=== PATIENT | female | born 1945 | race Caucasian/White ===

== ENCOUNTER 2024-04-15 17:43 | Inpatient (IN) | payer MEDICARE, SELFPAY ==
[2024-04-15] VITALS (7 sets, daily range): BP systolic 121–162; BP diastolic 63–86; PULSE 75–95; TEMP 36.7–36.8; O2SAT 75–100; BMI 29.9; BMI 27.2
--- NOTE | 2024-04-15 17:53 | CT_ITS ---
The [address] [address] Patient Name: KENTON EATON MRN: [id number] date: 1945 Sex: F Assigned Patient Location: ED.MAIN Current Patient Location: ER Accession/Order Number: [id number] Exam Date: 04/15/2024 18:38 Report Date: 04/15/2024 20:39 At the request of: AMBREEN THOMPSON Procedure: CT pelvis wo con EXAM: CT pelvis wo con HISTORY: Fell 2 days ago. COMPARISON: AP pelvis x-ray 10/29/2020 and left femur x-ray 04/15/2024 TECHNIQUE: Contiguous thin section axial scans obtained from mid abdomen just above iliac crest contiguously through the pelvis to the proximal femoral diaphyseal region with coronal and sagittal reformatted images. Reviewed in bone and soft tissue windows. Dose reduction techniques were achieved by using automated exposure control and/or adjustment of mA and/or kV according to patient size and/or use of iterative reconstruction technique. FINDINGS: There is an acute nondisplaced fracture involving the left greater trochanter. No extension along the intertrochanteric ridge or involving the lesser trochanter. This is confined to the posterior midportion of the greater trochanter. There is associated minimal adjacent hematoma around left greater trochanter. No additional acute fractures are identified in the lower lumbar spine or pelvis or femurs elsewhere. Significant osseous demineralization with suspected osteoporosis. 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 There is an old healed right ischial tuberosity fracture as well. No lytic or blastic bone process. There is severe degenerative disc disease at L4-5 with vacuum disc phenomenon and disc osteophyte changes contributing to bilateral moderate to severe neural foraminal narrowing. Severe bilateral L5-S1 facet arthropathy with preserved disc height. The imaged lower abdomen and pelvic structures are without acute abnormality otherwise. Mild stool retention. No acute or concerning bowel pathology. Urinary bladder is unremarkable. No pelvic abnormality. No pelvic mass or fluid collection or ascites. No adenopathy. CT/CT pelvis wo con IMPRESSION: 1. Acute nondisplaced LEFT greater trochanteric fracture with some minimal adjacent hematoma formation around fracture. 2. Osteoporosis suspected with significant demineralized bone. 3. 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 Electronically authenticated by: MOMO MUNOZ Date: 04/15/2024 20:39
--- NOTE | 2024-04-15 17:53 | ECG_ITS ---
The [facility] Test Date: 2024-04-15 Pat Name: KENTON EATON Department: Room: - Gender: Female [employer] Worker: : 1945 Requested By: [id number] Order Number: [id number] Reading MD: TOBIN REED Measurements Intervals [place] Rate: 73 P: 75 CO: 206 QRS: 79 QRSD: 86 T: 61 QT: 378 QTc: 404 Interpretive Statements 1100 Sinus rhythm 9110 normal ECG No previous ECG available for comparison Electronically Signed On 04-17-2024 8:51:41 EST by TOBIN REED
--- NOTE | 2024-04-15 17:53 | XR_ITS ---
[address] [address] Patient Name: KENTON EATON MRN: [id number] date: 1945 Sex: F Assigned Patient Location: ED.MAIN Current Patient Location: ER Accession/Order Number: [id number] Exam Date: 04/15/2024 18:48 Report Date: 04/15/2024 20:32 At the request of: AMBREEN THOMPSON Procedure: XR chest 1V EXAMINATION: XR chest 1V, , 04/15/2024 6:48 PM EST INDICATION: Fall HISTORY: Ordering Provider Reason for Exam: Fall Technologist Note: Additional: COMPARISON: None. TECHNIQUE: Chest x-ray: One view. FINDINGS: No pneumothorax, pleural effusion or focal airspace consolidation. Heart is normal in size. Bony thorax is unremarkable. XR/XR chest 1V IMPRESSION: No acute cardiopulmonary process. Electronically authenticated by: MERCEDES MCCARTHY Date: 04/15/2024 20:32
--- NOTE | 2024-04-15 17:55 | ED.GENADUL1 ---
HPI HPI - General Adult General Chief complaint: Fall Stated complaint: LEG PAIN, FALL Time Seen by Provider: 04/15/24 17:45 Source: patient Mode of arrival: ambulance Limitations: no limitations History of Present Illness HPI narrative: Patient is a 78-year-old female who presents to the ER from home for evaluation of worsening left lower extremity pain after a fall 2 days ago. She states she has a walker at home, she was carrying different items throughout her home when she picked up a water bottle and lost her balance falling on her left side. She complains of pain primarily over the left hip laterally radiating into the left thigh. She does have pain in the left knee and lower leg into the foot as well. She states she was able to ambulate yesterday and was able to transfer some with her walker earlier today but is having a harder time with her mobility. She requests a Avina catheter because she states it is hard for her to get up and walk to the bathroom at home. She is not anticoagulated. She denies head injury, loss of consciousness. She has no pain to the neck or back. Patient was noted to be hypoxic at 75% on room air on arrival to the ER, she refuses to wear home oxygen even though it is prescribed for her because she states it makes her nose dry. She denies feeling short of breath or having chest pain. Related Data Home Medications ?Medication ?Instructions ?Recorded ?Confirmed allopurinol 100 mg tablet mg 04/15/24 atorvastatin 10 mg tablet mg 04/15/24 baclofen 5 mg tablet mg 04/15/24 dapagliflozin propanediol 10 mg mg 04/15/24 tablet (Farxiga) Allergies Allergy/AdvReac Type Severity Reaction Status Date / Time aspirin Allergy Mild Abdominal Verified 04/15/24 17:53 Pain Opioid HPI Opioid Management Most Recent Opioid Data: No Data to Display PFSH PFSH Social History Little interest or pleasure in doing things: not at all Feeling down, depressed, or hopeless: not at all Exam Constitutional Vital Signs, click to edit/add: Last Vital Signs Temp 98.1 F 04/15/24 17:44 Pulse 95 H 04/15/24 17:44 Resp 24 H 04/15/24 17:44 BP 162/86 H 04/15/24 17:44 Pulse Ox 92 L 04/15/24 17:54 O2 Del Method Nasal Cannula 04/15/24 17:54 O2 Flow Rate 4 04/15/24 17:54 Course Vital Signs Vital signs: Vital Signs Temperature 98.1 F 04/15/24 17:44 Pulse Rate 95 H 04/15/24 17:44 Respiratory Rate 24 H 04/15/24 17:44 Blood Pressure 162/86 H 04/15/24 17:44 Pulse Oximetry 75 L 04/15/24 17:44 Oxygen Delivery Method Room Air 04/15/24 17:44 Temperature 98.1 F 04/15/24 17:44 Pulse Rate 95 H 04/15/24 17:44 Respiratory Rate 24 H 04/15/24 17:44 Blood Pressure 162/86 H 04/15/24 17:44 Pulse Oximetry 92 L 04/15/24 17:54 Oxygen Delivery Method Nasal Cannula 04/15/24 17:54 Oxygen Delivery Flow Rate 4 04/15/24 17:54 Medical Decision Making MDM Narrative Medical decision making narrative: Patient medicated with fentanyl, Norflex, Zofran on arrival. She is resting comfortably. She was hypoxic on arrival and placed on oxygen by nasal cannula. Patient has a nasal cannula at home with oxygen that she is supposed to wear but she refuses because it makes her nostrils dry. She only had hypoxia in the ER when she removed herself from oxygen. CT of the pelvis, x-rays of the left femur, left tib-fib and left foot show the patient has an acute nondisplaced left greater trochanter fracture with old healed fractures of the pelvis. She was also found to have a urinary tract infection. Chest x-ray is unremarkable. She was treated with IV Rocephin for the UTI. I discussed the CT and x-ray findings with Dr. Malhotra for orthopedics who related that this should be nonoperative and he will see the patient tomorrow as a consult. Patient and family are in agreement with admission as the patient has difficulty with her mobility. She is stable at time of admission SUPERVISED APC VISIT, PHYSICIAN ATTESTATION: Based on the medical record the care appears appropriate. ? Medical Records Medical records reviewed: Yes I reviewed the patient's medical records Lab Data Lab results reviewed: Yes I reviewed the patient's lab results Labs: Lab Results 04/15/24 04/15/24 Range/Units 18:05 18:10 WBC 9.2 (4.0-11.0) 10^3/uL RBC 4.11 L (4.20-5.40) 10^6/uL Hgb 13.4 (12.0-16.0) g/dL Hct 42.5 (36.0-48.0) % MCV 103.4 H (81.0-99.0) fL MCH 32.6 (26.7-34.0) pg MCHC 31.5 (29.9-35.2) g/dL RDW 14.4 (11.0-15.0) % Plt Count 143 L (150-450) 10^3/uL MPV 10.1 (9.5-13.5) fL Neut % (Auto) 58.4 (43.0-75.0) % Lymph % (Auto) 21.7 (20.5-60.0) % [place] % (Auto) 12.6 H (1.7-12.0) % Eos % (Auto) 4.9 (0.9-7.0) % Baso % (Auto) 1.5 (0.2-2.0) % Neut # (Auto) 5.4 (1.4-6.5) 10^3/uL Lymph # (Auto) 2.0 (1.2-3.8) 10^3/uL [place] # (Auto) 1.2 H (0.3-0.8) 10^3/uL Eos # (Auto) 0.5 (0.0-0.7) 10^3/uL Baso # (Auto) 0.1 (0.0-0.1) 10^3/uL Abs Immat Gran (auto) 0.08 H (0.00-0.03) 10^3/uL Imm/Tot Granulo (auto) 0.9 H (0.0-0.5) % PT 10.8 (9.0-11.6) sec INR 1.02 Sodium 144 (136-145) mmol/L Potassium 4.7 (3.5-5.1) mmol/L Chloride 107 (98-107) mmol/L Carbon Dioxide 34.0 H (21.0-32.0) mmol/L Anion Gap 7.7 BUN 33.0 H (7.0-18.0) mg/dL Creatinine 1.54 H (0.55-1.02) mg/dL Est GFR ( Amer) 40 L (>=60 mL/min/1.73m^2) Est GFR (Non-Af Amer) 33 L (>=60 mL/min/1.73m^2) BUN/Creatinine Ratio 21.4 Glucose 117 H (74-106) mg/dL Lactate 1.2 (0.4-2.0) mmol/L Calcium 8.7 (8.5-10.1) mg/dL Total Bilirubin 0.5 (0.2-1.0) mg/dL AST 19 (15-37) U/L ALT 19 (14-59) U/L Alkaline Phosphatase 95 (46-116) U/L Troponin I High Sens 33.5 (4.0-51.3) pg/mL NT-Pro-B Natriuret Pep 3290.0 H* (<=1800.0) pg/mL Total Protein 7.1 (6.4-8.2) g/dL Albumin 3.0 L (3.4-5.0) g/dL Globulin 4.1 g/dL Albumin/Globulin Ratio 0.7 Urine Color Yellow (YELLOW) Urine Clarity Clear (CLEAR) Urine pH 6.0 (5.0-9.0) Ur Specific [place] 1.020 (1.005-1.025) Urine Protein 100 A (NEG/TRACE) mg/dL Urine Glucose (UA) >=1000 A (NEGATIVE) mg/dL Urine Ketones Trace A (NEGATIVE) mg/dL Urine Occult Blood Trace-i (NEGATIVE) Urine Nitrite Positive A (NEGATIVE) Urine Bilirubin Negative (NEGATIVE) Urine Urobilinogen 0.2 (0.2-1.0) EU/dL Ur Leukocyte Esterase Negative (NEGATIVE) Urine RBC 2-5 A (0-2) #/HPF Urine WBC 10-20 A (NONE SEEN) #/HPF Ur Squamous Epith Cells Rare (NONE/RARE) #/LPF Urine Crystals None seen (None Seen) #/HPF Urine Bacteria Large A (NONE SEEN) #/HPF Urine Casts None seen (NONE SEEN) #/LPF Urine Mucus Trace A (NONE SEEN) Ur Culture Indicated? Yes Imaging Data Chest x-ray: Attestation: I have reviewed the pertinent imaging results. Radiologist's impression: ITS Impressions Chest X-Ray 04/15/24 17:53 IMPRESSION: No acute cardiopulmonary process. Electronically authenticated by: MERCEDES MCCARTHY Date: 04/15/2024 20:[address] 04/15/24 17:53 IMPRESSION: 1. Acute nondisplaced LEFT greater trochanteric fracture with some minimal adjacent hematoma formation around fracture. 2. Osteoporosis suspected with significant demineralized bone. 3. 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 Electronically authenticated by: MOMO MUNOZ Date: 04/15/2024 20:39 Femur X-Ray 04/15/24 18:40 IMPRESSION: 1. Acute nondisplaced left greater trochanteric fracture. 2. Correlating with CT today, sequelae of old left superior and inferior pubic rami fractures and remote right ischial tuberosity fracture. Please see CT for details. Electronically authenticated by: MOMO MUNOZ Date: 04/15/2024 20:41 Foot X-Ray 04/15/24 18:40 IMPRESSION: No acute bone or joint findings. Electronically authenticated by: MOMO MUNOZ Date: 04/15/2024 20:43 Tibia/Fibula X-Ray 04/15/24 18:40 IMPRESSION: No acute fracture of the left tibia and fibula. Soft tissue swelling is seen. Electronically authenticated by: MERCEDES MCCARTHY Date: 04/15/2024 20:36 ECG Data Attestation: I personally reviewed and interpreted this ECG as follows: (Normal sinus rhythm at a rate of [address] elevation or ectopy. EKG reviewed by attending physician) Discharge Plan Discharge Chief Complaint: Fall Clinical Impression: Closed fracture of greater trochanter of left femur, Acute UTI, Hypoxia Patient Disposition: Admitted As Inpatient Time of Disposition Decision: 21:05 Prescriptions / Home Meds: No Action atorvastatin 10 mg tablet allopurinol 100 mg tablet dapagliflozin propanediol [Farxiga] 10 mg tablet baclofen 5 mg tablet Print Language: Urdu Referrals: Physician,Non-Staff, MD [Physician] - 1 week
[2024-04-15 18:20] LABS: Basophils Absolute Auto 0.1 10^3/uL (0.0-0.1); Basophils Percent Auto 1.5 % (0.2-2.0); Eosinophils Absolute Auto 0.5 10^3/uL (0.0-0.7); Eosinophils Percent Auto 4.9 % (0.9-7.0); Hematocrit 42.5 % (36.0-48.0); Hemoglobin 13.4 g/dL (12.0-16.0); Immature Granulocytes Abs Auto 0.08 10^3/uL (0.00-0.03); Immature Granulocytes Pct Auto 0.9 % (0.0-0.5); Lymphocytes Percent Auto 21.7 % (20.5-60.0); Mean Corpuscular HGB Conc 31.5 g/dL (29.9-35.2); Mean Corpuscular Hemoglobin 32.6 pg (26.7-34.0); Mean Corpuscular Volume 103.4 fL (81.0-99.0); Mean Platelet Volume 10.1 fL (9.5-13.5); Monocytes Absolute Auto 1.2 10^3/uL (0.3-0.8); Monocytes Percent Auto 12.6 % (1.7-12.0); Neutrophils Absolute Auto 5.4 10^3/uL (1.4-6.5); Neutrophils Percent Auto 58.4 % (43.0-75.0); Platelet Count 143 10^3/uL (150-450); Red Blood Count 4.11 10^6/uL (4.20-5.40); Red Cell Distribution Width 14.4 % (11.0-15.0); White Blood Count 9.2 10^3/uL (4.0-11.0)
[2024-04-15 18:22] LABS: Bilirubin Urine NEGATIVE (NEGATIVE); Blood Urine TRACE-I (NEGATIVE); Clarity Urine CLEAR (CLEAR); Color Urine YELLOW (YELLOW); Glucose Urine UA >=1000 mg/dL (NEGATIVE); Ketones Urine TRACE mg/dL (NEGATIVE); Leukocyte Esterase Urine NEGATIVE (NEGATIVE); Nitrite Urine POSITIVE (NEGATIVE); Protein Urine 100 mg/dL (NEG/TRACE); Urobilinogen Urine 0.2 EU/dL (0.2-1.0)
[2024-04-15 18:28] LABS: Urine Microscopic Indicated YES
[2024-04-15 18:33] LABS: Bacteria Urine LARGE #/HPF (NONE SEEN); Cast Seen? NONE SEEN #/LPF (NONE SEEN); Crystals Seen? None Seen #/HPF (None Seen); Mucus Urine TRACE (NONE SEEN); Squamous Epithelial Cell Urine RARE #/LPF (NONE/RARE)
[2024-04-15 18:34] LABS: Urine Culture Indicated YES
[2024-04-15 18:38] LABS: INR 1.02; Prothrombin Time 10.8 sec (9.0-11.6)
--- NOTE | 2024-04-15 18:40 | XR_ITS ---
The [address] [address] Patient Name: KENTON EATON MRN: [id number] date: 1945 Sex: F Assigned Patient Location: ER Current Patient Location: ER Accession/Order Number: [id number] Exam Date: 04/15/2024 18:48 Report Date: 04/15/2024 20:36 At the request of: AMBREEN THOMPSON Procedure: XR tibia fibula LT 2V EXAM: XR tibia fibula LT 2V HISTORY: fall COMPARISON: None. TECHNIQUE: AP and lateral views of the left tibia and fibula FINDINGS: No acute fracture of the left tibia and fibula is seen. Soft tissue swelling is seen. XR/XR tibia fibula LT 2V IMPRESSION: No acute fracture of the left tibia and fibula. Soft tissue swelling is seen. Electronically authenticated by: MERCEDES MCCARTHY Date: 04/15/2024 20:36
--- NOTE | 2024-04-15 18:40 | XR_ITS ---
The [address] [address] Patient Name: KENTON EATON MRN: [id number] date: 1945 Sex: F Assigned Patient Location: ER Current Patient Location: Accession/Order Number: [id number] Exam Date: 04/15/2024 18:48 Report Date: 04/15/2024 20:43 At the request of: AMBREEN THOMPSON Procedure: XR foot LT min 3V EXAM: XR foot LT min 3V HISTORY: fall COMPARISON: None. TECHNIQUE: 3 view left foot. FINDINGS: Osseous demineralization. No acute fracture. Chronic hammertoe changes of second through fourth digits. Remaining joint spaces are maintained. No destructive or lytic or blastic bone lesion. Mild soft tissue swelling of forefoot. Plantar calcaneal enthesopathy. No other osseous lesion. Well-preserved joints and ankle and midfoot. No ankle mortise effusion. XR/XR foot LT min 3V IMPRESSION: No acute bone or joint findings. Electronically authenticated by: MOMO MUNOZ Date: 04/15/2024 20:43
--- NOTE | 2024-04-15 18:40 | XR_ITS ---
The [address] [address] Patient Name: KENTON EATON MRN: [id number] date: 1945 Sex: F Assigned Patient Location: ER Current Patient Location: ER Accession/Order Number: [id number] Exam Date: 04/15/2024 18:48 Report Date: 04/15/2024 20:41 At the request of: AMBREEN THOMPSON Procedure: XR femur LT 2V EXAM: XR femur LT 2V HISTORY: Fall COMPARISON: CT pelvis without same date, 04/15/2024 dictated separately. TECHNIQUE: Left femur imaging from hip to knee. Frontal and lateral views. 4 films, 2 frontal and 2 lateral. FINDINGS: There is an acute nondisplaced fracture near base of left greater trochanter. No other acute fractures are seen involving the left femur or at left hip or knee. Correlating with CT pelvis same day, there are old remote fractures involving left superior and inferior pubic rami and right ischial tuberosity. Please see CT report for details. Osseous demineralization. No lytic or blastic lesions. Left hip joint is maintained. There is some mild osteoarthritic changes at left knee. No joint effusion. No significant soft tissue swelling. XR/XR femur LT 2V IMPRESSION: 1. Acute nondisplaced left greater trochanteric fracture. 2. Correlating with CT today, sequelae of old left superior and inferior pubic rami fractures and remote right ischial tuberosity fracture. Please see CT for details. Electronically authenticated by: MOMO MUNOZ Date: 04/15/2024 20:41
[2024-04-15 18:46] LABS: Lactate/Lactic Acid 1.2 mmol/L (0.4-2.0)
[2024-04-15 18:53] LABS: Alanine Aminotransferase 19 U/L (14-59); Albumin Globulin Ratio 0.7; Alkaline Phosphatase 95 U/L (46-116); Anion Gap 7.7; Aspartate Amino Transferase 19 U/L (15-37); BUN Creatinine Ratio 21.4; Bilirubin Total 0.5 mg/dL (0.2-1.0); Calcium 8.7 mg/dL (8.5-10.1); Chloride 107 mmol/L (98-107); Estimated GFR (African America 40 (>=60 mL/min/1.73m^2); Estimated GFR (Non-African Ame 33 (>=60 mL/min/1.73m^2); Globulin 4.1 g/dL; Glucose 117 mg/dL (74-106); Potassium 4.7 mmol/L (3.5-5.1); Sodium 144 mmol/L (136-145); Total Protein 7.1 g/dL (6.4-8.2)
[2024-04-15] MEDS: ORPHENADRINE 60 MG/ 2 ML VIAL IV (19:07)
[2024-04-15] MEDS: FENTANYL CITRATE/PF 100 MCG/2 ML VIAL 50 MCG IV (19:07)
[2024-04-15] MEDS: ONDANSETRON PF 4 MG/2 ML VIAL IV (19:07)
[2024-04-15] MEDS: CEFTRIAXONE 1,000 MG in 0.9 % SODIUM CHLORIDE 50 ML 100 MG IV (19:08)
[2024-04-15 19:11] LABS: Troponin I High Sensitivity 33.5 pg/mL (4.0-51.3)
[2024-04-16] VITALS (13 sets, daily range): BP systolic 113–149; BP diastolic 66–82; PULSE 78–112; TEMP 36.3–36.8; O2SAT 90–97; BMI 27.2
[2024-04-16 06:10] LABS: Basophils Absolute Auto 0.1 10^3/uL (0.0-0.1); Basophils Percent Auto 1.6 % (0.2-2.0); Eosinophils Absolute Auto 0.4 10^3/uL (0.0-0.7); Eosinophils Percent Auto 5.4 % (0.9-7.0); Hematocrit 43.1 % (36.0-48.0); Hemoglobin 13.4 g/dL (12.0-16.0); Immature Granulocytes Abs Auto 0.06 10^3/uL (0.00-0.03); Immature Granulocytes Pct Auto 0.8 % (0.0-0.5); Lymphocytes Absolute Auto 1.7 10^3/uL (1.2-3.8); Lymphocytes Percent Auto 20.8 % (20.5-60.0); Mean Corpuscular HGB Conc 31.1 g/dL (29.9-35.2); Mean Corpuscular Hemoglobin 32.4 pg (26.7-34.0); Mean Corpuscular Volume 104.4 fL (81.0-99.0); Mean Platelet Volume 10.4 fL (9.5-13.5); Monocytes Percent Auto 12.2 % (1.7-12.0); Neutrophils Absolute Auto 4.7 10^3/uL (1.4-6.5); Neutrophils Percent Auto 59.2 % (43.0-75.0); Platelet Count 157 10^3/uL (150-450); Red Blood Count 4.13 10^6/uL (4.20-5.40); Red Cell Distribution Width 14.4 % (11.0-15.0); White Blood Count 7.9 10^3/uL (4.0-11.0)
[2024-04-16 06:26] LABS: Alanine Aminotransferase 15 U/L (14-59); Albumin Globulin Ratio 0.7; Albumin Level 2.8 g/dL (3.4-5.0); Alkaline Phosphatase 93 U/L (46-116); Anion Gap 6.4; Aspartate Amino Transferase 15 U/L (15-37); BUN Creatinine Ratio 19.6; Bilirubin Total 0.4 mg/dL (0.2-1.0); Calcium 8.4 mg/dL (8.5-10.1); Carbon Dioxide 34.4 mmol/L (21.0-32.0); Chloride 107 mmol/L (98-107); Estimated GFR (African America 43 (>=60 mL/min/1.73m^2); Estimated GFR (Non-African Ame 36 (>=60 mL/min/1.73m^2); Globulin 4.2 g/dL; Glucose 90 mg/dL (74-106); Magnesium 2.2 mg/dL (1.8-2.4); Potassium 4.8 mmol/L (3.5-5.1); Sodium 143 mmol/L (136-145)
--- NOTE | 2024-04-16 08:29 | PM.ORCN ---
History of Present Illness HPI Consult date: 04/16/24 Chief complaint: LEG PAIN, FALL, LEFT HIP FRACTURE, UTI Narrative: Caryn is a 78-year-old female that had presented to the emergency department yesterday after a fall 2 days prior to that. Patient states that she was carrying multiple things throughout her house and had bent over to sweet pickle maker another item and fell. She was admitted to the hospital after a CT scan of the pelvis revealed a nondisplaced greater trochanteric fracture of the femur. Orthopedics was consulted for further evaluation and management. Today she is having a lot of left lateral hip pain, worse with movement. She states that it somewhat radiates down her thigh. She denies any other pain at this time. [facility] Family History (Updated 04/15/24 @ 22:49 by Nat Pitts) Other Family history not known due to adoption Family history of cancer Social History (Updated 04/16/24 @ 06:38 by Nat Pitts) Within the past year, how often did you have a drink containing alcohol: never Score interpretation: A score less than 3 is consistent with normal alcohol consumption. Smoking status: Former smoker Non-prescribed substance use: denies use Highest level of school completed/degree received: 10th grade Little interest or pleasure in doing things: not at all Feeling down, depressed, or hopeless: not at all Feel stressed/tense/nervous/anxious/difficulty sleeping: not at all Meds Home Medications and Allergies Home Medications ?Medication ?Instructions ?Recorded ?Confirmed ?Type allopurinol 100 mg tablet mg 04/15/24 History atorvastatin 10 mg tablet mg 04/15/24 History baclofen 5 mg tablet mg 04/15/24 History dapagliflozin propanediol 10 mg mg 04/15/24 History tablet (Farxiga) Allergies Allergy/AdvReac Type Severity Reaction Status Date / Time aspirin Allergy Mild Abdominal Verified 04/15/24 17:53 Pain Exam Narrative Exam Narrative: On exam patient is in no distress, sitting up in the hospital bed, alert and oriented x 3. Hard of hearing. On inspection of the left hip/thigh there are some healing wounds, no ecchymosis, no erythema, no warmth to touch. On inspection of the bilateral lower extremities there is some ecchymosis to the medial aspect of the foot on the right. There is exquisite tenderness to palpation of the left greater trochanter. Limited ROM of the hip/leg secondary to pain. Positive logroll, pain laterally. 2+ DP pulses palpated bilaterally. 5/5 dorsiflexion/plantarflexion bilaterally. Sensation intact with light touch distally. Constitutional Vital Signs, click to edit/add: Last Vital Signs Temp 97.5 F L 04/16/24 03:42 Pulse 78 04/16/24 03:42 Resp 20 04/16/24 03:42 BP 148/78 H 04/16/24 03:42 Pulse Ox 90 L 04/16/24 06:37 O2 Del Method Nasal Cannula 04/16/24 06:37 O2 Flow Rate 6 04/16/24 06:37 Results Labs Labs: Abnormal lab results 04/15/24 04/15/24 04/16/24 Range/Units 18:05 18:10 05:07 RBC 4.11 L 4.13 L (4.20-5.40) 10^6/uL MCV 103.4 H 104.4 H (81.0-99.0) fL Plt Count 143 L (150-450) 10^3/uL [place] % (Auto) 12.6 H 12.2 H (1.7-12.0) % [place] # (Auto) 1.2 H 1.0 H (0.3-0.8) 10^3/uL Abs Immat Gran (auto) 0.08 H 0.06 H (0.00-0.03) 10^3/uL Imm/Tot Granulo (auto) 0.9 H 0.8 H (0.0-0.5) % Carbon Dioxide 34.0 H 34.4 H (21.0-32.0) mmol/L BUN 33.0 H 28.0 H (7.0-18.0) mg/dL Creatinine 1.54 H 1.43 H (0.55-1.02) mg/dL Est GFR ( Amer) 40 L 43 L (>=60 mL/min/1.73m^2) Est GFR (Non-Af Amer) 33 L 36 L (>=60 mL/min/1.73m^2) Glucose 117 H (74-106) mg/dL Calcium 8.4 L (8.5-10.1) mg/dL NT-Pro-B Natriuret Pep 3290.0 H* (<=1800.0) pg/mL Albumin 3.0 L 2.8 L (3.4-5.0) g/dL Urine Protein 100 A (NEG/TRACE) mg/dL Urine Glucose (UA) >=1000 A (NEGATIVE) mg/dL Urine Ketones Trace A (NEGATIVE) mg/dL Urine Nitrite Positive A (NEGATIVE) Urine RBC 2-5 A (0-2) #/HPF Urine WBC 10-20 A (NONE SEEN) #/HPF Urine Bacteria Large A (NONE SEEN) #/HPF Urine Mucus Trace A (NONE SEEN) H & H 04/15/24 04/16/24 Range/Units 18:05 05:07 Hgb 13.4 13.4 (12.0-16.0) g/dL Hct 42.5 43.1 (36.0-48.0) % Coagulation 04/15/24 Range/Units 18:05 INR 1.02 All other labs normal. Assessment and Plan Assessment and Plan (1) Closed fracture of greater trochanter of left femur: Assessment and Plan: CT of the pelvis was reviewed by myself that revealed an acute nondisplaced LEFT greater trochanteric fracture with some minimal adjacent hematoma formation around fracture. -I discussed with patient and her daughter we will treat this fracture nonoperatively. -WBAT, will likely need wheelchair/walker depending on pain -PT evaluation -Pain control per hospitalist -Okay for discharge from orthopedic standpoint once pain is controlled. -Follow-up in 3 [address] Malhotra for new x-ray and reassessment. Plan discussed with my supervising physician, Dr. Malhotra.
[2024-04-16 09:31] LABS: HCO3 ABG 32.5 mmol/L (22.0-26.0); pH ABG 7.364 (7.350-7.450)
[2024-04-16 09:32] LABS: Allen Test POSITIVE (POSITIVE); Base Excess ABG 7.2 mmol/L (-2.0-2.0); Liters per Minute 6; O2 Mode NC; Oxygen Saturation ABG 88.4 %; Puncture Site RR
[2024-04-16 09:34] LABS: ABG PCO2 57.1 mmHg (35.0-45.0)
[2024-04-16 09:35] LABS: PO2 ABG 53.8 mmHg (80.0-100.0)
--- NOTE | 2024-04-16 09:40 | CT_ITS ---
[address] [address] Patient Name: KENTON EATON MRN: [id number] date: 1945 Sex: F Assigned Patient Location: MS Current Patient Location: MS Accession/Order Number: [id number] Exam Date: 04/16/2024 09:55 Report Date: 04/16/2024 10:43 At the request of: SHAIKH JUAN Procedure: CT angio chest EXAMINATION: CT angio chest HISTORY: hypoxia/sob ; recent fall COMPARISON: CT chest 09/08/2020 TECHNIQUE: Multi-planar CT images were created with IV contrast. Axial, Coronal, and Sagittal images. Dose reduction techniques were achieved by using automated exposure control and/or adjustment of mA and/or kV according to patient size and/or use of iterative reconstruction technique. 3-D reconstruction was performed on a separate workstation. FINDINGS: VASCULATURE: No pulmonary embolism or abnormal opacity. LUNGS: Moderate emphysematous changes with apical predominance. Mild scattered patchy opacities probably within the left lateral lung base; atelectasis versus infiltrates. PLEURA: No mass, effusion, or pneumothorax. JUAN PABLO: No mass or adenopathy. MEDIASTINUM: No mass or adenopathy. CARDIAC: No enlargement, pericardial effusion, or pericardial thickening. AORTA: No aneurysm or dissection. CHEST WALL: No mass or axillary adenopathy. BONES: No bone lesion or fracture. LIMITED ABDOMEN: No suspicious findings. Limited images of the upper abdomen. OTHER: Negative. CT/CT angio chest IMPRESSION: 1. No pulmonary embolism. 2. Moderate emphysematous changes. 3. Trace amount of left basilar atelectasis versus infiltrates. Electronically authenticated by: DEL MEJIA Date: 04/16/2024 10:43
--- NOTE | 2024-04-16 10:39 | CM.NOTE ---
Rounds made with Dr. Shepard, pt continues to require oxygen. Dr. Shepard discussed with pt about ABG's and CTA of chest d/t oxygen requirement at this time. Pt denies having home oxygen. Plan of care discussed with pt and daughter. PT will also evaluate pt for discharge planning. No discharge today.
--- NOTE | 2024-04-16 11:33 | CA_ITS ---
Patient Name: KENTON EATON MR#: [id number] : 1945 Exam Date: 04/16/2024 Ordering Doctor: SHAIKH Jacklyn MARTINEZ . ECHOCARDIOGRAM REPORT PROCEDURE: CA ECHO DOPPLER COMPLETE INDICATIONS: sob/HYPOXIA, elevated BNP COMPARISON: None. DESCRIPTION: COMPLETE ECHOCARDIOGRAM Real-time transthoracic echocardiography with 2D, M-mode, spectral and color flow Doppler performed. QUALITY: Technical quality was good. LEFT VENTRICLE: Normal chamber size. Thickened septal wall. LV EF: Normal left ventricular ejection fraction 55%.No regional wall motion abnormalities. DIASTOLIC: Grade I diastolic dysfunction. ATRIAL SEPTUM: Visually appears intact. LEFT ATRIUM: Mild dilatation. RIGHT ATRIUM: Normal chamber size. RIGHT VENTRICLE: Normal chamber size. Normal right ventricular systolic function. TRICUSPID VALVE: Normal mobility and thickness. No stenosis , Trace regurgitation. Doppler studies reveal moderately (45-60) elevated right sided pressures.RVSP 55 mmHg MITRAL VALVE: Normal mobility and thickness. No evidence of mitral valve stenosis. Mild mitral annular calcification. No mitral regurgitation. AORTIC VALVE: was not adequately visualized. No evidence of aortic valve stenosis. No aortic regurgitation. AORTIC ROOT: Normal diameter and appearance. PULMONIC VALVE: Normal thickness and mobility. No stenosis. No regurgitation. PERICARDIUM: No evidence of pericardial effusion. IVC: IVC is normal in size, does not fully collapse. PLEURA: CONCLUSION: Normal left ventricle chamber size. Thickened septal wall. Normal left ventricular ejection fraction 55%.No regional wall motion abnormalities. Grade I diastolic dysfunction. Moderately elevated right sided pressure.RVSP 55 mmHg Mild mitral annular calcification. Trace tricuspid regurgitation Adult Echocardiography Procedure Report Left Ventricle LVEDD (3.7 - 5.6 cm): 3.66 cm LVESD (2.2 - 4.0 cm): 2.69 cm LVIVS thickness (0.6 - 1.2 cm): 1.84 cm LVPW thickness (0.5 - 1.0 cm): 0.77 cm e': 0.08 m/s E - e': 6.95 LVOT Max Gradient: 2.92 mm[Hg] LVOT Area (cm2): 0.85 m/s Peak Velocity (LVOT): 0.85 m/s Mean Velocity (LVOT): 0.62 m/s LVOT Diameter 2.23 cm Left Atrium LA Volume Index (2D A2C): 38.08 ml/m2 Left Atrium Systolic Dimension: 2.90 cm Mitral Valve MV E to A Ratio: 0.69 Mitral Valve A-Wave Peak Velocity: 0.82 m/s Mitral Valve E-Wave Peak Velocity: 0.57 m/s Right Ventricle Aorta AO Root Diam: 3.62 cm Aortic Valve AoV Area (Peak Diogo): 2.82 cm2, 2.82 cm2 AoV Area (VTI): 2.88 cm2, 2.88 cm2 Peak Velocity(Antegrade Flow): 1.18 m/s Peak Gradient(Antegrade Flow): 5.60 mm[Hg] Mean Velocity(Antegrade Flow): 0.80 m/s Mean Gradient(Antegrade Flow): 2.96 mm[Hg] Velocity Time Integral: 21.81 cm Tricuspid Valve Peak Velocity (Regurgitant Flow): 3.42 m/s Pulmonic Valve Mean Gradient: 1.67 mm[Hg] Mean Velocity: 0.61 m/s Peak Velocity: 0.88 m/s, 0.96 m/s Peak Gradient: 3.70 mm[Hg], 3.06 mm[Hg] Right Atrium Right Atrium Systolic Pressure: 53.65 ml, 53.65 ml Dictated by: Gabriel Bowling MD on 04/16/2024 at 17:01 Approved by: Gabriel Bowling MD on 04/16/2024 at 17:12
--- NOTE | 2024-04-16 11:41 | P.HP_ITS ---
HPI H&P: HPI History of Present Illness Chief complaint: LEG PAIN, FALL, LEFT HIP FRACTURE, UTI Narrative: 78 y o female, lives at home with her son, uses a walker to ambulate, fell at home 2 days ago. She did not hit her head or lost consciousness. Patient reports intractable pain, inability to ambulate and was brought over to ED last night by her family despite her protest. Patient was found to have left greater trochanteric fx but also noted to have significant hypoxia with Pulse Ox as low 75% that required O2 supplementation. It was reported by ED that patient has home O2 and she refuses to wear it but this is not true and she has not been prescribed O2 at home. She was also noted to have UTI on UA. but patient herself refused any urinary complaints. She seems to have poor insight and possible cognitive impairment, not formally evaluated for dementia but daughter agreed t hat she likely has early signs of dementia. Patient was on 6 L O2 via NC, but still hypoxic and was placed on high flow O2. Patient has no resp symptoms and surprisingly denies SOB, cough. Patient is complaining of poorly controlled left leg pain and was fearful that she will have to participate in PT. Patient was seen by orthopedic surgery - she is going to be managed non operatively with pain Opioid HPI Opioid Management Most Recent Pain and Opioid Data: Last Pain Scale 3 04/16/24 11:34 04/16/24 Last Pain Intensity 4 04/16/24 11:34 04/16/24 Last Pain Assessment 04/16/24 09:24 Last Pain Assessment 04/16/24 11:46 Last ORT Total Score 0 04/15/24 22:14 04/15/24 Last ORT Risk Category Low Risk 04/15/24 22:14 04/15/24 Review of Systems ROS Status of ROS 10 or more systems reviewed and unremark able except as noted in history and below [facility] Medical History (Updated 04/16/24 @ 11:43 by Shaikh Drea MD) CKD stage 3a, GFR 45-59 ml/min ?N18.31 - Chronic kidney disease, stage 3a (ICD-10) HLD (hyperlipidemia) ?E78.5 - Hyperlipidemia, unspecified (ICD-10) 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 Smoking status: Former smoker Non-prescribed substance use: denies use Highest level of school completed/degree received: 10th grade Little interest or pleasure in doing things: not at all Feeling down, depressed, or hopeless: not at all Feel stressed/tense/nervous/anxious/difficulty sleeping: not at all Meds Home Medications and Allergies Home Medications ?Medication ?Instructions ?Recorded ?Confirmed ?Type allopurinol 100 mg tablet mg 04/15/24 History atorvastatin 10 mg tablet mg 04/15/24 History baclofen 5 mg tablet mg 04/15/24 History dapagliflozin propanediol 10 mg mg 04/15/24 History tablet (Farxiga) Allergies Allergy/AdvReac Type Severity Reaction Status Date / Time aspirin Allergy Mild Abdominal Verified 04/15/24 17:53 Pain Exam Constitutional Vital Signs, click to edit/add: Last Vital Signs Temp 97.5 F L 04/16/24 03:42 Pulse 78 04/16/24 03:42 Resp 20 04/16/24 03:42 BP 148/78 H 04/16/24 03:42 Pulse Ox 90 L 04/16/24 06:37 O2 Del Method Nasal Cannula 04/16/24 11:01 O2 Flow Rate 6 04/16/24 06:37 Documenting provider has reviewed patient's vital signs: yes Common normals: no apparent distress and oriented x3 General appearance: cooperative [facility] Common normals: normocephalic and head/scalp atraumatic Head and scalp: normocephalic and atraumatic Eye Common normals: conjunctivae normal and no scleral icterus Conjunctiva: conjunctiva(e) normal Respiratory Common normals: normal respiratory effort Effort & inspection: able to speak in complete sentences Auscultation: rales bilateral at the base Cardio Common normals: regular rate, S1 normal heart sound and S2 normal heart sound Rate: regular rate Heart sounds: S1 normal and S2 normal GI Common normals: Normal to inspection, nondistended, normoactive bowel sounds present, soft to palpation, non-tender and no hepatosplenomegaly Palpation: soft and no hepatosplenomegaly Extremity Common normals: no clubbing, cyanosis or edema Neuro Common normals: oriented x3, moves all extremities and no focal motor deficits Psych Common normals: mental status grossly normal, denies hallucinations, denies homicidal ideation and denies suicidal ideation Results Labs Labs: Short CBC 04/15/24 04/16/24 Range/Units 18:05 05:07 WBC 9.2 7.9 (4.0-11.0) 10^3/uL Hgb 13.4 13.4 (12.0-16.0) g/dL Hct 42.5 43.1 (36.0-48.0) % Plt Count 143 L 157 (150-450) 10^3/uL BMP 04/15/24 04/16/24 18:05 05:07 Sodium 144 143 Potassium 4.7 4.8 Chloride 107 107 Carbon Dioxide 34.0 H 34.4 H BUN 33.0 H 28.0 H Creatinine 1.54 H 1.43 H Glucose 117 H 90 Calcium 8.7 8.4 L Liver Function 04/15/24 04/16/24 Range/Units 18:05 05:07 Total Bilirubin 0.5 0.4 (0.2-1.0) mg/dL AST 19 15 (15-37) U/L ALT 19 15 (14-59) U/L Alkaline Phosphatase 95 93 (46-116) U/L Albumin 3.0 L 2.8 L (3.4-5.0) g/dL Urine 04/15/24 Range/Units 18:10 Urine Color Yellow (YELLOW) Urine Clarity Clear (CLEAR) Urine pH 6.0 (5.0-9.0) Ur Specific [place] 1.020 (1.005-1.025) Urine Protein 100 A (NEG/TRACE) mg/dL Urine Glucose (UA) >=1000 A (NEGATIVE) mg/dL ABG ABG results: 04/16/24 09:25 ABG pH 7.364 ABG pCO2 57.1 H* ABG pO2 53.8 L* ABG HCO3 32.5 H ABG O2 Saturation 88.4 ABG Base Excess 7.2 H Assessment and Plan Assessment and Plan (1) Acute respiratory failure with hypoxia: Assessment and Plan: No evidence of PE on CTA. No active wheezing or increased work of breathing/resp distress to suggest COPD exacerbation Possibly due to b/l PNA - basilar infiltrates seen. Started on rocephin/azithromyin. Wean off O2 as tolerated. ECHO to assess cardiac structure. Does not appear to be in overt congestive HF. (2) UTI (urinary tract infection): Assessment and Plan: On rocephin. f/u urine cx. Qualifiers: Urinary tract infection type: acute cystitis Hematuria presence: without hematuria Qualified Code(s): N30.00 - Acute cystitis without hematuria (3) Bilateral pneumonia: Assessment and Plan: No cough, SOB but considerable hypoxia noted. Started on rocephin/azithromycin. Duonesb and opep. Monitor, wean off o2 as tolerated. Qualifiers: Pneumonia type: due to unspecified organism Lung location: lower lobe of lung Qualified Code(s): J18.9 - Pneumonia, unspecified organism (4) Closed fracture of greater trochanter of left femur: Assessment and Plan: PT/OT. WBAT. Orthopedic consulted. Conservative/non operative care. Qualifiers: Encounter type: subsequent encounter Fracture alignment: nondisplaced Fracture healing: with routine healing Qualified Code(s): S72.115D - Nond isplaced fracture of greater trochanter of left femur, subsequent encounter for closed fracture with routine healing (5) COPD with emphysema: Assessment and Plan: No active wheezing or bronchospasm. Started on duonebs. Qualifiers: Emphysema type: unspecified Qualified Code(s): J43.9 - Emphysema, unspecified (6) CKD stage 3a, GFR 45-59 ml/min: Assessment and Plan: Cr at baseline. Monitor. (7) HLD (hyperlipidemia): Assessment and Plan: c/w statin Qualifiers: Hyperlipidemia type: unspecified Qualified Code(s): E78.5 - Hyperlipidemia, unspecified Urinary Catheter Management Urinary Catheter Management Urethral: Cath placed during this visit: no
[2024-04-16 11:42] LABS: Glucometer 113 mg/dL (74-106)
--- NOTE | 2024-04-16 11:51 | DIETREC ---
Recommend Ensure 1 container bid po after discharge R/T fracture and abnormal labs
--- NOTE | 2024-04-16 13:10 | SWNOTE1 ---
SW met with pt to discuss dc needs. Pt lives at home with her son and she does use a walker at home. SW and pt spoke about working with therapy and that it is recommended she goes to SNF. Pt then asked when she was having therapy again. SW explained that she will have physical therapy tomorrow, but SW was there to help with plans for when she is stable for discharge from hospital. SW again let her know for her safety it is recommended she go to facility for a short time to get stronger. Pt then said she does not need that and she can go home with her son. SW asked if he was there 02/12. She stated yes. SW asked if he worked and she stated no and that he is a big bhavesh and can help her. SW and pt spoke about Home health versus SNF and that pt would greatly benefit from SNF for a short time. SW provided pt with list from medicare.gov. Pt looked it over and stated she will have her daughter look over it when she returns. SW advised pt that it may be best to have a plan A and B in case she is not able to go home. Plan A being HH and plan B being SNF. Pt is somewhat agreeable to this. SW let her know that SW will come back in 20 minutes to see if family is back from lunch to discuss further. As SW was getting ready to leave pt's daughter, grand-daughter, and son in law came in room. SW explained to them that we were talking about SNF versus Home Health. Pt's family in room expressed that she really needs SNF and told pt that it will be best for her to go to SNF for a short time to get stronger. At that point, pt in agreement to go to rehab. Pt and family looked over list from medicare.gov star ratings. First choice is [place] and second choice is [place]. Pt's daughter did ask SW about completing POA. SW let her know that SW does only do HCPOA, no financial. SW let her know that SW will have to make sure pt is competent to complete one as well. Pt's daughter is going to talk to pt about it and SW may possibly complete one with pt when SW returns.
--- NOTE | 2024-04-16 13:18 | SWNOTE1 ---
It is documented in pt's chart from physician that possible cognitive impairment, not documented Dememtia diagnosis, but early signs of Dementia. SW to assess prior to completing HCPOA.
[2024-04-16] MEDS: 0.9 % SODIUM CHLORIDE 250 ML 10 ML IV (13:33)
[2024-04-16] MEDS: AZITHROMYCIN 500 MG in 0.9 % SODIUM CHLORIDE 250 ML 250 MG IV (13:33)
--- NOTE | 2024-04-16 14:25 | SWNOTE1 ---
SW spoke to Nohelia at [facility] and they are able to accept and the precert has been submitted. SW let pt and pt's family in room know. Correction from earlier documentation; it was pt's son in room not son in law. They also discussed power of deputy prosecuting attorney and pt has completed a power of deputy prosecuting attorney with her other son, Aung. SW advised that pt or family should bring in the POA paperwork to medical records and we can scan it in to our system. They voiced understanding. SW left packet on floor in case of approval and if pt medically stable.
--- NOTE | 2024-04-16 14:58 | SWNOTE1 ---
LUÍS received message from Nohelia at [facility] and pt's insurance has approved her to go and they are able to accommodate the 7 liters. SW to check with doctor. SW spoke with doctor and pt is not stable for discharge. LUÍS let Nohelia know at [facility]. At this time LUÍS will leave packet on floor in case pt is stable over the weekend for discharge to [facility]. Pt precert is good thru Thursday 04/19. If pt is not able to be discharge by Friday then a new precert will need to be submitted. LUÍS completed HENS and took packet to the floor. LUÍS let nurse and family know of updates.
--- NOTE | 2024-04-16 15:13 | SWNOTE1 ---
SW completed HENS online and took packet to the floor.
[2024-04-16 15:49] LABS: Glucometer 108 mg/dL (74-106)
--- NOTE | 2024-04-16 15:54 | SWNOTE1 ---
Pt's son Aung was in room and SW updated him about [facility]. Aung also brought in pt's HCPOA. SW made copy and placed in chart and put copy in packet for [facility].
[2024-04-16] MEDS: IPRATROPIUM/ALBUTEROL SULFATE 3 ML AMPUL.NEB IH (17:28)
[2024-04-16] MEDS: CEFTRIAXONE 1,000 MG in 0.9 % SODIUM CHLORIDE 50 ML 100 MG IV (21:25)
[2024-04-16 21:26] LABS: Glucometer 260 mg/dL (74-106)
[2024-04-17] VITALS (24 sets, daily range): BP systolic 116–121; BP diastolic 69–76; PULSE 78–100; TEMP 36.7–37.1; O2SAT 61–100
[2024-04-17 06:41] LABS: Basophils Absolute Auto 0.1 10^3/uL (0.0-0.1); Basophils Percent Auto 1.2 % (0.2-2.0); Eosinophils Absolute Auto 0.4 10^3/uL (0.0-0.7); Hematocrit 43.2 % (36.0-48.0); Hemoglobin 13.2 g/dL (12.0-16.0); Immature Granulocytes Abs Auto 0.05 10^3/uL (0.00-0.03); Immature Granulocytes Pct Auto 0.6 % (0.0-0.5); Lymphocytes Absolute Auto 1.7 10^3/uL (1.2-3.8); Lymphocytes Percent Auto 21.4 % (20.5-60.0); Mean Corpuscular HGB Conc 30.6 g/dL (29.9-35.2); Mean Corpuscular Volume 104.9 fL (81.0-99.0); Mean Platelet Volume 10.2 fL (9.5-13.5); Monocytes Absolute Auto 1.1 10^3/uL (0.3-0.8); Monocytes Percent Auto 14.1 % (1.7-12.0); Neutrophils Absolute Auto 4.5 10^3/uL (1.4-6.5); Neutrophils Percent Auto 57.7 % (43.0-75.0); Platelet Count 160 10^3/uL (150-450); Red Blood Count 4.12 10^6/uL (4.20-5.40); Red Cell Distribution Width 14.3 % (11.0-15.0); White Blood Count 7.8 10^3/uL (4.0-11.0)
[2024-04-17 06:57] LABS: Alanine Aminotransferase 12 U/L (14-59); Albumin Globulin Ratio 0.6; Albumin Level 2.6 g/dL (3.4-5.0); Alkaline Phosphatase 84 U/L (46-116); Anion Gap 9.2; Aspartate Amino Transferase 15 U/L (15-37); BUN Creatinine Ratio 18.9; Bilirubin Total 0.4 mg/dL (0.2-1.0); Calcium 8.4 mg/dL (8.5-10.1); Carbon Dioxide 34.4 mmol/L (21.0-32.0); Chloride 105 mmol/L (98-107); Estimated GFR (African America 47 (>=60 mL/min/1.73m^2); Estimated GFR (Non-African Ame 39 (>=60 mL/min/1.73m^2); Globulin 4.2 g/dL; Glucose 87 mg/dL (74-106); Potassium 4.6 mmol/L (3.5-5.1); Sodium 144 mmol/L (136-145); Total Protein 6.8 g/dL (6.4-8.2)
[2024-04-17 08:00] LABS: Troponin I High Sensitivity 13.4 pg/mL (4.0-51.3)
[2024-04-17] MEDS: AZITHROMYCIN 500 MG in 0.9 % SODIUM CHLORIDE 250 ML 125 MG IV (09:49)
[2024-04-17] MEDS: ALLOPURINOL 100 MG TABLET PO (09:49)
[2024-04-17] MEDS: CANAGLIFLOZIN 100 MG TABLET 300 MG PO (09:49)
--- NOTE | 2024-04-17 10:32 | P.PN_ITS ---
Progress Note: Subjective Subjective Interval history: States her breathing does feel better, she is still on high flow supplemental oxygen at 7 L this morning. Trying to taper that. Exam Constitutional Vital Signs, click to edit/add: Last Vital Signs Temp 98.0 F 04/17/24 06:07 Pulse 91 H 04/17/24 09:57 Resp 16 04/16/24 19:23 BP 116/71 04/17/24 06:07 Pulse Ox 90 L 04/17/24 10:02 O2 Del Method High Flow Nasal Cannula 04/17/24 10:02 O2 Flow Rate 7 04/17/24 10:02 Documenting provider has reviewed patient's vital signs: yes Common normals: apparent distress (Moderate respiratory distress with conversation) Respiratory Common normals: no retractions and percussion normal; abnormal respiratory effort (Tachypnea), use of accessory muscles and not clear to ascultation bilaterally (Rhonchi) Cardio Common normals: regular rate, regular rhythm and no murmurs GI Common normals: Normal to inspection, nondistended, normoactive bowel sounds present and soft to palpation Extremity Common normals: normal to inspection and full ROM Progress Note: Objective Labs Labs: Short CBC 04/17/24 Range/Units 06:07 WBC 7.8 (4.0-11.0) 10^3/uL Hgb 13.2 (12.0-16.0) g/dL Hct 43.2 (36.0-48.0) % Plt Count 160 (150-450) 10^3/uL BMP 04/17/24 06:07 Sodium 144 Potassium 4.6 Chloride 105 Carbon Dioxide 34.4 H BUN 25.0 H Creatinine 1.32 H Glucose 87 Calcium 8.4 L Liver Function 04/17/24 Range/Units 06:07 Total Bilirubin 0.4 (0.2-1.0) mg/dL AST 15 (15-37) U/L ALT 12 L (14-59) U/L Alkaline Phosphatase 84 (46-116) U/L Albumin 2.6 L (3.4-5.0) g/dL Progress Note: A&P Assessment and Plan (1) Acute respiratory failure with hypoxia: (2) UTI (urinary tract infection): Qualifiers: Hematuria presence: without hematuria Urinary tract infection type: acute cystitis Qualified Code(s): N30.00 - Acute cystitis without hematuria (3) Bilateral pneumonia: Qualifiers: Lung location: lower lobe of lung Pneumonia type: due to unspecified organism Qualified Code(s): J18.9 - Pneumonia, unspecified organism (4) Closed fracture of greater trochanter of left femur: Qualifiers: Encounter type: subsequent encounter Fracture alignment: nondisplaced Fracture healing: with routine healing Qualified Code(s): S72.115D - Nondisplaced fracture of greater trochanter of left femur, subsequent encounter for closed fracture with routine healing (5) COPD with emphysema: Qualifiers: Emphysema type: unspecified Qualified Code(s): J43.9 - Emphysema, unspecified (6) CKD stage 3a, GFR 45-59 ml/min: (7) HLD (hyperlipidemia): Qualifiers: Hyperlipidemia type: unspecified Qualified Code(s): E78.5 - Hyperlipidemia, unspecified Plan Acute respiratory failure with hypoxia 83% on room air: Continue with current treatment, try IPV's, 1 dose of steroids. UTI (urinary tract infection): Continue with antibiotics, check on cultures Bilateral pneumonia: Continue with current antibiotics as outlined above Closed fracture of greater trochanter of left femur: Plan per orthopedics COPD with emphysema: See plan as outlined above Acute kidney injury with CKD stage 3a, GFR 45-59 ml/min: Monitor labs daily Thrombocytopenia-monitor daily-improved HLD (hyperlipidemia): Continue with home medications Admission status: Hip fracture with pneumonia and acute exacerbation of COPD, medically necessary treatment will span 2 midnights. Inpatient status. Urinary Catheter Management Urinary Catheter Management Urethral: Cath placed during this visit: no
[2024-04-17 11:19] LABS: Glucometer 138 mg/dL (74-106)
[2024-04-17 11:24] LABS: Influenza Virus A Antigen Negative; Influenza Virus B Antigen Negative; Internal Control Within Normal Limits; SARS-CoV-2 Ag NEGATIVE (NEGATIVE)
--- NOTE | 2024-04-17 11:39 | PT.DAILY ---
Physical Therapy Daily Note PT Daily Note/Assess Start: 04/16/24 11:34 Freq: Status: Active Protocol: Document 04/17/24 11:27 [id number] (Rec: 04/17/24 11:38 [id number]) Physical Therapy Daily Note/Assessment Time In/Time Out Time In 09:54 Time Out 10:14 Pain In Pain Level 0 Pain Out Pain Level 0 Subjective Subjective Patient states she really would like to stay in bed. With encouragement patient is willing to participate with PT. Bed alarm disengaged. Therapeutic Exercise Time Therapeutic Exercise 5 Minutes (minutes) Therapeutic Exercise 0 Units Therapeutic Exercise Treatment Therapeutic Exercise Seated LE ther ex to increase functional strength for Treatment return to PLOF. 10 reps each of LIANNA toe/heel raises, LAQ's and hip ABD with lite resistance. Unable to tolerate resisted hip ADD due to increased pain to R medial knee with pressure. Therapeutic Activity Time Therapeutic Activity 15 Minutes (minutes) Therapeutic Activity 1 Units Therapeutic Activity Treatment Bed Mobility Ability Minimum Assist Chair Transfer Minimum Assist Ability Therapeutic Activity Bed mobility: supine to R side lying to sitting with Comments MIN A +1 and VCs to use UE for A. Requires MIN A to scoot to EOB. Performed ther ex as above. Good sitting balance with LIANNA UE support. Gait belt donned, STS to 2WW is MIN A +1. VC's for 1 UE placement on bed to push up and other on 2WW. Patient initially with posterior lean when coming into standing, patient aware of posture and able to self correct without VC's. Patient ambulated ~15 feet with 2WW and CGA to chair at bedside. VC's for hand placement while performing stand to sit, requires MIN A to control descent to chair. Total Physical Therapy Time Total Therapy 20 Minutes Total Physical 1 Therapy Units Summary Daily Note Summary Patient requires VC's for performing functional mobility and safety. Patient required decreased assist with ambulation this date. Patient would benefit from SNF placement to address functional mobility deficits allowing return to PLOF.
[2024-04-17] MEDS: DEXAMETHASONE SOD PHOS 10 MG/ML VIAL IV (12:22)
[2024-04-17 16:03] LABS: Glucometer 112 mg/dL (74-106)
[2024-04-17] MEDS: CEFTRIAXONE 1,000 MG in 0.9 % SODIUM CHLORIDE 50 ML 100 MG IV (19:45)
[2024-04-17 21:07] LABS: Glucometer 128 mg/dL (74-106)
[2024-04-17] MEDS: ATORVASTATIN CALCIUM 10 MG TABLET PO (21:07)
[2024-04-17] MEDS: ENOXAPARIN SODIUM 40 MG/0.4 ML SYRINGE SUBQ (21:07)
[2024-04-18] VITALS (19 sets, daily range): BP systolic 118–126; BP diastolic 61–72; PULSE 79–100; TEMP 36.3–36.7; O2SAT 87–94
--- NOTE | 2024-04-18 06:00 | XR_ITS ---
The [address] [address] Patient Name: KENTON EATON MRN: [id number] date: 1945 Sex: F Assigned Patient Location: [place] Current Patient Location: [place] Accession/Order Number: [id number] Exam Date: 04/18/2024 06:45 Report Date: 04/18/2024 06:59 At the request of: JONAH MCCAIN Procedure: XR chest 1V EXAMINATION: XR chest 1V HISTORY: follow up pneumonia COMPARISON: XR chest 04/15/2024 FINDINGS: LUNGS: Underexpanded lungs with mild opacities/stranding within lateral left lung base. VASCULATURE: No increased pulmonary vasculature. PLEURA: No pneumothorax, effusion, or pleural thickening. CARDIAC: No cardiomegaly or cardiac silhouette abnormality. MEDIASTINUM: No visible mass or adenopathy. BONES: No fracture or visible bone lesion. OTHER: Negative. XR/XR chest 1V IMPRESSION: 1. Low lung volume examination with trace amount of lingular infiltrates versus atelectasis; new since prior study. Electronically authenticated by: DEL MEJIA Date: 04/18/2024 06:59
[2024-04-18 06:50] LABS: Basophils Percent Auto 0.3 % (0.2-2.0); Hematocrit 41.5 % (36.0-48.0); Hemoglobin 12.8 g/dL (12.0-16.0); Immature Granulocytes Abs Auto 0.08 10^3/uL (0.00-0.03); Immature Granulocytes Pct Auto 0.9 % (0.0-0.5); Lymphocytes Absolute Auto 1.1 10^3/uL (1.2-3.8); Lymphocytes Percent Auto 12.5 % (20.5-60.0); Mean Corpuscular HGB Conc 30.8 g/dL (29.9-35.2); Mean Corpuscular Hemoglobin 32.2 pg (26.7-34.0); Mean Corpuscular Volume 104.5 fL (81.0-99.0); Mean Platelet Volume 9.7 fL (9.5-13.5); Monocytes Absolute Auto 0.7 10^3/uL (0.3-0.8); Neutrophils Absolute Auto 6.8 10^3/uL (1.4-6.5); Neutrophils Percent Auto 78.3 % (43.0-75.0); Platelet Count 173 10^3/uL (150-450); Red Blood Count 3.97 10^6/uL (4.20-5.40); White Blood Count 8.7 10^3/uL (4.0-11.0)
[2024-04-18 07:04] LABS: Alanine Aminotransferase 11 U/L (14-59); Albumin Globulin Ratio 0.6; Albumin Level 2.5 g/dL (3.4-5.0); Alkaline Phosphatase 79 U/L (46-116); Anion Gap 9.2; Aspartate Amino Transferase 12 U/L (15-37); BUN Creatinine Ratio 23.8; Bilirubin Total 0.3 mg/dL (0.2-1.0); Calcium 8.6 mg/dL (8.5-10.1); Carbon Dioxide 33.9 mmol/L (21.0-32.0); Chloride 106 mmol/L (98-107); Estimated GFR (African America 48 (>=60 mL/min/1.73m^2); Estimated GFR (Non-African Ame 40 (>=60 mL/min/1.73m^2); Globulin 4.1 g/dL; Glucose 94 mg/dL (74-106); Potassium 5.1 mmol/L (3.5-5.1); Sodium 144 mmol/L (136-145); Total Protein 6.6 g/dL (6.4-8.2)
[2024-04-18] MEDS: AZITHROMYCIN 500 MG in 0.9 % SODIUM CHLORIDE 250 ML 125 MG IV (09:20)
[2024-04-18] MEDS: ALLOPURINOL 100 MG TABLET PO (09:20)
[2024-04-18] MEDS: CANAGLIFLOZIN 100 MG TABLET 300 MG PO (09:20)
--- NOTE | 2024-04-18 09:32 | P.PN_ITS ---
Progress Note: Subjective Subjective Interval history: Patient still with some confusion in terms of her overall condition, denies shortness of breath but is definitely hypoxic between 4 to 5 L requiring for supplemental oxygen. Chest x-ray reviewed Exam Constitutional Vital Signs, click to edit/add: Last Vital Signs Temp 97.3 F L 04/18/24 00:29 Pulse 87 04/18/24 07:53 Resp 18 04/18/24 00:29 BP 118/72 04/18/24 00:29 Pulse Ox 87 L 04/18/24 06:00 O2 Del Method Nasal Cannula 04/18/24 06:00 O2 Flow Rate 4 04/18/24 06:00 Documenting provider has reviewed patient's vital signs: yes Common normals: apparent distress (Moderate respiratory distress with conversation) Respiratory Common normals: no retractions and percussion normal; abnormal respiratory effort (Tachypnea), use of accessory muscles and not clear to ascultation bilaterally (Rhonchi) Auscultation: rhonchi and egophony left lower Cardio Common normals: regular rate, regular rhythm and no murmurs GI Common normals: Normal to inspection, nondistended, normoactive bowel sounds present and soft to palpation Extremity Common normals: normal to inspection and full ROM Progress Note: Objective Labs Labs: Short CBC 04/18/24 Range/Units 06:26 WBC 8.7 (4.0-11.0) 10^3/uL Hgb 12.8 (12.0-16.0) g/dL Hct 41.5 (36.0-48.0) % Plt Count 173 (150-450) 10^3/uL BMP 04/18/24 06:26 Sodium 144 Potassium 5.1 Chloride 106 Carbon Dioxide 33.9 H BUN 31.0 H Creatinine 1.30 H Glucose 94 Calcium 8.6 Liver Function 04/18/24 Range/Units 06:26 Total Bilirubin 0.3 (0.2-1.0) mg/dL AST 12 L (15-37) U/L ALT 11 L (14-59) U/L Alkaline Phosphatase 79 (46-116) U/L Albumin 2.5 L (3.4-5.0) g/dL Progress Note: A&P Assessment and Plan (1) Acute respiratory failure with hypoxia: (2) UTI (urinary tract infection): Qualifiers: Hematuria presence: without hematuria Urinary tract infection type: acute cystitis Qualified Code(s): N30.00 - Acute cystitis without hematuria (3) Bilateral pneumonia: Qualifiers: Lung location: lower lobe of lung Pneumonia type: due to unspecified organism Qualified Code(s): J18.9 - Pneumonia, unspecified organism (4) Closed fracture of greater trochanter of left femur: Qualifiers: Encounter type: subsequent encounter Fracture alignment: nondisplaced Fracture healing: with routine healing Qualified Code(s): S72.115D - Nondisplaced fracture of greater trochanter of left femur, subsequent encounter for closed fracture with routine healing (5) COPD with emphysema: Qualifiers: Emphysema type: unspecified Qualified Code(s): J43.9 - Emphysema, unspecified (6) CKD stage 3a, GFR 45-59 ml/min: (7) HLD (hyperlipidemia): Qualifiers: Hyperlipidemia type: unspecified Qualified Code(s): E78.5 - Hyperlipidemia, unspecified Plan Acute respiratory failure with hypoxia 83% on room air: Continue with current treatment, try IPV's, 1 dose of steroids. UTI (urinary tract infection): Continue with antibiotics, check on cultures Bilateral pneumonia: Consider CTA tomorrow if not improving. Was down to 4 L but now is requiring 5, encourage patient to use her aerosols which she was refusing up until late yesterday Closed fracture of greater trochanter of left femur: Plan per orthopedics COPD with emphysema: See plan as outlined above Acute kidney injury with CKD stage 3a, GFR 45-59 ml/min: Monitor labs daily Thrombocytopenia-monitor daily-improved HLD (hyperlipidemia): Continue with home medications Admission status: Hip fracture with pneumonia and acute exacerbation of COPD, medically necessary treatment will span 2 midnights. Inpatient status. Urinary Catheter Management Urinary Catheter Management Urethral: Cath placed during this visit: no
[2024-04-18] MEDS: IPRATROPIUM/ALBUTEROL SULFATE 3 ML AMPUL.NEB IH ×3 (10:14→22:49)
[2024-04-18] MEDS: METHYLPREDNISOLONE SOD SUCC PF 125 MG/2 ML VIAL 60 MG IVP ×3 (10:21→21:36)
[2024-04-18 11:29] LABS: Glucometer 113 mg/dL (74-106)
[2024-04-18 15:53] LABS: Glucometer 218 mg/dL (74-106)
[2024-04-18 20:24] LABS: Glucometer 215 mg/dL (74-106)
[2024-04-18] MEDS: CEFTRIAXONE 1,000 MG in 0.9 % SODIUM CHLORIDE 50 ML 100 MG IV (20:43)
[2024-04-18] MEDS: ATORVASTATIN CALCIUM 10 MG TABLET PO (21:36)
[2024-04-18] MEDS: ENOXAPARIN SODIUM 40 MG/0.4 ML SYRINGE SUBQ (21:36)
[2024-04-19] VITALS (8 sets, daily range): BP systolic 120; BP diastolic 63; PULSE 90–107; TEMP 36.6; O2SAT 92
[2024-04-19] MEDS: METHYLPREDNISOLONE SOD SUCC PF 125 MG/2 ML VIAL 60 MG IVP ×2 (04:18→09:24)
[2024-04-19 06:29] LABS: Hematocrit 42.4 % (36.0-48.0); Mean Corpuscular HGB Conc 30.7 g/dL (29.9-35.2); Mean Corpuscular Hemoglobin 32.2 pg (26.7-34.0); Mean Platelet Volume 10.3 fL (9.5-13.5); Platelet Count 201 10^3/uL (150-450); Red Blood Count 4.04 10^6/uL (4.20-5.40); Red Cell Distribution Width 14.1 % (11.0-15.0); White Blood Count 12.1 10^3/uL (4.0-11.0)
[2024-04-19 06:42] LABS: Alanine Aminotransferase 14 U/L (14-59); Albumin Globulin Ratio 0.6; Albumin Level 2.7 g/dL (3.4-5.0); Alkaline Phosphatase 85 U/L (46-116); Anion Gap 9.2; Aspartate Amino Transferase 16 U/L (15-37); BUN Creatinine Ratio 22.6; Bilirubin Total 0.2 mg/dL (0.2-1.0); Calcium 8.8 mg/dL (8.5-10.1); Carbon Dioxide 32.8 mmol/L (21.0-32.0); Chloride 106 mmol/L (98-107); Estimated GFR (African America 47 (>=60 mL/min/1.73m^2); Estimated GFR (Non-African Ame 39 (>=60 mL/min/1.73m^2); Globulin 4.3 g/dL; Glucose 142 mg/dL (74-106); Sodium 143 mmol/L (136-145)
[2024-04-19 06:59] LABS: Band Neutrophils Absolute 0.5 10^3/uL (0.0-0.3); Hypochromasia 1+; Lymphocytes Absolute Manual 0.24 10^3/uL (1.20-3.80); Monocytes Absolute Manual 0.24 10^3/uL (0.30-0.80); Segmented Neut Absolute Manual 11.13 10^3/uL (1.4-6.5)
--- NOTE | 2024-04-19 07:02 | P.PN_ITS ---
Progress Note: Subjective Subjective Interval history: Patient still with some confusion in terms of her overall condition, denies shortness of breath but is definitely hypoxic between 4 to 5 L requiring for supplemental oxygen. Chest x-ray reviewed Exam Constitutional Vital Signs, click to edit/add: Last Vital Signs Temp 97.9 F 04/19/24 03:59 Pulse 98 H 04/19/24 06:00 Resp 18 04/19/24 03:59 BP 120/63 04/19/24 03:59 Pulse Ox 92 L 04/19/24 03:59 O2 Del Method Nasal Cannula 04/19/24 03:59 O2 Flow Rate 4 04/19/24 03:59 Progress Note: Objective Labs Labs: Short CBC 04/19/24 Range/Units 05:45 WBC 12.1 H (4.0-11.0) 10^3/uL Hgb 13.0 (12.0-16.0) g/dL Hct 42.4 (36.0-48.0) % Plt Count 201 (150-450) 10^3/uL BMP 04/18/24 04/19/24 06:26 05:45 Sodium 144 143 Potassium 5.1 5.0 Chloride 106 106 Carbon Dioxide 33.9 H 32.8 H BUN 31.0 H 30.0 H Creatinine 1.30 H 1.33 H Glucose 94 142 H Calcium 8.6 8.8 Liver Function 04/18/24 04/19/24 Range/Units 06:26 05:45 Total Bilirubin 0.3 0.2 (0.2-1.0) mg/dL AST 12 L 16 (15-37) U/L ALT 11 L 14 (14-59) U/L Alkaline Phosphatase 79 85 (46-116) U/L Albumin 2.5 L 2.7 L (3.4-5.0) g/dL Progress Note: A&P Assessment and Plan (1) Acute respiratory failure with hypoxia: (2) UTI (urinary tract infection): Qualifiers: Urinary tract infection type: acute cystitis Hematuria presence: without hematuria Qualified Code(s): N30.00 - Acute cystitis without hematuria (3) Bilateral pneumonia: Qualifiers: Pneumonia type: due to unspecified organism Lung location: lower lobe of lung Qualified Code(s): J18.9 - Pneumonia, unspecified organism (4) Closed fracture of greater trochanter of left femur: Qualifiers: Encounter type: subsequent encounter Fracture alignment: nondisplaced Fracture healing: with routine healing Qualified Code(s): S72.115D - Nondisplaced fracture of greater trochanter of left femur, subsequent encounter for closed fracture with routine healing (5) COPD with emphysema: Qualifiers: Emphysema type: unspecified Qualified Code(s): J43.9 - Emphysema, unspecified (6) CKD stage 3a, GFR 45-59 ml/min: (7) HLD (hyperlipidemia): Qualifiers: Hyperlipidemia type: unspecified Qualified Code(s): E78.5 - H yperlipidemia, unspecified Plan Acute respiratory failure with hypoxia 83% on room air: Continue with current treatment, try IPV's, 1 dose of steroids. UTI (urinary tract infection): Continue with antibiotics, check on cultures Bilateral pneumonia: Consider CTA tomorrow if not improving. Was down to 4 L but now is requiring 5, encourage patient to use her aerosols which she was refusing up until late yesterday Closed fracture of greater trochanter of left femur: Plan per orthopedics COPD with emphysema: See plan as outlined above Acute kidney injury with CKD stage 3a, GFR 45-59 ml/min: Monitor labs daily Thrombocytopenia-monitor daily-improved HLD (hyperlipidemia): Continue with home medications Admission status: Hip fracture with pneumonia and acute exacerbation of COPD, medically necessary treatment will span 2 midnights. Inpatient status. Urinary Catheter Management Urinary Catheter Management Urethral: Cath placed during this visit: no
--- NOTE | 2024-04-19 08:26 | CM.NOTE ---
Rounds made with Dr. Bull, pt will discharge today to [facility] for skilled therapy.
--- NOTE | 2024-04-19 08:46 | P.DS_ITS ---
DS: Providers Provider Date of admission: 04/15/24 21:56 Primary care physician: MANOLO DAILY Consults: 04/16/24 06:44 Occupational Therapy Eval and Treat Routine Reason for consultation: WEAKNESS Physical Therapy Eval and Treat Routine Reason for consultation: WEAKNESS 04/16/24 06:46 Consult to Orthopedics Routine Consulting Provider: Xiang Malhotra Reason for consultation: hip fracture 04/16/24 11:34 Occupational Therapy Eval and Treat Routine Reason for consultation: Weakness DS: Diagnosis Discharge Diagnosis (1) Acute respiratory failure with hypoxia: (2) UTI (urinary tract infection): Qualifiers: Urinary tract infection type: acute cystitis Hematuria presence: without hematuria Qualified Code(s): N30.00 - Acute cystitis without hematuria (3) Bilateral pneumonia: Qualifiers: Pneumonia type: due to unspecified organism Lung location: lower lobe of lung Qualified Code(s): J18.9 - Pneumonia, unspecified organism (4) Closed fracture of greater trochanter of left femur: Qualifiers: Encounter type: subsequent encounter Fracture alignment: nondisplaced Fracture healing: with routine healing Qualified Code(s): S72.115D - Nondisplaced fracture of greater trochanter of left femur, subsequent encounter for closed fracture with routine healing (5) COPD with emphysema: Qualifiers: Emphysema type: unspecified Qualified Code(s): J43.9 - Emphysema, unspecified (6) CKD stage 3a, GFR 45-59 ml/min: (7) HLD (hyperlipidemia): Qualifiers: Hyperlipidemia type: unspecified Qualified Code(s): E78.5 - Hyperlipidemia, unspecified Plan Acute respiratory failure with hypoxia 83% on room air: Continue with current treatment, try IPV's, 1 dose of steroids. UTI (urinary tract infection): Continue with antibiotics, check on cultures Bilateral pneumonia: Improving at the time of discharge Closed fracture of greater trochanter of left femur: Plan per orthopedics COPD with emphysema: See plan as outlined above Acute kidney injury with CKD stage 3a, GFR 45-59 ml/min: Monitor labs daily Thrombocytopenia-monitor daily-improved HLD (hyperlipidemia): Continue with home medications Admission status: Hip fracture with pneumonia and acute exacerbation of COPD, medically necessary treatment will span 2 midnights. Inpatient status. DS: Summary Hospital Course Hospital Course: Patient mated with fracture found to also develop pneumonia with O2 sat in 83%, she did require high flow supplemental oxygen of 7 to 8 L. She tolerated that well, placed on IV antibiotics and aerosol treatments. Steroids were added yesterday, she did have improvement with that. She is down to 4 L supplemental oxygen currently from a hip fracture standpoint she is progressing nicely. She does have elevated white blood cell count with left shift consistent with a bacterial process today. But overall medically stable's will transfer patient to rehabilitation. Continue with antibiotics at rehab. Medications see list. Follow-up PCP after discharge from rehab Status at Discharge Overall status at discharge: patient is not back to baseline Time Spent with Patient Time attestation: Total time spent providing and/or coordinating discharge services: Time spent: greater than 30 minutes Exam Constitutional Vital Signs, click to edit/add: Last Vital Signs Temp 97.9 F 04/19/24 03:59 Pulse 90 04/19/24 08:00 Resp 18 04/19/24 03:59 BP 120/63 04/19/24 03:59 Pulse Ox 92 L 04/19/24 03:59 O2 Del Method Nasal Cannula 04/19/24 03:59 O2 Flow Rate 4 04/19/24 03:59 Documenting provider has reviewed patient's vital signs: yes Common normals: no apparent distress Chest Common normals: inspection of chest normal and palpation of chest normal Respiratory Common normals: normal respiratory effort, no retractions and no use of accessory muscles; not clear to ascultation bilaterally Auscultation: rhonchi Cardio Common normals: regular rate DS: Data Data Completed and Pending Labs on day of discharge: Labs from last 24 hours 04/19/24 04/18/24 04/18/24 05:45 20:22 15:51 WBC 12.1 H RBC 4.04 L Hgb 13.0 Hct 42.4 MCV 105.0 H MCH 32.2 MCHC 30.7 RDW 14.1 Plt Count 201 MPV 10.3 Seg Neuts % (Manual) 92.0 H Band Neutrophils % 4.0 Lymphocytes % (Manual) 2.0 L Monocytes % (Manual) 2.0 Eosinophils % (Manual) 0.0 L Basophils % (Manual) 0.0 L Neutrophils # (Manual) 11.13 H Band Neutrophils # 0.5 H Lymphocytes # (Manual) 0.24 L Monocytes # (Manual) 0.24 L Eosinophils # (Manual) 0.00 Basophils # (Manual) 0.00 Hypochromasia 1+ Sodium 143 Potassium 5.0 Chloride 106 Carbon Dioxide 32.8 H Anion Gap 9.2 BUN 30.0 H Creatinine 1.33 H Est GFR ( Amer) 47 L Est GFR (Non-Af Amer) 39 L BUN/Creatinine Ratio 22.6 Glucose 142 H Calcium 8.8 Total Bilirubin 0.2 AST 16 ALT 14 Alkaline Phosphatase 85 Total Protein 7.0 Albumin 2.7 L Globulin 4.3 Albumin/Globulin Ratio 0.6 POC Glucose 215 H 218 H 04/18/24 11:28 WBC RBC Hgb Hct MCV MCH MCHC RDW Plt Count MPV Seg Neuts % (Manual) Band Neutrophils % Lymphocytes % (Manual) Monocytes % (Manual) Eosinophils % (Manual) Basophils % (Manual) Neutrophils # (Manual) Band Neutrophils # Lymphocytes # (Manual) Monocytes # (Manual) Eosinophils # (Manual) Basophils # (Manual) Hypochromasia Sodium Potassium Chloride Carbon Dioxide Anion Gap BUN Creatinine Est GFR ( Amer) Est GFR (Non-Af Amer) BUN/Creatinine Ratio Glucose Calcium Total Bilirubin AST ALT Alkaline Phosphatase Total Protein Albumin Globulin Albumin/Globulin Ratio POC Glucose 113 H Preliminary micro results at discharge 04/15/24 18:10 Urine Culture - Preliminary Urine [place] Gram negative hayley Discharge Plan Discharge Disposition: Xfer [facility] Discharge Medications: New ipratropium-albuterol 0.5 mg-3 mg(2.5 mg base)/3 mL Solution For Nebulization 3 ml inhalation Q6H Qty: 180 11RF oxycodone-acetaminophen 5-325 mg Tablet 1 tab PO Q6H PRN (Reason: pain) Qty: 120 0RF cefdinir 300 mg capsule 600 mg PO DAILY Qty: 20 0RF prednisone 10 mg tablet 40 mg PO DAILY Qty: 32 0RF Rx Instructions: 4/day for 3 days, 3/day for 3 days, 2/day for 3 days, 1/day for 3 days, 1/2 /day for 4 days Continued atorvastatin 10 mg tablet 10 mg PO .QHS allopurinol 100 mg tablet 100 mg PO .QD dapagliflozin propanediol [Farxiga] 10 mg tablet 10 mg PO .QD baclofen 5 mg tablet 5 mg PO TID PRN (Reason: pain) Print Language: [place] Islander Classification Control Clerk/Reset Merchandiser Instructions: Discharge to [facility]. Forms: Portal Instructions
[2024-04-19] MEDS: ALLOPURINOL 100 MG TABLET PO (09:22)
[2024-04-19] MEDS: AZITHROMYCIN 500 MG in 0.9 % SODIUM CHLORIDE 250 ML 125 MG IV (09:22)
[2024-04-19] MEDS: 0.9 % SODIUM CHLORIDE 250 ML 10 ML IV (09:22)
[2024-04-19] MEDS: CANAGLIFLOZIN 100 MG TABLET 300 MG PO (09:22)
--- NOTE | 2024-04-19 09:25 | SWNOTE1 ---
Pt is stable for discharge to [facility] today.
--- NOTE | 2024-04-19 09:59 | CM.NOTE ---
2nd Notice of Important Message From Medicare discussed with pt, pt denies any questions or concerns.
--- NOTE | 2024-04-19 10:42 | SWNOTE1 ---
Pt is ready for dc today. LUÍS called and set up trips for 12-12:30. LUÍS sent over physician notes from the weekend, PT from Friday, dc summary, dc med rec, vitals from today, and labs from today to [place]. LUÍS already completed HENS. [facility] and [facility]'s son Aung of time. Pt is going skilled to [facility].
[2024-04-19] MEDS: IPRATROPIUM/ALBUTEROL SULFATE 3 ML AMPUL.NEB IH (11:03)
--- NOTE | 2024-04-19 12:09 | PC.NURSE ---
Signal Operator Linguist attempted to call report to [facility] numerous times. No answer each time. Patient just left with TRIPS. Son was here, he is aware. Patient also called her step daughter and let her know.
== END 2024-04-19 12:09 | DRG 535 ==
LOC: ER 21:13 → MS 22:01
PROVIDERS: Internal Medicine; Physician Assistant; Registered Nurse; Admitting Provider Family Medicine; Emergency Provider Emergency Medicine; PCP Family Medicine; Visit Provider Family Medicine
DX: S72.115A Nondisplaced fracture of greater trochanter of left femur, initial encounter for closed fracture (principal); J18.9 Pneumonia, unspecified organism; J96.01 Acute respiratory failure with hypoxia; N30.00 Acute cystitis without hematuria; J44.1 Chronic obstructive pulmonary disease with (acute) exacerbation; B96.20 Unspecified Escherichia coli [E. coli] as the cause of diseases classified elsewhere; D69.6 Thrombocytopenia, unspecified; J43.9 Emphysema, unspecified; N18.31 Chronic kidney disease, stage 3a; E78.5 Hyperlipidemia, unspecified; W18.39XA Other fall on same level, initial encounter; Z88.6 Allergy status to analgesic agent; Z79.899 Other long term (current) drug therapy
CPT/HCPCS: 36415; 36600; 51702; 71045; 71275; 72192; 73552; 73590; 73630; 80053; 81001; 82805; 82948; 83605; 83735; 83880; 84484; 85007; 85025; 85027; 85610; 87086; 87150; 87186; 87804; 87811; 93005; 93306; 94640; 94667; 94668; 94761; 96365; 96375; 97161; 97165; 97530; 99285; J0456; J0696; J1100; J1650; J2360; J2405; J2919; J3010; Q9967

== ENCOUNTER 2025-01-25 13:50 | Inpatient (IN) | payer MEDICARE, SELFPAY ==
[2025-01-25] VITALS (27 sets, daily range): BP systolic 135–158; BP diastolic 60–75; PULSE 74–206; RESP 16; TEMP 36.5–37.1; O2SAT 58–97; BMI 27.6; BMI 31.3
--- OUTSIDE RECORDS SUMMARY | 2025-01-25 14:11 | XMS_ITS | Encounter Summary ---
Author Organization [facility] Address [facility] [id number] [address] [place] [address] Care Team Providers Care Trashman Name Role Phone Varun Veliz DO Primary Care Provider [phone]- [phone] Reason for Visit * Reason Comments Med Refill Encounter Details Date Type Department Care Team (Late st Contact Info) Description 11/07/2022 Refill [facility] [address] [place] [address] Varun Veliz DO [address], [facility] [place] [address] Essential hypertension Social History Tobacco Use Types Packs/Day Years Used Date Smoking Tobacco: Former Cigarettes 1 30 Smokeless Tobacco: Never Alcohol Use Standard Drinks/Week Comments Not Currently 0 (1 standard drink = 0.6 oz pur e alcohol) Social Connection and Isolat ion Panel [NHANES] Answer Date Recorded In a typical week, how many times do you talk on the phone with family, friends, or neighbors? More than three times a week 08/15/2022 How often do you get togethe r with friends or relatives? Never 08/15/2022 How often do you attend chur ch or tenriism services? Never 08/15/2022 Do you belong to any clubs o r organizations such as congregational groups, unions, fraternal or athletic groups, or school groups? No 08/15/2022 How often do you attend meet ings of the clubs or organizations you belong to? Never 08/15/2022 Are you , , di vorced, , never , or living with a partner? 08/15/2022 AUDIT-C Answer Date Recorded Q1: How often do you have a drink containing alcohol? Never 08/15/2022 Q2: How many drinks containi ng alcohol do you have on a typical day when you are drinking? Patient does not drink Q3: How often do you have si x or more drinks on one occasion? Never 08/15/2022 Overall Financial Resource Strain (CARDIA) Answe r Date Recorded How hard is it for you to pa y for the very basics like food, housing, medical care, and heating? Not hard at all 08/15/2022 PHQ-2 Answer Date Recorded Total Score 0 08/23/2022 [facility] - Occupational Stress Questionnaire Answer Date Recorded Do you feel stress - tense, restless, nervous, or anxious, or unable to sleep at night because your mind is troubled all the time - these days? Not at all 08/15/2022 Exercise Vital Sign Answer Date Recorde d On average, how many days pe r week do you engage in moderate to strenuous exercise (like a brisk walk)? 0 days 08/15/2022 On average, how many minutes do you engage in exercise at this level? 0 min 08/15/2022 PRAPARE - Transportation Answer Date Re corded In the past 12 months, has l ack of transportation kept you from medical appointments or from getting medications? No 10/2022 In the past 12 months, has l ack of transportation kept you from meetings, work, or from getting things needed for daily living? No 08/15/2022 Housing Instability Answer Date Recorde d Are you worried or concerned that in the next two months you may not have stable housing that you own, rent or stay in as a part of a household? No 08/15/2022 Childcare Answer Date Recorded Do problems getting child ca re make it difficult for you to work or study? No 08/15/2022 Employment Answer Date Recorded Do you need help finding a the [facility] career center and/or a training program? No 08/15/2022 Hunger Screening Answer Date Recorded Within the past 12 months we worried whether our food would run out before we got money to buy more. Never True 08/15/2022 Within the past 12 months th e food we bought just didn't last and we didn't have money to get more. Never True 08/15/2022 Purpose - Life Answer Date Recorded I have a purpose and direction in my life. Stron gly Agree 08/15/2022 Comments Unknown Sex and Gender Information Value Date Recorded Sex Assigned at Not on file Legal Sex Female 9:44 AM EDT Gender Identity Not on file Sexual Orientation Not on file documented as of this encounter Miscellaneous Notes * Telephone Encounter - Varun Veliz DO - 11/07/2022 12:59 PM EDT She was due for a blood pressure recheck but she canceled. Please reschedule * Telephone Encounter - Madison Escobedo - 11/07/2022 12:59 PM EDT Called to talk to patient to schedule appt she said not right now and hung up documented in this encounter Plan of Treatment Upcoming Encounters Date Type Department Care Team (Late st Contact Info) Description 04/13/2025 10:30 AM EST Office Visit [facility] [address] [place] [address] Varun Veliz DO [address] [facility] [place] [address] 12/13/2025 11:00 AM EDT Office Visit [facility] [address] [place] [address] documented as of this encounter Visit Diagnoses Diagnosis Essential hypertension Unspecified essential hypertension documented in this encounter Additional Health Concerns Assessment Noted Time PHQ-9 Depression Total Score: 0 08/24/19 23 10:05 AM EDT documented as of this encounter Care Teams Trashman Relationship Specialty Start Date End Date Varun Veliz DO [address], [facility] [address] PCP - General Family Medicine 01/25/22 documented as of this encounter
--- OUTSIDE RECORDS SUMMARY | 2025-01-25 14:11 | XMS_ITS | Clinical Summary ---
Author Organization [facility] Address [address] [facility] [place] [address] Care Team Providers Care Supervisor Show Operations Name Role Phone Unallocated, Noms Provider Primary Care Provi loretta Social History Tobacco Use Types Packs/Day Years Used Date Smoking Tobacco: Never Assessed Comments Unknown Sex and Gender Information Value Date Recorded Sex Assigned at Not on file Legal Sex Female 8:00 PM EDT Gender Identity Not on file Sexual Orientation Not on file Last Filed Vital Signs Vital Sign Reading Time Taken Comments Blood Pressure 130/84 07/24/2020 12:00 PM EDT Pulse - - Temperature - - Respiratory Rate - - Oxygen Saturation - - Inhaled Oxygen Concentration - - Weight 81.3 kg (179 lb 3.2 oz) 07/24/2020 12:00 PM EDT Height 167.6 cm (5' 6 ) 07/24/2020 12:00 PM EDT Body Mass Index 28.92 07/24/2020 12:00 PM EDT Plan of Treatment Health Maintenance Due Date Last Done Comments Pneumococcal Vaccine: 65+ Ye ars (1 of 2 - PCV) 1964 Medicare Annual Wellness (AWV) 09/17/2024 0 09/18/2023, 08/15/2022, 08/15/2022 Influenza Vaccine (#1) 2025 Insurance [employer] MED[employer]ARE ADVANTAGE Care Teams Supervisor Show Operations Relationship Specialty Start Date End Date Unallocated, Noms Provider, [address] [place] [address] PCP - General 02/05/23
--- OUTSIDE RECORDS SUMMARY | 2025-01-25 14:11 | XMS_ITS | Encounter Summary ---
Author Organization [facility] Address [facility] [id number] [address] [place] [address] Care Team Providers Care Precipitation Equipment Tender Name Role Phone Varun Veliz DO Primary Care Provider [phone]- [phone] Reason for Visit * Reason Comments Med Refill Encounter Details Date Type Department Care Team (Late st Contact Info) Description 09/06/2022 Refill [facility] - [facility] [address] [place] [address] Varun Veliz DO [address], [facility] [address] Other specified disorders of bone, other site Social History Tobacco Use Types Packs/Day Years [...] often do you attend chur ch or jewish services? Never 08/15/2022 Do you belong to any clubs o r organizations such as confucianist groups, unions, fraternal or athletic groups, or [...] Answer Date Recorded Total Score 0 08/23/2022 [facility] - Occupational [...] Recorded Do you need help finding a [facility] career center and/or a training program? No [...] on file Sexual Orientation Not on file COVID-19 Exposure Response Date Recorded In the last month, have you been in contact with someone who was confirmed or suspected to have Coronavirus / COVID-19? No / Unsure 08/15/2022 3:47 PM EDT documented as of this encounter Plan of Treatment Upcoming Encounters Date Type Department Care Team (Late st Contact Info) Description 04/13/2025 10:30 AM EST Office Visit [facility] [address] [place] [address] Varun Veliz DO [address] [place] [address] 12/13/2025 11:00 AM EDT Office Visit [facility] [address] [place] [address] documented as of this encounter Visit Diagnoses Diagnosis Other specified disorders of bone, other site documented in this encounter Additional Health Concerns Assessment Noted Time PHQ-9 Depression Total Score: 0 08/24/19 23 10:05 AM EDT documented as of this encounter Care Teams Precipitation Equipment Tender Relationship Specialty Start Date End Date Varun Veliz DO [address] [facility] [address] PCP - General Family Medicine 01/25/22 documented as of this encounter
--- OUTSIDE RECORDS SUMMARY | 2025-01-25 14:11 | XMS_ITS | Encounter Summary ---
Author Organization [facility] tem Address [id number] [address] [place] [address] Care Team Providers Care Sales And Service Associate Name Role Phone Varun Veliz DO Primary Care Provider Reason for Visit * Reason Comments Med Refill Encounter Details Date Type Department Care Team (Late Contact Info) Description 03/04/2022 Refill [facility] - Family Medicine [address] [place] [address] Varun Veliz DO [address] [place] [address] Other specified disorders of bone, other site Social History Tobacco Use Types Packs/Day Years Used Date Smoking Tobacco: Former Cigarettes 1 30 Smokeless Tobacco: Never Alcohol Use Standard Drinks/Week Comments Not Currently 0 (1 standard drink = 0.6 oz pur e alcohol) Comments Unknown Sex and Gender Information Value Date Recorded Sex Assigned at Not on file Legal Sex Female 9:44 AM EDT Gender Identity Not on file Sexual Orientation Not on file documented as of this encounter Plan of Treatment Upcoming Encounters Date Type Department Care Team (Late Contact Info) Description 04/13/2025 10:30 AM EST Office Visit [facility] - Family Medicine [address] [place] [phone] Varun Veliz DO [address] [facility] [place] [address] 12/13/2025 11:00 AM EDT Office Visit [facility] - Family Medicine [address] [place] [address] documented as of this encounter Visit Diagnoses Diagnosis Other specified disorders of bone, other site documented in this encounter Care Teams Sales And Service Associate Relationship Specialty Start Date End Date Varun Veliz DO [address] [facility] [place] [address] PCP - General Family Medicine 01/25/22 documented as of this encounter
--- OUTSIDE RECORDS SUMMARY | 2025-01-25 14:11 | XMS_ITS | Encounter Summary ---
Author Organization [facility] tem Address [id number] [address] [place] [address] Care Team Providers Care Mine Superintendent Name Role Phone Varun Veliz DO Primary Care Provider [phone] Encounter Details Date Type Department Care Team (Late st Contact Info) Description 08/27/2022 Orders Only [facility] - Family Medicine [address] [place] [address] Varun Veliz DO [address], [place] [address] Social History Tobacco Use Types Packs/Day Years [...] often do you attend chur ch or muslim services? Never 08/15/2022 Do you belong to any clubs o r organizations such as mosque groups, unions, fraternal or athletic groups, or [...] Answer Date Recorded Total Score 0 08/23/2022 [facility] of Occupat ional Health - Occupational [...] Recorded Do you need help finding a [facility] career center and/or a training [...] - Family Medicine [address] [place] [address] Varun Veliz DO [address] [place] [address] 12/13/2025 11:00 AM EDT Office Visit [facility] - Family Medicine [address] [place] [address] documented as of this encounter Visit Diagnoses Not on filedocumented in this encounter Additional Health Concerns Assessment Noted Time PHQ-9 Depression Total Score: 0 08/24/19 23 10:05 AM EDT documented as of this encounter Care Teams Mine Superintendent Relationship Specialty Start Date End Date Varun Veliz DO [address] [place] [address] PCP - General Family Medicine 01/25/22 documented as of this encounter
--- OUTSIDE RECORDS SUMMARY | 2025-01-25 14:12 | XMS_ITS | Encounter Summary ---
Author Organization [facility] tem Address [id number] [address] [place] [address] Care Team Providers Care Photoengraving Finisher Name Role Phone Varun Veliz DO Primary Care Provider [phone] Encounter Details Date Type Department Care Team (Late st Contact Info) Description 04/16/2024 Orders Only [facility] - Family Medicine [address] [place] [address] Varun Veliz DO [address], [facility] [place] [address] Social History Tobacco Use Types Packs/Day Years Used Date Smoking Tobacco: Former Cigarettes 1 30 Smokeless Tobacco: Never Alcohol Use Standard Drinks/Week Comments Not Currently 0 (1 standard drink = 0.6 oz pur e alcohol) [facility] Utilities Answer Date Recorded In the past 12 months has [employer], gas, oil, or water [employer] threatened to shut off services in your home? No 09/18/2023 Social Connection and Isolat ion Panel [NHANES] Answer Date Recorded In a typical week, how many times do you talk on the phone with family, friends, or neighbors? More than three times a week 09/18/2023 How often do you get togethe r with friends or relatives? Never 09/18/2023 How often do you attend [facility] or evangelical services? Never 09/18/2023 Do you belong to any clubs o r organizations such as mormonism groups, unions, fraternal or athletic groups, or school groups? No 09/18/2023 How often do you attend meet ings of the clubs or organizations you belong to? Never 09/18/2023 Are you , , di vorced, , never , or living with a partner? 09/18/2023 AUDIT-C Answer Date Recorded Q1: How often [...] PHQ-2 Answer Date Recorded Total Score 0 12/15/2023 [facility] of Occupat ional Health - Occupational [...] exercise (like a brisk walk)? 0 days 09/18/2023 On average, how many minutes do you engage in exercise at this level? 0 min 09/18/2023 PRAPARE - Transportation Answer Date Re corded [...] Recorded Do you need help finding a l ocal career center and/or a training program? No 08/15/2022 Hunger Screening Answer Date Recorded Within the past 12 months we worried whether our food would run out before we got money to buy more. Never True 12/15/2023 Within the past 12 months th e food we bought just didn't last and we didn't have money to get more. Never True 12/15/2023 Purpose - Life Answer Date Recorded I [...] Internal Medicine - Family Medicine [address] [place] [address] Varun Veliz DO [address] [place] [address] 12/13/2025 11:00 AM EDT Office Visit [facility] - Family Medicine [address] [place] [address] documented as of this encounter Visit Diagnoses Not on filedocumented in this encounter Additional Health Concerns Assessment Noted Time PHQ-9 Depression Total Score: 0 12/15/19 24 2:03 PM EDT documented as of this encounter Care Teams Photoengraving Finisher Relationship Specialty Start Date End Date Varun Veliz DO [address] [place] [address] PCP - General Family Medicine 01/25/22 documented as of this encounter
--- OUTSIDE RECORDS SUMMARY | 2025-01-25 14:12 | XMS_ITS | Encounter Summary ---
Author Organization [facility] Address [id number] [address] [place] [address] Care Team Providers Care Flowers Salesperson Name Role Phone Varun Veliz Primary Care Provider Encounter Details Date Type Department Care Team (Late st Contact Info) Description 06/03/2024 Telephone [facility] - Family Medicine [address] [place] [address] Harsha, Yesi, CAREER CONSULTANT Social History Tobacco Use Types Packs/Day Years Used Date Smoking Tobacco: Former Cigarettes 1 30 Smokeless Tobacco: Never Alcohol Use Standard Drinks/Week Comments Not Currently 0 (1 standard drink = 0.6 oz pur e alcohol) [facility] Utilities Answer Date Recorded In the past 12 months has [employer], gas, oil, or water [employer] threatened to shut off services in your home? No 09/18/2023 Social Connection and Isolat ion Panel [NHANES] Answer Date Recorded In a typical week, how many times do you talk on the phone with family, friends, or neighbors? More than three times a week 09/18/2023 How often do you get togethe r with friends or relatives? Never 09/18/2023 How often do you attend chur ch or moravian services? Never 09/18/2023 Do you belong to any clubs o r organizations such as rastafarian groups, unions, fraternal or athletic groups, or [...] Answer Date Recorded Total Score 0 12/15/2023 [facility] of Occupat ional Health - Occupational Stress [...] Do you need help finding a [facility] career center and/or a training program? [...] encounter Miscellaneous Notes * Telephone Encounter - Yesi Mcleod CMA - 06/03/2024 12:41 PM EST Geeta from [facility] called to let you know pt has 3 more weeks approved of pt . Also that when she's up and about her o2 drops down to the 70's recovers in a few seconds to the 90's . Pt refuses to wear her o2 during the day and at night . Pt told geeta that she hasn't worn her 02 is a week ,when sitting she's fine but refuses to wear it when she needs it the most. Son encourages her to wear it also and still refuses documented in this encounter Plan of Treatment Upcoming Encounters Date Type Department Care Team (Late st Contact Info) Description 04/13/2025 10:30 AM EST Office Visit [facility] - Family Medicine [address] [place] [address] Varun Veliz, DO [address], [facility] [place] [address] 12/13/2025 11:00 AM EDT Office Visit [facility] - Family Medicine [address] [place] [address] documented as of this encounter Visit Diagnoses Not on filedocumented in this encounter Additional Health Concerns Assessment Noted Time PHQ-9 Depression Total Score: 0 12/15/19 24 2:03 PM EDT documented as of this encounter Care Teams Flowers Salesperson Relationship Specialty Start Date End Date Varun Veliz DO [address], [facility] [place] [address] PCP - General Family Medicine 01/25/22 documented as of this encounter
--- OUTSIDE RECORDS SUMMARY | 2025-01-25 14:12 | XMS_ITS | Encounter Summary ---
Author Organization [facility] tem Address [id number] [address] [place] [address] Care Team Providers Care Meat Hostess Name Role Phone Varun Veliz DO Primary Care Provider Reason for Visit * Reason Comments Med Refill Encounter Details Date Type Department Care Team (Late Contact Info) Description 05/29/2022 Refill [facility] - Family Medicine [address] [place] [address] Varun Veliz DO [address] [place] [address] Hyperlipidemia, unspecified Social History Tobacco Use Types Packs/Day Years [...] Medicine - Family Medicine [address] [place] [address] Varun Veliz DO [address] [place] [address] 12/13/2025 11:00 AM EDT Office Visit [facility] - Family Medicine [address] [place] [address] documented as of this encounter Visit Diagnoses Diagnosis Hyperlipidemia, unspecified documented in this encounter Care Teams Meat Hostess Relationship Specialty Start Date End Date Varun Veliz DO [address] [place] [address] PCP - General Family Medicine 01/25/22 documented as of this encounter
--- OUTSIDE RECORDS SUMMARY | 2025-01-25 14:12 | XMS_ITS | Encounter Summary ---
Author Organization [facility] Address [id number] [address] [place] [address] Care Team Providers Care Field Crop Ii Farmworker Name Role Phone Varun Veliz Primary Care Provider Encounter Details Date Type Department Care Team (Late st Contact Info) Description 10/18/2024 Telephone [facility] Medicine - Family Medicine [address] [place] [address] Ivanna Squires CMA Social History Tobacco Use Types Packs/Day Years Used Date Smoking Tobacco: Former Cigarettes 1 30 Smokeless Tobacco: Never Alcohol Use Standard Drinks/Week Comments Not Currently 0 (1 standard drink = 0.6 oz pur e alcohol) [facility] Utilities Answer Date Recorded In the past 12 months has [employer], gas, oil, or water [employer] threatened to shut off services in your [...] often do you attend chur ch or protestant services? Never 09/18/2023 Do you belong to any clubs o r organizations such as roman catholic groups, unions, fraternal or athletic groups, or [...] PHQ-2 Answer Date Recorded Total Score 0 10/11/2024 [facility] of Occupat ional Health - Occupational Stress [...] Recorded Do you need help finding a [facility] career center and/or a training program? No 08/15/2022 Hunger Screening Answer Date Recorded Within the past 12 months we worried whether our food would run out before we got money to buy more. Never True 10/11/2024 Within the past 12 months th e food we bought just didn't last and we didn't have money to get more. Never True 10/11/2024 Purpose - Life Answer Date Recorded I have a purpose and direction in my life. Gabbien gly Agree 08/15/2022 Comments Unknown Sex and Gender Information Value Date Recorded Sex Assigned at Not on file Legal Sex Female 9:44 AM EDT Gender Identity Not on file Sexual Orientation Not on file documented as of this encounter Miscellaneous Notes * Telephone Encounter - Ivanna Squires CMA - 10/18/2024 10:04 AM EDT Pt's daughter called in stating the steroids given to pt was really helpful, and was wondering if another round of steroids could be called in. Thank you. * Telephone Encounter - Varun Veliz DO - 10/18/2024 10:04 AM EDT That is not typically done because of the risks of using steroids. We usually followed up with a nonsteroidal anti-inflammatory such as Motrin or aleve. If she is feeling better then I would use 1 ofthose over the counter as needed * Telephone Encounter - Ivanna Squires CMA - 10/18/2024 10:04 AM EDT I spoke with Pt's daughter, and she stated pt can't take motrin, but this has been a long time since pt stated she cannot take. I recommended pt to try the Aleve then. Can she rotate with Tylenol as needed as well? Is it ok to take the motrin if Aleve does not work? * Telephone Encounter - Varun Veliz DO - 10/18/2024 10:04 AM EDT Her kidney tests improved significantly so she could take [id number] Motrin but I would not take it for very long. She can rotate it with Tylenol. It was more for an acute pain for the back of her hand. If it lasts more than a couple weeks she needs to have it x-rayed and be seen again * Telephone Encounter - Ivanna Squires CMA - 10/18/2024 10:04 AM EDT Left message on daughters vm documented in this encounter Plan of Treatment Upcoming Encounters Date Type Department Care Team (Late st Contact Info) Description 04/13/2025 10:30 AM EST Office Visit [facility] - Family Medicine [address] [place] [address] Varun Veliz DO [address] [place] [address] 12/13/2025 11:00 AM EDT Office Visit [facility] - Family Medicine [address] [place] [address] documented as of this encounter Visit Diagnoses Not on filedocumented in this encounter Additional Health Concerns Assessment Noted Time PHQ-9 Depression Total Score: 0 10/12/19 25 12:56 PM EDT documented as of this encounter Care Teams Field Crop Ii Farmworker Relationship Specialty Start Date End Date Varun Veliz DO [address] [place] [address] PCP - General Family Medicine 01/25/22 documented as of this encounter
--- OUTSIDE RECORDS SUMMARY | 2025-01-25 14:12 | XMS_ITS | Encounter Summary ---
Author Organization [facility] Address [id number] [address] [place] [address] Care Team Providers Care Technical Solutions Director Name Role Phone Varun Veliz Primary Care Provider Encounter Details Date Type Department Care Team (Late st Contact Info) Description 05/04/2024 Telephone [facility] [address] [place] [address] Harsha, Yesi, DATA SYSTEMS MANAGER Social History Tobacco Use Types Packs/Day Years Used Date Smoking Tobacco: Former Cigarettes 1 30 Smokeless Tobacco: Never Alcohol Use Standard Drinks/Week Comments Not Currently 0 (1 standard drink = 0.6 oz pur e alcohol) [facility] Utilities Answer Date Recorded In the past 12 months has [employer], gas, oil, or water company threatened to shut off services in your [...] often do you attend chur ch or baptism services? Never 09/18/2023 Do you belong to any clubs o r organizations such as judaism groups, unions, fraternal or athletic groups, or [...] Answer Date Recorded Total Score 0 12/15/2023 [facility] of Occupat ional Health - Occupational Stress [...] Recorded Do you need help finding a [facility] career center and/or a training program? [...] Telephone Encounter - Yesi Mcleod CMA - 05/04/2024 10:58 AM EST Pts son called they have the medicine but they dont have the machine for the solution .. Did you send over an order for the machine to [facility] ? * Telephone Encounter - Varun Veliz DO - 05/04/2024 10:58 AM EST That would've come from the snf and in their packet. I printed out order and can be faxed to [place] documented in this encounter Plan of Treatment Upcoming Encounters Date Type Department Care Team (Late st Contact Info) Description 04/13/2025 10:30 AM EST Office Visit [facility] - Family Medicine [address] [place] [address] Varun Veliz DO [address] [facility] [place] [address] 12/13/2025 11:00 AM EDT Office Visit [facility] - Family Medicine [address] [place] [address] documented as of this encounter Visit Diagnoses Not on filedocumented in this encounter Additional Health Concerns Assessment Noted Time PHQ-9 Depression Total Score: 0 08/05/20 24 2:03 PM EDT documented as of this encounter Care Teams Technical Solutions Director Relationship Specialty Start Date End Date Varun Veliz DO [address], [facility] [place] [address] PCP - General Family Medicine 01/25/22 documented as of this encounter
--- OUTSIDE RECORDS SUMMARY | 2025-01-25 14:12 | XMS_ITS | Encounter Summary ---
Author Organization [facility] Address [id number] [address] [place] [address] Care Team Providers Care Garland Machine Operator Name Role Phone Varun Veliz DO Primary Care Provider Reason for Visit * Reason Comments Med Refill Encounter Details Date Type Department Care Team (Late st Contact Info) Description 10/15/2024 Refill [facility] - Family Medicine [address] [place] [address] Varun Veliz DO [address], [facility] [place] [address] Social History Tobacco Use Types Packs/Day Years Used Date Smoking Tobacco: Former Cigarettes 1 30 Smokeless Tobacco: Never Alcohol Use Standard Drinks/Week Comments Not Currently 0 (1 standard drink = 0.6 oz pur e alcohol) [facility] Utilities Answer Date Recorded In the past 12 months has [employer], gas, oil, or water [employer] threatened to shut off services in your home? No 09/18/2023 Social Connection and Isolat ion Panel [NHANES] Answer Date Recorded In a typical week, how many times do you talk on the phone with family, friends, or neighbors? More than three times a week 09/18/2023 How often do you get togethe r with friends or relatives? Never 09/18/2023 How often do you attend [facility] or yarsani services? Never 09/18/2023 Do you belong to any clubs o r organizations such as jainism groups, unions, fraternal or athletic groups, or [...] Answer Date Recorded Total Score 0 10/11/2024 [facility] of Occupat ional Health - Occupational [...] Recorded Do you need help finding a [facility] career center and/or a training program? [...] - Family Medicine [address] [place] [address] Varun Veliz DO [address] [place] [address] 12/13/2025 11:00 AM EDT Office Visit [facility] - Family Medicine [address] [place] [address] documented as of this encounter Visit Diagnoses Not on filedocumented in this encounter Additional Health Concerns Assessment Noted Time PHQ-9 Depression Total Score: 0 10/12/19 25 12:56 PM EDT documented as of this encounter Care Teams Garland Machine Operator Relationship Specialty Start Date End Date Varun Veliz DO [address] [place] [address] PCP - General Family Medicine 01/25/22 documented as of this encounter
--- OUTSIDE RECORDS SUMMARY | 2025-01-25 14:12 | XMS_ITS | Clinical Summary ---
Author Organization [employer] [facility] Address [facility] [id number] [address] [place] [address] Care Team Providers Care Sewing Room Supervisor Name Role Phone Varun Veliz DO Primary Care Provider Allergies Active Allergy Reactions Criticality Noted Date Comments Aspirin Medications milizguv-uht-DZ- lycopen-lutein (COMPLETE MV ADULT 50 PLUS) 0.4 mg-300 mcg- 250 mcg tablet Take 1 tablet by mouth in the evening. Active loratadine (CLARITIN) 10 mg tabletIndication s:Allergic rhinitis, unspecified seasonality, unspecified trigger Take 1 tablet (10 mg total) by mouth in the morning. 30 tablet 3 Active triamcinolone (KENALOG) 0.1 % cream APPLY 1 application TO THE AFFECTED AREA(S) TWICE DAILY (IN THE MORNING & AT BEDTIME) topically 30 g 4 Active hydroCHLOROthiaz jessica (MICROZIDE) 12.5 mg capsule Take 1 capsule (12.5 mg total) by mouth. 4 Active allopurinoL (ZYLOPRIM) 100 mg tabletIndication s:Chronic gout without tophus, unspecified cause, unspecified site TAKE 1 TABLET BY MOUTH IN THE MORNING 30 tablet 5 5 Active famotidine (PEPCID AC) 10 mg tablet Take 1 tablet (10 mg total) by mouth in the morning and 1 tablet (10 mg total) before bedtime. 5 Active cholecalciferol (VITAMIN D3) 50,000 units capsule Take 1 capsule (50,000 Units total) by mouth once a week. 4 capsule 11 5 Active FARXIGA 10 mg tablet TAKE 1 TABLET BY MOUTH ONCE DAILY IN THE MORNING 30 tablet 5 5 Active atorvastatin (LIPITOR) 10 mg tabletIndication s:Hyperlipidemia , unspecified TAKE 1 TABLET BY MOUTH DAILY 90 tablet 3 5 Active acetaminophen (TYLENOL EXTRA STRENGTH) 500 mg tablet Take 1 tablet (500 mg total) by mouth every 6 (six) hours as needed for pain. Active Active Problems Problem Noted Date Diagnosed Date Closed nondisplaced fracture of greater trochanter of left femur with routine healing 04/27/2024 Pneumonia due to infectious organism 04/27/2024 Acute cystitis without hematuria 04/27/2024 Chronic obstructive pulmonary disease 04/27/2024 Hyperkalemia 12/15/2023 Chronic bilateral low back pain without sciatica 12/15/2023 Hypertensive kidney disease with stage 3b chronic kidney disease 08/01/2022 Hyperlipidemia 08/01/2022 Obesity 10/02/2020 Essential hypertension 06/29/2019 Resolved Problems Problem Noted Date Diagnosed Date Resolved Date Acute respiratory failure with hypoxia 04/27/2024 10/11/2024 Encounters Date Type Department Care Team Description 12/09/2024 10:40 AM EDT Office Visit [facility] [address] [place] [address] Varun Veliz DO Medicare annual wellness visit, subsequent (Primary Dx); Screening for depression 12/09/2024 Orders Only [facility] [address] [place] [address] Varun Veliz DO 12/09/2024 Travel 11/30/2024 Refill [facility] [address] [place] [address] Varun Veliz DO Hyperlipidemia, unspecified 11/15/2024 Refill [facility] [address] [place] [address] Varun Veliz, from Last 3 Months Family History Medical History Relation Name Comments No Known Problems Father Skin cancer Mother Skin cancer Sister Relation Name Status Comments Brother Alive Daughter Alive Father Mother Sister Alive Son Alive Social History Tobacco Use Types Packs/Day Years Used Date Smoking Tobacco: Former Cigarettes 1 30 Smokeless Tobacco: Never Tobacco Cessation:Counseling Given: Not Answered Alcohol Use Standard Drinks/Week Comments Not Currently 0 (1 standard drink = 0.6 oz pur e alcohol) [facility] Utilities Answer Date Recorded In the past 12 months has e [employer], gas, oil, or water [employer] threatened to shut off services in your [...] often do you attend chur ch or mandaen services? Never 09/18/2023 Do you belong to any clubs o r organizations such as yazidism groups, unions, fraternal or athletic groups, or [...] PHQ-2 Answer Date Recorded Total Score 0 12/09/2024 [facility] [place] of Occupat ional Health - Occupational Stress [...] Recorded Do you need help finding a [employer] career center and/or a training program? No 08/15/2022 Hunger Screening Answer Date Recorded Within the past 12 months we worried whether our food would run out before we got money to buy more. Never True 12/09/2024 Within the past 12 months th e food we bought just didn't last and we didn't have money to get more. Never True 12/09/2024 Purpose - Life Answer Date Recorded I have a purpose and direction in my life. Stron gly Agree 08/15/2022 Comments Unknown Sex and Gender Information Value Date Recorded Sex Assigned at Not on file Legal Sex Female 9:44 AM EDT Gender Identity Not on file Sexual Orientation Not on file Last Filed Vital Signs Vital Sign Reading Time Taken Comments Blood Pressure 148/78 12/09/2024 10:33 AM EDT Pulse 86 10/11/2024 12:57 PM EDT Temperature 36.7 C (98.1 F) 10/11/2024 12:57 PM EDT Respiratory Rate 20 10/11/2024 12:57 PM EDT Oxygen Saturation 93% 10/11/2024 12:57 PM EDT Inhaled Oxygen Concentration - - Weight 80.7 kg (178 lb) 12/09/2024 10:33 AM EDT Height 157.5 cm (5' 2 ) 12/09/2024 10:33 AM EDT Body Mass Index 32.56 12/09/2024 10:33 AM EDT Plan of Treatment Upcoming Encounters Date Type Department Care Team (Late st Contact Info) Description 04/13/2025 10:30 AM EST Office Visit [facility] [address] [place] [phone] Varun Veliz, DO [address], [place] [address] 12/13/2025 11:00 AM EDT Office Visit [facility] [address] [place] [id number] Health Maintenance Due Date Last Done Comments DTaP,Tdap and Td Vaccines (1 - Tdap) 1965 Zoster (Shingles) Vaccine (1 of 2) 1996 Influenza Vaccine 01/10/2025 Tobacco Screening 10/11/2025 10/11/2024 Depression Screening 12/09/2025 12/09/2024 Fall Risk Screening 12/09/2025 12/09/2024 Medicare Annual Wellness Visit 12/09/2025 0 12/09/2024, 09/18/2023, 08/15/2022 Medical Devices Not on file Insurance [facility] MEDICARE Care Teams Sewing Room Supervisor Relationship Specialty Start Date End Date Varun Veliz DO [address], [place] [address] PCP - General Family Medicine 01/25/22
--- OUTSIDE RECORDS SUMMARY | 2025-01-25 14:12 | XMS_ITS | Encounter Summary ---
Author Organization [facility] Address [facility] [id number] [address] [place] [address] Care Team Providers Care Powerhouse Tender Name Role Phone Varun Veliz DO Primary Care Provider Reason for Visit * Reason Comments Med Refill Encounter Details Date Type Department Care Team (Late st Contact Info) Description 12/11/2023 Refill [facility] [address] [place] [address] Varun Veliz DO [address], [facility] [place] [address] Essential hypertension; Pedal edema Social History Tobacco Use Types Packs/Day Years Used Date Smoking Tobacco: Former Cigarettes 1 30 Smokeless Tobacco: Never Alcohol Use Standard Drinks/Week Comments Not Currently 0 (1 standard drink = 0.6 oz pur e alcohol) [facility] Utilities Answer Date Recorded In the past 12 months has [employer], gas, oil, or water [employer] threatened to shut off services in your home? No 09/18/2023 Social Connection and Isolat ion Panel [NHANES] Answer Date Recorded In a typical week, how many times do you talk on the phone with family, friends, or neighbors? More than three times a week 09/18/2023 How often do you get togethe r with friends or relatives? Never 09/18/2023 How often do you attend [facility] or zoroastrian services? Never 09/18/2023 Do you belong to any clubs o r organizations such as protestant groups, unions, fraternal or athletic groups, or [...] Answer Date Recorded Total Score 0 12/15/2023 [facility] of Occupat ional Health - Occupational Stress [...] Recorded Do you need help finding a [facility] career center and/or a training [...] Telephone Encounter - Varun Veliz DO - 12/11/2023 2:03 PM EDT Med was D/C'ed documented in this encounter Plan of Treatment Upcoming Encounters Date Type Department Care Team (Late st Contact Info) Description 04/13/2025 10:30 AM EST Office Visit [facility] [address] [place] [address] Varun Veliz DO [address], [facility] [place] [address] 12/13/2025 11:00 AM EDT Office Visit [facility] [address] [place] [address] documented as of this encounter Visit Diagnoses Diagnosis Essential hypertension Unspecified essential hypertension Pedal edema Edema documented in this encounter Additional Health Concerns Assessment Noted Time PHQ-9 Depression Total Score: 0 11/05/19 24 8:31 AM EDT documented as of this encounter Care Teams Powerhouse Tender Relationship Specialty Start Date End Date Varun Veliz DO [address] [place] [address] PCP - General Family Medicine 01/25/22 documented as of this encounter
--- OUTSIDE RECORDS SUMMARY | 2025-01-25 14:12 | XMS_ITS | Encounter Summary ---
Author Organization [facility] Address [facility] [id number] [address] [place] [address] Care Team Providers Care Accounts Administrator Name Role Phone Varun Veliz DO Primary Care Provider Reason for Visit * Reason Comments Med Refill Encounter Details Date Type Department Care Team (Late st Contact Info) Description 12/02/2023 Refill [facility] [address] [place] [address] Varun Veliz DO [address], [facility] [place] [address] Essential hypertension; Pedal edema Social History Tobacco Use Types Packs/Day Years Used Date Smoking Tobacco: Former Cigarettes 1 30 Smokeless Tobacco: Never Alcohol Use Standard Drinks/Week Comments Not Currently 0 (1 standard drink = 0.6 oz pur e alcohol) [facility] Utilities Answer Date Recorded In the past 12 months has [employer], gas, oil, or water [employer] threatened to shut off services in your home? No 09/18/2023 Social Connection and Isolat ion Panel [NHANES] Answer Date Recorded In a typical week, how many times do you talk on the phone with family, friends, or neighbors? More than three times a week 09/18/2023 How often do you get togethe r with friends or relatives? Never 09/18/2023 How often do you attend [facility] or congregational services? Never 09/18/2023 Do you belong to any clubs o r organizations such as mormon groups, unions, fraternal or athletic groups, or [...] PHQ-2 Answer Date Recorded Total Score 0 11/05/2023 [facility] of Occupat ional Health - Occupational Stress [...] Recorded Do you need help finding a [facility] career center and/or a training program? No 08/15/2022 Hunger Screening Answer Date Recorded Within the past 12 months we worried whether our food would run out before we got money to buy more. Never True 11/05/2023 Within the past 12 months th e food we bought just didn't last and we didn't have money to get more. Never True 11/05/2023 Purpose - Life Answer Date Recorded I [...] - Family Medicine [address] [place] [address] Varun Veliz DO [address] [facility] [place] [address] 12/13/2025 11:00 AM EDT Office Visit [facility] [address] [place] [address] documented as of this encounter Visit Diagnoses Diagnosis Essential hypertension Unspecified essential hypertension Pedal edema Edema documented in this encounter Additional Health Concerns Assessment Noted Time PHQ-9 Depression Total Score: 0 11/05/19 24 8:31 AM EDT documented as of this encounter Care Teams Accounts Administrator Relationship Specialty Start Date End Date Varun Veliz DO [address] [facility] [place] [address] PCP - General Family Medicine 01/25/22 documented as of this encounter
--- OUTSIDE RECORDS SUMMARY | 2025-01-25 14:12 | XMS_ITS | Encounter Summary ---
Author Organization [facility] Address [facility] [id number] [address] [place] [address] Care Team Providers Care Hoist Operator Name Role Phone Varun Veliz DO Primary Care Provider [phone] Encounter Details Date Type Department Care Team (Late st Contact Info) Description 04/21/2024 Orders Only [facility] [address] [place] [address] Varun Veliz DO [address], [facility] [place] [address] Social History Tobacco Use Types Packs/Day Years Used Date Smoking Tobacco: Former Cigarettes 1 30 Smokeless Tobacco: Never Alcohol Use Standard Drinks/Week Comments Not Currently 0 (1 standard drink = 0.6 oz pur e alcohol) [facility] Utilities Answer Date Recorded In the past 12 months has [employer], gas, oil, or water [employer] threatened to shut off services in your home? No 09/18/2023 Social Connection and Isolat ion Panel [NHANES] Answer Date Recorded In a typical week, how many times do you talk on the phone with family, friends, or neighbors? More than three times a week 09/18/2023 How often do you get togethe r with friends or relatives? Never 09/18/2023 How often do you attend [facility] or orthodox services? Never 09/18/2023 Do you belong to any clubs o r organizations such as bahai groups, unions, fraternal or athletic groups, or [...] Answer Date Recorded Total Score 0 12/15/2023 [facility] of Occupat ional Health - Occupational Stress [...] - Family Medicine [address] [place] [address] Varun Veliz DO [address] [facility] [place] [address] 12/13/2025 11:00 AM EDT Office Visit [facility] [address] [place] [address] documented as of this encounter Visit Diagnoses Not on filedocumented in this encounter Additional Health Concerns Assessment Noted Time PHQ-9 Depression Total Score: 0 12/15/19 24 2:03 PM EDT documented as of this encounter Care Teams Hoist Operator Relationship Specialty Start Date End Date Varun Veliz DO [address] [place] [address] PCP - General Family Medicine 01/25/22 documented as of this encounter
--- OUTSIDE RECORDS SUMMARY | 2025-01-25 14:12 | XMS_ITS | Encounter Summary ---
Author Organization [facility] Address [id number] [address] [place] [address] Care Team Providers Care Pattern Cutter Name Role Phone Varun Veliz Primary Care Provider [phone] Encounter Details Date Type Department Care Team (Late st Contact Info) Description 10/12/2024 Telephone [facility] [address] [place] [address] Karina Fang CMA Social History Tobacco Use Types Packs/Day Years Used Date Smoking Tobacco: Former Cigarettes 1 30 Smokeless Tobacco: Never Alcohol Use Standard Drinks/Week Comments Not Currently 0 (1 standard drink = 0.6 oz pur e alcohol) [facility] Utilities Answer Date Recorded In the past 12 months has [employer], gas, oil, or water company threatened [...] often do you attend chur ch or sabianist services? Never 09/18/2023 Do you belong to any clubs o r organizations such as pentecostal groups, unions, fraternal or athletic groups, or [...] Answer Date Recorded Total Score 0 10/11/2024 [facility] of Occupat ional Health - [...] Recorded Do you need help finding a [facility] career center and/or a training [...] a purpose and direction in my life. Nereida gly Agree 08/15/2022 Comments Unknown Sex and Gender Information Value Date Recorded Sex Assigned at Not on file Legal Sex Female 9:44 AM EDT Gender Identity Not on file Sexual Orientation Not on file documented as of this encounter Miscellaneous Notes * Telephone Encounter - Karina Fang CMA - 10/12/2024 1:54 PM EDT ----- Message from Varun Veliz DO sent at 10/12/2024 1:24 PM EDT ----- Her vitamin-D level was low at 24.7. She was supposed to be taking vitamin-D 54270 International Unit weekly. Not sure if she was doing that. I will send that in if she has not been taking it. Her PTH is elevated likely due to her chronic kidney disease but her calcium is normal. I would just watch it for now. Her chronic kidney disease is stable at stage IIIA. Her GFR was 57. Did improved from last time. Her uric acid level was normal. The rest of her chronic kidney disease labs were okay. Please call the stepdaughter to so she knows what is going on since she helps her with the medication ----- Message ----- From: Lab, Background User Sent: 10/11/2024 8:16 PM EDT To: Varun Veliz DO * Telephone Encounter - Karina Fang CMA - 10/12/2024 1:54 PM EDT I called Shaunna Rubin step daughter and Caryn read result note to both. They verbally state theyunderstand. Caryn just started on her own Vit D- 2000 units that she had at home. Shaunna states ifyou could please send in a prescription for the 98390 units. Also she was wondering if she should be on a water pill? Because she gets swelling on and off. Or does the Farxiga take care of this? Pharmacy is listed and correct. * Telephone Encounter - Varun Veliz DO - 10/12/2024 1:54 PM EDT I sent in the 34760 unit dose weekly to [facility]. She does not need a water pill. The Farxiga should take care of it * Telephone Encounter - Karina Fang CMA - 10/12/2024 1:54 PM EDT I called and let them know. documented in this encounter Plan of Treatment Upcoming Encounters Date Type Department Care Team (Late st Contact Info) Description 04/13/2025 10:30 AM EST Office Visit [facility] [address] [place] [address] Varun Veliz DO [address] [place] [address] 12/13/2025 11:00 AM EDT Office Visit [facility] [address] [place] [address] documented as of this encounter Visit Diagnoses Not on filedocumented in this encounter Additional Health Concerns Assessment Noted Time PHQ-9 Depression Total Score: 0 10/12/19 25 12:56 PM EDT documented as of this encounter Care Teams Pattern Cutter Relationship Specialty Start Date End Date Varun Veliz DO [address] [place] [address] PCP - General Family Medicine 01/25/22 documented as of this encounter
--- NOTE | 2025-01-25 14:27 | XR_ITS ---
The [address] [address] Patient Name: KENTON EATON MRN: [id number] date: 1945 Sex: F Assigned Patient Location: ER Current Patient Location: ER Accession/Order Number: [id number] Exam Date: 01/25/2025 14:40 Report Date: 01/25/2025 15:07 At the request of: JAMAR COURTNEY Procedure: XR chest 1V XR chest 1V 01/25/2025 2:46 PM SIGNS AND SYMPTOMS: ^SOB PROTOCOL: Frontal radiograph of the chest COMPARISON: 04/18/2024 FINDINGS: The trachea is midline. Atherosclerotic changes are present in the thoracic aorta. The heart and mediastinal structures are within normal limits. Hazy airspace opacities are present in the basal to apical gradient with perihilar vascular prominence suspicious for congestive heart failure and pulmonary edema. The bony thorax is intact. XR/XR chest 1V IMPRESSION: Hazy airspace opacities are present in the basal to apical gradient with perihilar vascular prominence suspicious for congestive heart failure and pulmonary edema. Impression dictated by: Boni Silva M.D. 01/25/2025 3:07 PM Dictation Location: [place] [address] Electronically authenticated by: [id number] Y Date: 01/25/2025 15:07
[2025-01-25] MEDS: METHYLPREDNISOLONE SOD SUCC PF 125 MG/2 ML VIAL IVP (14:44)
--- NOTE | 2025-01-25 14:45 | ED.GENADUL1 ---
HPI HPI - General Adult General Chief complaint: Extremity Problem, Nontraumatic Stated complaint: LOWER EXTREMITY PAIN Time Seen by Provider: 01/25/25 13:55 Source: patient Mode of arrival: Wheelchair Limitations: no limitations History of Present Illness HPI narrative: Patient is a 79-year-old female with past medical history of diabetes type 2, CKD type III, and HLD that presents to the emergency department with her stepdaughter with complaints of not feeling well , shortness of breath, and increased leg swelling and pain. Patient lives with her son but her stepdaughter checks on her daily. She decided to bring her to the hospital today as she has not been getting around well secondary to her legs. She denies any cough, congestion, fever, trauma, blood thinner use, chest pain, or abdominal pain. Patient stepdaughter does provide some of the history as patient is hard of hearing and also has had question of early onset dementia noted in her last admission in April 2024. Related Data Home Medications ?Medication ?Instructions ?Recorded ?Confirmed allopurinol 100 mg tablet 100 mg PO .QD 04/15/24 01/25/25 atorvastatin 10 mg tablet 10 mg PO .QHS 04/15/24 01/25/25 dapagliflozin propanediol 10 mg 10 mg PO .QD 04/15/24 01/25/25 tablet (Farxiga) cholecalciferol (vitamin D3) 1,250 1,250 mcg PO QWEEK 01/25/25 01/25/25 mcg (50,000 unit) capsule Allergies Allergy/AdvReac Type Severity Reaction Status Date / Time aspirin Allergy Mild Abdominal Verified 01/25/25 14:03 Pain Opioid HPI Opioid Management Most Recent Opioid Data: Last Pain Scale 0 04/17/24, 11:27 Last Pain Intensity 0 04/17/24, 11:27 Last Pain Assessment 01/25/25, 21:00 Last ORT Total Score 0 01/25/25, 20:27 Last ORT Risk Category Low Risk 01/25/25, 20:27 Review of Systems ROS Status of ROS 10 or more systems reviewed and unremarkable except as noted in history and below [facility] Medical History (Updated 01/25/25 @ 18:08 by Belkys Sahu MD) Bilateral pneumonia ?J18.9 - Pneumonia, unspecified organism (ICD-10) UTI (urinary tract infection) ?N39.0 - Urinary tract infection, site not specified (ICD-10) Hypoxia ?R09.02 - Hypoxemia (ICD-10) Acute UTI ?N39.0 - Urinary tract infection, site not specified (ICD-10) Closed fracture of greater trochanter of left femur ?S72.112A - Displaced fracture of greater trochanter of left femur, initial encounter for closed fracture (ICD-10) HLD (hyperlipidemia) ?E78.5 - Hyperlipidemia, unspecified (ICD-10) COPD with emphysema ?J43.9 - Emphysema, unspecified (ICD-10) Family History (Updated 04/15/24 @ 22:49 by Nat Pitts) Other Family history not known due to adoption Family history of cancer Social History (Updated 01/25/25 @ 21:18 by Ly Duckworth) Within the past year, how often did you have a drink containing alcohol: never Score interpretation: A score less than 3 is consistent with normal alcohol consumption. Smoking status: Former smoker Non-prescribed substance use: denies use Highest level of school completed/degree received: 8th grade Are you now , , , , never or living with a partner: don't know Little interest or pleasure in doing things: not at all Feeling down, depressed, or hopeless: not at all Feel stressed/tense/nervous/anxious/difficulty sleeping: not at all Do you think of yourself as: decline to answer Exam Narrative Exam Narrative: General: No distress, age-appropriate Skin: Warm, dry, no pallor. No rash. Head: Normocephalic, atraumatic. Neck: Supple, non-tender. Eye: Pupils are equal, round and EOMI. No scleral icterus. Ears, Nose, Mouth, and Throat: No nasal mucosal hypertrophy. Oral mucosa is moist, no posterior oropharynx erythema, uvula is mid-line Cardiovascular: Regular Rate and Rhythm without murmur, gallop or rub. Bilateral 3+ pitting edema lower extremities. Respiratory: No accessory muscle use, moderate respiratory distress Lungs with decreased breath sounds bilaterally, crackles at the posterior bases bilaterally. Chest Wall: no tenderness Back: No midline thoracic or lumbar vertebral tenderness. Musculoskeletal: Full ROM of all extremities, no calf or popliteal tenderness GI: Abdomen is soft, non-distended, non tender to palpation. No masses appreciated. No rebound, guarding, or rigidity noted. Neurological: A&O x 3, self, place, president, not correct month. No cranial nerve dysfunction observed except hard of hearing. No truncal ataxia. Moves all extremities. Sensation intact. Psychiatric: Cooperative and interactive. Normal mood and affect. Constitutional Vital Signs, click to edit/add: Last Vital Signs Temp 97.8 F 01/26/25 08:00 Pulse 80 01/26/25 09:59 Resp 16 01/26/25 09:44 BP 123/70 01/26/25 04:00 Pulse Ox 96 01/26/25 09:59 O2 Del Method Nasal Cannula 01/26/25 09:45 O2 Flow Rate 6 01/26/25 09:45 FiO2 60 01/26/25 05:05 Course Vital Signs Vital signs: Vital Signs Temperature 98.8 F 01/25/25 13:53 Pulse Rate 85 01/25/25 13:53 Respiratory Rate 16 01/25/25 13:53 Blood Pressure 158/75 H 01/25/25 13:53 Pulse Oximetry 75 L 01/25/25 13:53 Oxygen Delivery Method Room Air 01/25/25 13:53 Temperature 97.8 F 01/26/25 08:00 Pulse Rate 80 01/26/25 09:59 Respiratory Rate 16 01/26/25 09:44 Blood Pressure 123/70 01/26/25 04:00 Pulse Oximetry 96 01/26/25 09:59 Oxygen Delivery Method Nasal Cannula 01/26/25 09:45 Oxygen Delivery Flow Rate 6 01/26/25 09:45 Fraction of Inspired Oxygen 60 01/26/25 05:05 Medical Decision Making [facility] Narrative Medical decision making narrative: This 79 yr old female presented to the emergency department with her stepdaughter, who provides most of the history secondary to hearing loss and cognitive impairments, with complaints of bilteral leg swelling, SOB, and not feeling well' for about 4 days. Patient has a PMH of DM, CKD Type III, and HLD. She was very hypoxic on during her admission last April requiring up to 6L O2. [facility] on oxygen but the stepdaughter states that the equipment was returned and she hadn't had an issue with her oxygenation until now. On arrival patient's O2 SAT on RA is in the mid 70's. Initial pulse ox monitor did not work on fingers, intermittently would get a good waveform with the pulse ox on her ear. Nasal cannula applied 5-6L in high 80s/low 90's. Patient reports SOB but does not appear to be in respiratory distress, no tripoding, no accessory muscle use, no work of breathing. There is 3+ pitting edema to bilateral lower extremities.EKG, Chest Xray and labs ordered, CBC, CMP, Trop, BNP. CXR with hazy airspace opacities are present in the basal to apical gradient with perihilar vascular prominence suspicious for congestive heart failure and pulmonary edema. COVID-19 negative. Initial 2 EKG with artifact, third EKG with NSR, no ST elevation, Trop neg. Pulse ox continued to drop on 6L into the 70's, patient frequently re-examined and still clinically in no respiratory distress. ABG ordered and pH 7.3, CO2 65, PO2 52 BNP 11,043, Cr 1.47, baseline appears to be 1.3 CPAP was ordered but we then decided on BiPap. Patient also given 40mg Lasix IV. Avina placed for accurate I/Os. O2 SAT in low 90's on Bipap with good wave form. BP remained stable after Lasix given. I frequently re-evaluated patient and updated patient and her stepdaughter about labs and test findings. I discussed admission with them and they agree with plan. Discussed case with Dr Sahu for admission, ABG drawn after he accepted. He was present in the department when results came in and I updated him in person and that we were starting BiPap. Patient's O2 SAT in low 90's on BiPAP. Patient's BP stable during ED course but hypertensive. Patient was admitted to step down bed for Acute Decompensated Heart failure with acute hypercapnic and hypoxemic respiratory failure secondary to pulmonary edema that will require further diuresis, respiratory support, and monitoring of fluid status, renal function, and electrolytes. Differential Diagnosis Differential Diagnosis: CHF, COVID-19, PNA, Lab Data Lab results reviewed: Yes I reviewed the patient's lab results Labs: Lab Results 01/25/25 01/25/25 01/25/25 Range/Units 14:35 14:50 16:28 WBC 5.9 (4.0-11.0) 10^3/uL RBC 4.90 (4.20-5.40) 10^6/uL Hgb 15.1 (12.0-16.0) g/dL Hct 51.2 H (36.0-48.0) % MCV 104.5 H (81.0-99.0) fL MCH 30.8 (26.7-34.0) pg MCHC 29.5 L (29.9-35.2) g/dL RDW 16.2 H (11.0-15.0) % Plt Count 152 (150-450) 10^3/uL MPV 10.3 (9.5-13.5) fL Neut % (Auto) 57.4 (43.0-75.0) % Lymph % (Auto) 24.3 (20.5-60.0) % Randolph % (Auto) 12.1 H (1.7-12.0) % Eos % (Auto) 3.4 (0.9-7.0) % Baso % (Auto) 1.9 (0.2-2.0) % Neut # (Auto) 3.4 (1.4-6.5) 10^3/uL Lymph # (Auto) 1.4 (1.2-3.8) 10^3/uL Randolph # (Auto) 0.7 (0.3-0.8) 10^3/uL Eos # (Auto) 0.2 (0.0-0.7) 10^3/uL Baso # (Auto) 0.1 (0.0-0.1) 10^3/uL Abs Immat Gran (auto) 0.05 H (0.00-0.03) 10^3/uL Imm/Tot Granulo (auto) 0.9 H (0.0-0.5) % Puncture Site ABG pH (7.350-7.450) ABG pCO2 (35.0-45.0) mmHg ABG pO2 (80.0-100.0) mmHg ABG HCO3 (22.0-26.0) mmol/L ABG O2 Saturation % ABG Base Excess (-2.0-2.0) mmol/L Julio Test (POSITIVE) O2 Liters/Min FiO2 % Sodium 144 (136-145) mmol/L Potassium 5.0 (3.5-5.1) mmol/L Chloride 106 (98-107) mmol/L Carbon Dioxide 34.7 H (21.0-32.0) mmol/L Anion Gap 8.3 BUN 28.0 H (7.0-18.0) mg/dL Creatinine 1.60 H (0.55-1.02) mg/dL Est GFR ( Amer) 38 L (>=60 mL/min/1.73m^2) Est GFR (Non-Af Amer) 31 L (>=60 mL/min/1.73m^2) BUN/Creatinine Ratio 17.5 Glucose 112 H (74-106) mg/dL Calcium 8.6 (8.5-10.1) mg/dL Total Bilirubin 0.4 (0.2-1.0) mg/dL AST 23 (15-37) U/L ALT 19 (14-59) U/L Alkaline Phosphatase 86 (46-116) U/L Troponin I High Sens 26.4 (4.0-51.3) pg/mL NT-Pro-B Natriuret Pep 12239.0 H* (<=1800.0) pg/mL Total Protein 7.3 (6.4-8.2) g/dL Albumin 3.2 L (3.4-5.0) g/dL Globulin 4.1 g/dL Albumin/Globulin Ratio 0.8 Urine Color Yellow (YELLOW) Urine Clarity Clear (CLEAR) Urine pH 6.0 (5.0-9.0) Ur Specific [place]hall 1.025 (1.005-1.025) Urine Protein 100 A (NEG/TRACE) mg/dL Urine Glucose (UA) >=1000 A (NEGATIVE) mg/dL Urine Ketones Negative (NEGATIVE) mg/dL Urine Occult Blood Negative (NEGATIVE) Urine Nitrite Negative (NEGATIVE) Urine Bilirubin Negative (NEGATIVE) Urine Urobilinogen 0.2 (0.2-1.0) EU/dL Ur Leukocyte Esterase Negative (NEGATIVE) Urine RBC None seen (0-2) #/HPF Urine WBC 0-2 A (NONE SEEN) #/HPF Ur Squamous Epith Cells Rare (NONE/RARE) #/LPF Ur Transition Epith Cell Few A (NONE SEEN) #/LPF Urine Crystals None seen (None Seen) #/HPF Urine Bacteria Trace A (NONE SEEN) #/HPF Urine Casts Seen A (NONE SEEN) #/LPF Hyaline Casts Rare Urine Mucus Small A (NONE SEEN) Ur Culture Indicated? No SARS-CoV-2 Ag (CV2AG) Negative (NEGATIVE) 01/25/25 Range/Units 17:00 WBC (4.0-11.0) 10^3/uL RBC (4.20-5.40) 10^6/uL Hgb (12.0-16.0) g/dL Hct (36.0-48.0) % MCV (81.0-99.0) fL MCH (26.7-34.0) pg MCHC (29.9-35.2) g/dL RDW (11.0-15.0) % Plt Count (150-450) 10^3/uL MPV (9.5-13.5) fL Neut % (Auto) (43.0-75.0) % Lymph % (Auto) (20.5-60.0) % Randolph % (Auto) (1.7-12.0) % Eos % (Auto) (0.9-7.0) % Baso % (Auto) (0.2-2.0) % Neut # (Auto) (1.4-6.5) 10^3/uL Lymph # (Auto) (1.2-3.8) 10^3/uL Randolph # (Auto) (0.3-0.8) 10^3/uL Eos # (Auto) (0.0-0.7) 10^3/uL Baso # (Auto) (0.0-0.1) 10^3/uL Abs Immat Gran (auto) (0.00-0.03) 10^3/uL Imm/Tot Granulo (auto) (0.0-0.5) % Puncture Site Lr ABG pH 7.300 L (7.350-7.450) ABG pCO2 65.2 H* (35.0-45.0) mmHg ABG pO2 52.1 L* (80.0-100.0) mmHg ABG HCO3 32.0 H (22.0-26.0) mmol/L ABG O2 Saturation 84.9 % ABG Base Excess 5.6 H (-2.0-2.0) mmol/L Julio Test Positive (POSITIVE) O2 Liters/Min 5 FiO2 78 % Sodium (136-145) mmol/L Potassium (3.5-5.1) mmol/L Chloride (98-107) mmol/L Carbon Dioxide (21.0-32.0) mmol/L Anion Gap BUN (7.0-18.0) mg/dL Creatinine (0.55-1.02) mg/dL Est GFR ( Amer) (>=60 mL/min/1.73m^2) Est GFR (Non-Af Amer) (>=60 mL/min/1.73m^2) BUN/Creatinine Ratio Glucose (74-106) mg/dL Calcium (8.5-10.1) mg/dL Total Bilirubin (0.2-1.0) mg/dL AST (15-37) U/L ALT (14-59) U/L Alkaline Phosphatase (46-116) U/L Troponin I High Sens (4.0-51.3) pg/mL NT-Pro-B Natriuret Pep (<=1800.0) pg/mL Total Protein (6.4-8.2) g/dL Albumin (3.4-5.0) g/dL Globulin g/dL Albumin/Globulin Ratio Urine Color (YELLOW) Urine Clarity (CLEAR) Urine pH (5.0-9.0) Ur Specific [place]hall (1.005-1.025) Urine Protein (NEG/TRACE) mg/dL Urine Glucose (UA) (NEGATIVE) mg/dL Urine Ketones (NEGATIVE) mg/dL Urine Occult Blood (NEGATIVE) Urine Nitrite (NEGATIVE) Urine Bilirubin (NEGATIVE) Urine Urobilinogen (0.2-1.0) EU/dL Ur Leukocyte Esterase (NEGATIVE) Urine RBC (0-2) #/HPF Urine WBC (NONE SEEN) #/HPF Ur Squamous Epith Cells (NONE/RARE) #/LPF Ur Transition Epith Cell (NONE SEEN) #/LPF Urine Crystals (None Seen) #/HPF Urine Bacteria (NONE SEEN) #/HPF Urine Casts (NONE SEEN) #/LPF Hyaline Casts Urine Mucus (NONE SEEN) Ur Culture Indicated? SARS-CoV-2 Ag (CV2AG) (NEGATIVE) Imaging Data Chest x-ray: Attestation: I have reviewed the pertinent imaging results. Radiologist's impression: ITS Impressions Chest X-Ray 01/25/25 14:27 IMPRESSION: Hazy airspace opacities are present in the basal to apical gradient with perihilar vascular prominence suspicious for congestive heart failure and pulmonary edema. Impression dictated by: Boni Silva M.D. 01/25/2025 3:07 PM Dictation Location: [place] [id number] Electronically authenticated by: [id number] Y Date: 01/25/2025 15:07 ECG Data Attestation: ?I have reviewed the pertinent ECG results. Critical Care Time Critical Care Time Critical Care Time: Yes Total Critical Care Time: 30 Attestation: I personally provided critical care services for this 79 yr old female with acute decompensated heart failure complicated by hypercapnic and hypoxemic respiratory failure, for a total time of 30 minutes. This time was devoted to the direct care of the patient who required initiation of BiPAP and IV diuresis with continuous bedside evaluation and respiratory monitoring, interpretation of labs and tests, disposition decision-making and coordination with admitting hospitalist team. Discharge Plan Discharge Chief Complaint: Extremity Problem, Nontraumatic Clinical Impression: Pulmonary edema with congestive heart failure Patient Disposition: Admitted As Inpatient Time of Disposition Decision: 16:38 Condition: Fair Discharge Date/Time: 01/25/25 20:00
[2025-01-25 14:46] LABS: Hematocrit 51.2 % (36.0-48.0); Hemoglobin 15.1 g/dL (12.0-16.0); Immature Granulocytes Abs Auto 0.05 10^3/uL (0.00-0.03); Immature Granulocytes Pct Auto 0.9 % (0.0-0.5); Lymphocytes Absolute Auto 1.4 10^3/uL (1.2-3.8); Mean Corpuscular HGB Conc 29.5 g/dL (29.9-35.2); Mean Corpuscular Hemoglobin 30.8 pg (26.7-34.0); Mean Corpuscular Volume 104.5 fL (81.0-99.0); Platelet Count 152 10^3/uL (150-450); Red Blood Count 4.90 10^6/uL (4.20-5.40); White Blood Count 5.9 10^3/uL (4.0-11.0)
--- OUTSIDE RECORDS SUMMARY | 2025-01-25 14:47 | XMS_ITS | CCD ---
Author Organization [facility] Inform ion Partnership [facility] Care Team Providers Care 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 Name Role Phone JOSE ALFREDO, DR VARUN Comer Attending Unavailable FURLONG, DR VARUN Comer Admitting Unavailable STEPHANIE, RUGEN Primary Care Unavailable FURLONG, VARUN Comer Referring Unavailable FURLONG, VARUN Comer Primary Care Unavailable FURLONG, VARUN Comer Referring Unavailable FURLONG, VARUN Comer Primary Care Unavailable Furlong DOVarun Primary Care Provider Furlong Varun SOTELO Primary Care Provider MARIA LUZNG, VARUN Comer Attending Unavailable FURLONG, VARUN Comer Referring Unavailable FURLONG, VARUN Comer Primary Care Unavailable FURLONG, VARUN Comer Attending Unavailable FURLONG, VARUN Comer Referring Unavailable FURLONG, VARUN Comer Primary Care Unavailable FURLONG, VARUN Comer Referring Unavailable FURLONG, VARUN Comer Primary Care Unavailable Allergies Allergy Classification Reported Allergen(s) Allergy Type Date of Onset Reaction(s) Facility (1 source) Aspirin Drug Allergy [facility] (12 sources) Aspirin; Translations: [ASPIRIN] Drug Allergy [facility] Medications Current Medications Medication Drug Class(es) Dates Sig (Normalized) Sig (Original) acetaminophen 500 mg oral tablet (2 sources) take 1 tablet by mouth every six hours as needed for pain acetaminophen (TYLENOL EXTRA STRENGTH) 500 mg tablet Take 1 tablet (500 mg total) by mouth every 6 (six) hours as needed for pain. Active allopurinol 100 mg oral tablet (11 sources) Xanthine Oxidase Inhibitor Start: 03-23-20 24 End: 10-08-19 25 take 1 tablet by mouth in the morning allopurinoL (ZYLOPRIM) 100 mg tablet Indications: Chronic gout without tophus, unspecified cause, unspecified site TAKE 1 TABLET BY MOUTH IN THE MORNING 30 tablet 5 10/07/2024 Active atorvastatin 10 mg oral tablet (11 sources) HMG-CoA Reductase Inhibitor Start: 11-19-19 24 End: 12-01-19 25 take 1 tablet by mouth once daily atorvastatin (LIPITOR) 10 mg tablet Indications: Hyperlipidemia, unspecified TAKE 1 TABLET BY MOUTH DAILY 90 tablet 3 11/30/2024 Active cholecalciferol 1.25 mg oral capsule (11 sources) Vitamin D Start: 11-07-19 24 End: 10-14-19 25 take 1 capsule by mouth every week cholecalciferol (VITAMIN D3) 50,000 units capsule Take 1 capsule (50,000 Units total) by mouth once a week. 4 capsule 11 10/13/2024 Active dapagliflozin 10 mg oral tablet (11 sources) Sodium-Glucose Cotransporter 2 Inhibitor Start: 04-22-20 24 End: 11-16-19 25 take 1 tablet by mouth once daily in the morning FARXIGA 10 mg tablet TAKE 1 TABLET BY MOUTH ONCE DAILY IN THE MORNING 30 tablet 5 11/15/2024 Active famotidine 10 mg oral tablet (6 sources) Histamine-2 Receptor Antagonist Start: 10-12-19 25 take 1 tablet by mouth in the morning, then take 1 tablet by mouth at bedtime famotidine (PEPCID AC) 10 mg tablet Take 1 tablet (10 mg total) by mouth in the morning and 1 tablet (10 mg total) before bedtime. 10/11/2024 Active hydroCHLOROthiazide 12.5 mg oral capsule (10 sources) Thiazide Diuretic Start: 11-12-19 24 hydroCHLOROthiazide (MICROZIDE) 12.5 mg capsule Take 1 capsule (12.5 mg total) by mouth. 11/12/2023 Active loratadine 10 mg oral tablet (10 sources) Start: 08-24-19 23 take 1 tablet by mouth in the morning loratadine (CLARITIN) 10 mg tablet Indications: Allergic rhinitis, unspecified seasonality, unspecified trigger Take 1 tablet (10 mg total) by mouth in the morning. 30 tablet 08/23/2022 Active zogehlpv-lks-YN-lycopen -lutein (COMPLETE MV ADULT 50 PLUS) 0.4 mg-300 mcg- 250 mcg tablet (10 sources) take 1 tablet by mouth once in the evening wgkinjeo-aoj-JD-lycope n-lutein (COMPLETE MV ADULT 50 PLUS) 0.4 mg-300 mcg- 250 mcg tablet Take 1 tablet by mouth in the evening. Active predniSONE 20 mg oral tablet (2 sources) Start: 10-12-19 End: 10-17-19 take 1 tablet by mouth in the morning, then take 1 tablet by mouth at bedtime predniSONE (DELTASONE) 20 mg tablet Take 1 tablet (20 mg total) by mouth in the morning and 1 tablet (20 mg total) before bedtime. Do all this for 5 days. 10 tablet 10/11/2024 10/16/2024 Active triamcinolone acetonide 1 mg/ml topical cream (10 sources) Corticosteroid Start: 05-22-19 triamcinolone (KENALOG) 0.1 % cream APPLY 1 application TO THE AFFECTED AREA(S) TWICE DAILY (IN THE MORNING & AT BEDTIME) topically 30 g 05/22/2023 Active Completed/Discontinued Medications Medication Drug Class(es) Dates Sig (Normalized) Sig (Original) albuterol 0.833 mg/ml / ipratropium bromide 0.167 mg/ml inhalation solution (4 sources) Anticholinergic, beta2-Adrenergic Agonist Start: 04-30-2024 End: 10-11-2024 take 3 mL by inhalation three times daily ipratropium-albuter oL (DUONEB) 0.5 mg-3 mg(2.5 mg base)/3 mL nebulizer Indications: Chronic obstructive pulmonary disease, unspecified COPD type ([facility]) Inhale 3 mL by nebulization 3 (three) times a day. 270 mL 2 04/30/2024 10/11/2024 Discontinued (Therapy completed) baclofen 5 mg oral tablet (5 sources) gamma-Aminobutyr ic Acid-ergic Agonist Start: 11-06-2023 End: 10-11-2024 take 1 tablet by mouth three times daily as needed for pain baclofen 5 mg tablet Indications: Other specified disorders of bone, other site Take 1 tablet by mouth 3 (three) times a day as needed (pain). 180 tablet 10 11/06/2023 10/11/2024 Discontinued (Therapy completed) Problems Active Problems Problem Classification Problem Date Documented Da te Episodic/Chronic Chronic kidney disease (2 sources) Chronic kidney disease; Translations: [Chronic kidney disease, stage 3a] Onset: 08-01-2022 Chronic obstructive pulmonary disease and bronchiectasis (16 sources) Chronic obstructive lung disease; Translations: [Chronic obstructive pulmonary disease, unspecified] Onset: 04-27-2024 04-30-2024 Chronic Disorders of lipid metabolism (15 sources) Hyperlipidemia, unspecified; Translations: [Hyperlipidemia] Onset: 08-01-2022 08-23-2022 Chronic Essential hypertension (15 sources) Essential (primary) hypertension; Translations: [Essential hypertension] Onset: 06-29-2019 04-30-2024 Chronic Gout and other crystal arthropathies (1 source) Chronic gout without tophus; Translations: [Chronic gout, unspecified, without tophus (tophi)] 10-07-2024 Chronic Hypertension with complications and secondary hypertension (14 sources) Hypertensive chronic kidney disease with stage 1 through stage 4 chronic kidney disease, or unspecified chronic kidney disease; Translations: [Hypertensive renal disease] Onset: 08-01-2022 12-15-2023 Chronic Other connective tissue disease (1 source) Pain in right hand; Translations: [Pain in right hand] 10-11-2024 Episodic Other connective tissue disease (1 source) Pain in right hand; Translations: [Pain in right hand] Onset: 10-11-2024 Episodic Other ear and sense organ disorders (1 source) Bilateral hearing loss; Translations: [Unspecified hearing loss, bilateral] 10-11-2024 Chronic Other ear and sense organ disorders (1 source) Unspecified hearing loss, bilateral; Translations: [Unspecified hearing loss, bilateral] Onset: 10-11-2024 Chronic Other nervous system disorders (1 source) Other chronic pain; Translations: [Other chronic pain] Onset: 12-15-2023 Chronic Other nutritional; endocrine; and metabolic disorders (10 sources) Obesity; Translations: [Obesity, unspecified] Onset: 10-02-2020 08-23-2022 Chronic Other nutritional; endocrine; and metabolic disorders (1 source) Obesity caused by energy imbalance; Translations: [Class 1 obesity due to excess calories with serious comorbidity and body mass index (BMI) of 30.0 to 30.9 in adult] 05-06-2024 Chronic Other nutritional; endocrine; and metabolic disorders (1 source) Other obesity due to excess calories; Translations: [Other obesity due to excess calories] Onset: 08-23-2022 Chronic Other nutritional; endocrine; and metabolic disorders (1 source) Body mass index (BMI) 30.0-30.9, adult; Translations: [Body mass index (BMI) 30.0-30.9, adult] Onset: 08-23-2022 Chronic Screening and history of mental health and substance abuse codes (1 source) Patient encounter status; Translations: [Encounter for screening for depression] 12-09-2024 Episodic Unclassified (1 source) maw Onset: 12-09-2024 Unclassified (1 source) Low back pain, unspecified; Translations: [Low back pain, unspecified] Onset: 12-15-2023 Past or Other Problems Problem Classification Problem Date Documented Da te Episodic/Chronic Fluid and electrolyte disorders (12 sources) Hyperkalemia; Translations: [Hyperkalemia] Onset: 12-15-2023 12-15-2023 Episodic Fracture of neck of femur (hip) (11 sources) Closed fracture of femur, greater trochanter; Translations: [Nondisplaced fracture of greater trochanter of left femur, subsequent encounter for closed fracture with routine healing] Onset: 04-27-2024 04-30-2024 Episodic Mood disorders (10 sources) Mood disorders Onset: 12-15-2023 Resolved: 12-09-2024 12-15-2023 Pneumonia (except that caused by tuberculosis or sexually transmitted disease) (11 sources) Pneumonia; Translations: [Pneumonia, unspecified organism] Onset: 04-27-2024 04-27-2024 Episodic Respiratory failure; insufficiency; arrest (adult) (12 sources) Acute respiratory failure; Translations: [Acute respiratory failure with hypoxia] Onset: 04-27-2024 Resolved: 10-11-2024 04-30-2024 Episodic Spondylosis; intervertebral disc disorders; other back problems (11 sources) Chronic low back pain; Translations: [Chronic bilateral low back pain without sciatica] Onset: 12-15-2023 12-15-2023 Episodic Urinary tract infections (10 sources) Acute cystitis; Translations: [Acute cystitis without hematuria] Onset: 04-27-2024 04-27-2024 Episodic Results Test Name Value Interpretation Reference Range Facil ity CBC (NO DIFF)on 10-11-2024 Erythrocyte distribution width (RBC) [Ratio] 14.9 % Normal 11.5-15 [facility] Comment on above: Performed By: #### C BC #### [facility] ([facility]) [address] [place] [address] VIR Hematocrit (Bld) [Volume fraction] 42.0 % Normal 35-47 [facility] Comment on above: Performed By: #### C BC #### [facility] ([facility]) [address] [place] [address] VIR Hemoglobin (Bld) [Mass/Vol] 13.5 g/dL Normal 11.7-15.5 [facility] Comment on above: Performed By: #### C BC #### [facility] ([facility]) [address] [place] [address] VIR MCH (RBC) [Entitic mass] 32.1 pg Normal 27-34 [facility] Comment on above: Performed By: #### C BC #### [facility] ([facility]) [address] [place] [address] VIR MCHC (RBC) [Mass/Vol] 32.2 g/dL Normal 32-36 [facility] Comment on above: Performed By: #### C BC #### [facility] ([facility]) [address] [place] [address] VIR MCV (RBC) [Entitic vol] 100 fL Normal 80-100 [facility] Comment on above: Performed By: #### C BC #### [facility] ([facility]) [address] [place] [address] VIR Platelet mean volume (Bld) [Entitic vol] 7.8 fL Normal 7-12 [facility] Comment on above: Performed By: #### C BC #### [facility] ([facility]) [address] [place] [address] VIR Platelets (Bld) [#/Vol] 201 10*3/uL Normal 150-450 [facility] Comment on above: Performed By: #### C BC #### [facility] ([facility]) [address] [place] [address] VIR RBC COUNT 4.22 X10E12/L Normal 3.8-5.2 [facility] Comment on above: Performed By: #### C BC #### [facility] ([facility]) [address] [place] [address] VIR WBC (Bld) [#/Vol] 6.5 10*3/uL Normal 4-11 [facility] Comment on above: Performed By: #### C BC #### [facility] ([facility]) [address] [place] [address] VIR CBC without diffon Erythrocyte distribution width (RBC) [Ratio] 14.9 % 11.5 - 15 % [facility] Hematocrit (Bld) [Volume fraction] 42 % 35 - 47 % [facility] Hemoglobin (Bld) [Mass/Vol] 13.5 g/dL 11.7 - 15.5 g/dL [facility] Interpretation and review of laboratory results Normal [facility] MCH (RBC) [Entitic mass] 32.1 pg 27 - 34 pg [facility] MCHC (RBC) [Mass/Vol] 32.2 g/dL 32 - 36 g/dL [facility] MCV (RBC) [Entitic vol] 100 fL 80 - 100 fL [facility] Platelet mean volume (Bld) [Entitic vol] 7.8 fL 7 - 12 fL [facility] Platelets (Bld) [#/Vol] 201 10*3/uL [facility] RBC (Bld) [#/Vol] 4.22 10*6/uL [facility] WBC LM Ql (Sput) 6.5 [facility] COMPREHENSIVE METABOLIC PANE Refugio 10-11-2024 Albumin [Mass/Vol] 3.8 g/dL Normal 3.2-5.3 [facility] Comment on above: Performed By: #### C MP #### [facility] ([facility]) [address] [place] [address] VIR ALP [Catalytic activity/Vol] 85 U/L Normal 39-130 [facility] Comment on above: Performed By: #### C MP #### [facility] ([facility]) [address] [place] [address] VIR ALT [Catalytic activity/Vol] 12 U/L Normal <=31 [facility] Comment on above: Performed By: #### C MP #### [facility] ([facility]) [address] [place] [address] VIR Anion gap [Moles/Vol] 6 mmol/L Normal 5-15 [facility] Comment on above: Performed By: #### C MP #### [facility] ([facility]) [address] [place] [address] VIR AST [Catalytic activity/Vol] 16 U/L Normal <=41 [facility] Comment on above: Performed By: #### C MP #### [facility] ([facility]) [address] [place] [address] VIR Bilirubin [Mass/Vol] 0.3 mg/dL Normal 0.3-1.2 [facility] Comment on above: Performed By: #### C MP #### [facility] ([facility]) [address] [place] [address] VIR Calcium [Mass/Vol] 8.8 mg/dL Normal 8.5-10.5 [facility] Comment on above: Performed By: #### C MP #### [facility] ([facility]) [address] [place] [address] VIR Chloride [Moles/Vol] 101 mmol/L Normal 98-109 [facility] Comment on above: Performed By: #### C MP #### [facility] ([facility]) [address] [place] [address] VIR CO2 [Moles/Vol] 34 mmol/L High 22-32 [facility] Comment on above: Performed By: #### C MP #### [facility] ([facility]) [address] [place] [address] VIR Creatinine [Mass/Vol] 1.01 mg/dL High 0.40-1.00 [facility] Comment on above: Result Comment: METH OD TRACEABLE TO IDMS STANDARD Performed By: #### C MP #### [facility] ([facility]) [address] [place] [address] VIR GFR/1.73 sq M.predicted among non-blacks MDRD (S/P/Bld) [Vol rate/Area] 57 mL/min/{1.73_m2} Low >=60 [facility] Comment on above: Result Comment: Repo rted eGFR is based on the CKD-EPI 2020 equation that does not use a race coefficient. Performed By: #### C MP #### [facility] ([facility]) [address] [place] [address] VIR Glucose [Mass/Vol] 119 mg/dL High 65-99 [facility] Comment on above: Performed By: #### C MP #### [facility] ([facility]) [address] [place] [address] VIR Potassium [Moles/Vol] 4.4 mmol/L Normal 3.5-5.0 [facility] Comment on above: Performed By: #### C MP #### [facility] ([facility]) [address] [place] [address] VIR Protein [Mass/Vol] 7.2 g/dL Normal 6.0-8.0 [facility] Comment on above: Performed By: #### C MP #### [facility] ([facility]) [address] [place] [address] VIR Sodium [Moles/Vol] 141 mmol/L Normal 134-146 [facility] Comment on above: Performed By: #### C MP #### [facility] ([facility]) [address] [place] [address] VIR Urea nitrogen [Mass/Vol] 18 mg/dL Normal 5-27 [facility] Comment on above: Performed By: #### C MP #### [facility] ([facility]) [address] [place] [address] VIR Comprehensive metabolic pane refugio 10-11-2024 Albumin [Mass/Vol] 3.8 g/dL 3.2 - 5.3 g/dL Pr [facility] ALP [Catalytic activity/Vol] 85 U/L 39 - 130 U/L [facility] ALT No additional P-5'-P [Catalytic activity/Vol] 12 U/L NINF - 31 U/L [facility] Anion gap [Moles/Vol] 6 mmol/L 5 - 15 mmol/L [facility] AST [Catalytic activity/Vol] 16 U/L NINF - 41 U/L [facility] Bilirubin [Mass/Vol] 0.3 mg/dL 0.3 - 1.2 mg/dL [facility] Calcium [Mass/Vol] 8.8 mg/dL 8.5 - 10. 5 mg/dL [facility] Chloride [Moles/Vol] 101 mmol/L 98 - 109 mmol/L [facility] CO2 [Moles/Vol] 34 mmol/L High 22 - 32 mmol/L [facility] Creatinine [Mass/Vol] 1.01 mg/dL High 0.40 - 1.00 mg/dL [facility] Comment on above: METHOD TRACEABLE TO IDMS STANDARD EGFR Non-Race Dependent 57 Low - PINF [facility] Comment on above: Reported eGFR is bas ed on the CKD-EPI 2020 equation that does not use a race coefficient. Glucose [Mass/Vol] 119 mg/dL High 65 - 99 mg/dL [facility] Potassium [Moles/Vol] 4.4 mmol/L 3.5 - 5.0 mmol/L [facility] Protein [Mass/Vol] 7.2 g/dL 6.0 - 8.0 g/dL [facility] Sodium [Moles/Vol] 141 mmol/L 134 - 146 mmol/L [facility] Urea nitrogen [Mass/Vol] 18 mg/dL 5 - 27 mg/dL [facility] LIPID PROFILEon 10-11-2024 Cholesterol [Mass/Vol] 105 mg/dL Low 150-200 [facility] Comment on above: Performed By: #### L IPR #### [facility] ([facility]) [address] [place] [address] VIR Cholesterol in HDL [Mass/Vol] 49 mg/dL Normal >39 [facility] Comment on above: Result Comment: HDL <40 mg/dL - High Risk HDL > or = 40mg/dL- Desirable HDL >60 mg/dL - Negative Risk Performed By: #### L IPR #### [facility] ([facility]) [address] [place] [address] VIR Cholesterol in LDL [Mass/Vol] 41 mg/dL Normal <130 [facility] Comment on above: Result Comment: LDL <100 mg/dL - Desirable LDL >160 mg/dL - High Risk Performed By: #### L IPR #### [facility] ([facility]) [address] [place] [address] VIR CHOLESTEROL:HDL 2.1 Normal 1.0-5.0 [facility] Comment on above: Performed By: #### L IPR #### [facility] ([facility]) [address] [place] [address] VIR Triglyceride [Mass/Vol] 73 mg/dL Normal 27-150 [facility] Comment on above: Performed By: #### L IPR #### [facility] ([facility]) [address] [place] [address] VIR VERY LOW LIPOPROTEIN 15 mg/dL Normal 0-30 [facility] Comment on above: Performed By: #### L IPR #### [facility] ([facility]) [address] [place] [address] VIR Lipid profileon 10-11-2024 Cholesterol [Mass/Vol] 105 mg/dL Low 150 - 200 mg/dL [facility] Cholesterol in HDL [Mass/Vol] 49 mg/dL 39 - PINF mg/dL [facility] Comment on above: HDL <40 mg/dL - High Risk HDL > or = 40mg/dL- Desirable HDL >60 mg/dL - Negative Risk Cholesterol in HDL [Mass/Vol] 2.1 mg/dL 1.0 - 5.0 [facility] Cholesterol in LDL [Mass/Vol] 41 mg/dL NINF - 130 mg/dL [facility] Comment on above: LDL <100 mg/dL - Edgard irable LDL >160 mg/dL - High Risk Cholesterol in VLDL [Mass/Vol] 15 mg/dL 0 - 30 mg/dL [facility] Triglyceride [Mass/Vol] 73 mg/dL 27 - 150 mg/dL [facility] MAGNESIUMon 10-11-2024 Magnesium [Mass/Vol] 2.1 mg/dL Normal 1.8-2.6 [facility] Comment on above: Performed By: #### M G #### [facility] ([facility]) [address] [place] [address] VIR Magnesiumon 10-11-2024 Magnesium [Mass/Vol] 2.1 mg/dL 1.8 - 2.6 mg/dL [facility] No Panel Informationon 10-11 Interpretation and review of laboratory results Abnormal [facility] Interpretation and review of laboratory results Normal [facility] PARATHYROID HORMOME, INTACTo n 10-11-2024 PTH INTACT 169 pg/mL High 12-88 [facility] Comment on above: Performed By: #### P TH #### [facility] ([facility]) [address] [place] [address] VIR PHOSPHORUSon 10-11-2024 Phosphate [Mass/Vol] 4.0 mg/dL Normal 2.4-4.9 [facility] Comment on above: Performed By: #### P HOS #### [facility] ([facility]) [address] [place] [address] VIR Parathyroid Hormone, intacto n 10-11-2024 Interpretation and review of laboratory results Abnormal [facility] Parathyrin.intact [Mass/Vol] 169 pg/mL High 12 - 88 pg/mL [facility] Phosphoruson 10-11-2024 Phosphate [Mass/Vol] 4 mg/dL 2.4 - 4.9 mg/dL [facility] URIC ACIDon 10-11-2024 Urate [Mass/Vol] 4.3 mg/dL Normal 2.6-7.2 [facility] Comment on above: Performed By: #### U SHAKIR #### [facility] ([facility]) [address] [place] [address] VIR Uric acidon 10-11-2024 Urate [Mass/Vol] 4.3 mg/dL 2.6 - 7.2 mg/dL [facility] VITAMIN D 25 HYDROXYon 10-11 VITAMIN D 25 HYD TOT 24.7 ng/mL Low 30.0-100.0 [facility] Comment on above: Order Comment: Vitam in D status 25 [place] Vitamin D Deficiency <20 ng/mL Insufficiency 20-29 ng/mL Sufficiency 30-100 ng/mL Toxicity >100 ng/mL NOTE: A pediatric reference range has not been established by the equipment monitor phototypesetting of this kit. The [place] [employer] recommends a Vitamin D level of = or >20ng/mL in infants and children. Performed By: #### V ITD #### [facility] ([facility]) [address] [place] [address] VIR Vitamin D 25 hydroxyon 10-11 25-hydroxyvitamin D3 [Mass/Vol] 24.7 ng/mL Low 30.0 - 100.0 ng/mL [facility] Interpretation and review of laboratory results Abnormal [facility] Vitamin D status 25 [place] Vitamin D Deficiency <20 ng/mL Insufficiency 20-29 ng/mL Sufficiency 30-100 ng/mL Toxicity >100 ng/mL NOTE: A pediatric reference range has not been established by the equipment monitor phototypesetting of this kit. The [place] [employer] recommends a Vitamin D level of = or >20ng/mL in infants and children. [facility] BASIC METABOLIC PANLon 12-14 Anion gap [Moles/Vol] 6 mmol/L Normal 5-15 [facility] Comment on above: Performed By: #### B MP #### [facility] ([id number]) [address], [address] [place] [address] Calcium [Mass/Vol] 8.9 mg/dL Normal 8.5-10.5 [facility] Comment on above: Performed By: #### B MP #### [facility] ([id number]) [address], [address] [place] [address] Chloride [Moles/Vol] 101 mmol/L Normal 98-109 [facility] Comment on above: Performed By: #### B MP #### [facility] ([id number]) [address], [address] [place] [address] CO2 [Moles/Vol] 33 mmol/L High 22-32 [facility] Comment on above: Performed By: #### B MP #### [facility] ([id number]) [address], [address] [place] [address] Creatinine [Mass/Vol] 1.40 mg/dL High 0.40-1.00 [facility] Comment on above: Result Comment: METH OD TRACEABLE TO IDMS STANDARD Performed By: #### B MP #### [facility] ([id number]) [address], [address] [place] [address] GFR/1.73 sq M.predicted among non-blacks MDRD (S/P/Bld) [Vol rate/Area] 39 mL/min/{1.73_m2} Low >59 [facility] Comment on above: Result Comment: Reported eGFR is based on the CKD-EPI 2020 equation that does not use a race coefficient. Performed By: #### B MP #### [facility] ([id number]) [address], [address] [place] [address] Glucose [Mass/Vol] 94 mg/dL Normal 65-99 [facility] Comment on above: Performed By: #### B MP #### [facility] ([id number]) [address], [address] [place] [address] Potassium [Moles/Vol] 5.3 mmol/L High 3.5-5.0 [facility] Comment on above: Performed By: #### B MP #### [facility] ([id number]) [address], [address] [place] [address] Sodium [Moles/Vol] 140 mmol/L Normal 134-146 [facility] Comment on above: Performed By: #### B MP #### [facility] ([id number]) [address] [place] [address] Urea nitrogen [Mass/Vol] 20 mg/dL Normal 5-27 [facility] Comment on above: Performed By: #### B MP #### [facility] ([id number]) [address], [address] [place] [address] COMPLETE BLOOD COUNTon 11-04 Erythrocyte distribution width (RBC) [Ratio] 14.3 % Normal 11.5-15.0 [facility] Comment on above: Performed By: #### C BC, 3084-1, 55824-3, 70768-8, 2777-1, 71484-5, CMP, 2731-8 #### [facility] ([id number]) [address], [address] [place] [address] Hematocrit (Bld) [Volume fraction] 41.9 % Normal 35-47 [facility] Comment on above: Performed By: #### C BC, 3084-1, 39786-2, 90907-4, 2777-1, 43838-4, CMP, 2731-8 #### [facility] ([id number]) [address], [address] [place] [address] Hemoglobin (Bld) [Mass/Vol] 13.4 g/dL Normal 11.7-15.5 [facility] Comment on above: Performed By: #### Carter BC, 3084-1, 34696-8, 05961-9, 2777-1, 35568-3, CMP, 2730-8 #### [facility] ([id number]) [address], [address] [place] [address] MCH (RBC) [Entitic mass] 33.0 pg Normal 27-34 [facility] Comment on above: Performed By: #### Carter BC, 3084-1, 38228-6, 69010-9, 7-1, 26099-2, CMP, 2730-8 #### [facility] ([id number]) [address], [address] [place] [address] MCHC (RBC) [Mass/Vol] 32.1 g/dL Normal 32-36 [facility] Comment on above: Performed By: #### C BC, 3084-1, 70155-9, 05939-7, 2777-1, 87802-5, CMP, 273-8 #### [facility] ([id number]) [address], [address] [place] [address] MCV (RBC) [Entitic vol] 103 fL High 80-100 [facility] Comment on above: Performed By: #### C BC, 3084-1, 68428-0, 87246-7, 2777-1, 89572-4, CMP, 273-8 #### [facility] ([id number]) [address], [address] [place] [address] Platelet mean volume (Bld) [Entitic vol] 8.5 fL Normal 7-12 [facility] Comment on above: Performed By: #### C BC, 3084-1, 77443-0, 62821-2, 2777-1, 99932-4, CMP, 2731-8 #### [facility] ([id number]) [address], [address] [place] [address] Platelets (Bld) [#/Vol] 184 10*3/uL Normal 150-450 [facility] Comment on above: Performed By: #### C BC, 3084-1, 00269-3, 63477-9, 2777-1, 22465-1, CMP, 2731-8 #### [facility] ([id number]) [address], [address] [place] [address] RBC COUNT 4.08 X10E12/L Normal 3.80-5.20 [facility] Comment on above: Performed By: #### C BC, 3084-1, 75081-9, 12635-4, 2777-1, 42978-2, CMP, 2731-8 #### [facility] ([id number]) [address], [address] [place] [address] WBC (Bld) [#/Vol] 5.9 10*3/uL Normal 4.0-11.0 [facility] Comment on above: Performed By: #### C BC, 3084-1, 47266-8, 18618-5, 2777-1, 19090-2, CMP, 2731-8 #### [facility] ([id number]) [address], [address] [place] [address] COMPREHENSIVE METABOLIC PANE Refugio 11-05-2023 Albumin [Mass/Vol] 3.9 g/dL Normal 3.2-5.3 [facility] Comment on above: Performed By: #### C BC, 3084-1, 14986-2, 64118-8, 2777-1, 05415-3, CMP, 2731-8 #### [facility] ([id number]) [address], [address] [place] [address] ALP [Catalytic activity/Vol] 84 U/L Normal 39-130 [facility] Comment on above: Performed By: #### C , 3084-1, 42800-9, 50861-4, 2777-1, 69368-2, CMP, 2731-8 #### [facility] ([id number]) [address], [address] [place] [address] ALT [Catalytic activity/Vol] 17 U/L Normal 0-31 [facility] Comment on above: Performed By: #### C , 3084-1, 34453-1, 80498-9, 2777-1, 88539-1, CMP, 2731-8 #### [facility] ([id number]) [address], [address] [place] [address] Anion gap [Moles/Vol] 7 mmol/L Normal 5-15 [facility] Comment on above: Performed By: #### Carter , 3084-1, 59110-6, 73247-4, 2777-1, 98676-2, CMP, 2731-8 #### [facility] ([id number]) [address], [address] [place] [address] AST [Catalytic activity/Vol] 22 U/L Normal 0-41 [facility] Comment on above: Performed By: #### Carter , 3084-1, 12184-5, 04660-0, 2777-1, 31576-4, CMP, 2731-8 #### [facility] ([id number]) [address], [address] [place] [address] Bilirubin [Mass/Vol] 0.6 mg/dL Normal 0.3-1.2 [facility] Comment on above: Performed By: #### Carter BC, 3084-1, 13808-8, 71839-5, 2777-1, 80452-4, CMP, 2731-8 #### [facility] ([id number]) [address], [address] [place] [address] Calcium [Mass/Vol] 9.1 mg/dL Normal 8.5-10.5 [facility] Comment on above: Performed By: #### Carter BC, 3084-1, 45813-9, 65236-9, 2777-1, 09062-9, CMP, 2731-8 #### [facility] ([id number]) [address], [address] [place] [address] Chloride [Moles/Vol] 99 mmol/L Normal 98-109 [facility] Comment on above: Performed By: #### Carter BC, 3084-1, 92792-7, 39755-9, 2777-1, 39215-3, CMP, 2731-8 #### [facility] ([id number]) [address], [address] [place] [address] CO2 [Moles/Vol] 30 mmol/L Normal 22-32 [facility] Comment on above: Performed By: #### Carter BC, 3084-1, 13985-7, 60816-2, 2777-1, 82910-2, CMP, 2731-8 #### [facility] ([id number]) [address], [address] [place] [address] Creatinine [Mass/Vol] 1.23 mg/dL High 0.40-1.00 [facility] Comment on above: Result Comment: METH OD TRACEABLE TO IDMS STANDARD Performed By: #### Carter BC, 3084-1, 44203-6, 19815-1, 2777-1, 16399-1, CMP, 2731-8 #### [facility] ([id number]) [address], [address] [place] [address] GFR/1.73 sq M.predicted among non-blacks MDRD (S/P/Bld) [Vol rate/Area] 45 mL/min/{1.73_m2} Low >59 [facility] Comment on above: Result Comment: Reported eGFR is based on the CKD-EPI 2020 equation that does not use a race coefficient. Performed By: #### C BC, 3084-1, 23237-9, 07511-2, 2777-1, 03954-1, CMP, 2731-8 #### [facility] ([id number]) [address], [address] [place] [address] Glucose [Mass/Vol] 85 mg/dL Normal 65-99 [facility] Comment on above: Performed By: #### C , 3084-1, 63335-6, 39830-2, 2777-1, 01239-9, CMP, 2731-8 #### [facility] ([id number]) [address], [address] [place] [address] Potassium [Moles/Vol] 6.0 mmol/L High 3.5-5.0 [facility] Comment on above: Performed By: #### Carter , 3084-1, 26499-4, 03137-2, 2777-1, 38261-2, CMP, 2731-8 #### [facility] ([id number]) [address], [address] [place] [address] Protein [Mass/Vol] 6.9 g/dL Normal 6.0-8.0 [facility] Comment on above: Performed By: #### C , 3084-1, 07530-9, 50982-0, 2777-1, 78319-1, CMP, 2731-8 #### [facility] ([id number]) [address], [address] [place] [address] Sodium [Moles/Vol] 136 mmol/L Normal 134-146 [facility] Comment on above: Performed By: #### C BC, 3084-1, 14182-5, 34848-6, 2777-1, 58109-8, CMP, 2731-8 #### [facility] ([id number]) [address], [address] [place] [address] Urea nitrogen [Mass/Vol] 22 mg/dL Normal 5-27 [facility] Comment on above: Performed By: #### Carter PAZ, 3084-1, 14028-3, 91209-7, 7-1, 48919-6, CMP, 2731-8 #### [facility] ([id number]) [address], [address] [place] [address] Lipid 1996 panelon 4 Cholesterol [Mass/Vol] 118 mg/dL Low 150-200 [facility] Comment on above: Performed By: #### Carter PAZ, 3084-1, 09863-2, 28061-8, 2777-1, 85423-6, CMP, 2731-8 #### [facility] ([id number]) [address], [address] [place] [address] Cholesterol in HDL [Mass/Vol] 47 mg/dL Normal >39 [facility] Comment on above: Result Comment: HDL <40 mg/dL - High Risk HDL > or = 40mg/dL- Desirable HDL >60 mg/dL - Negative Risk Performed By: ###Lesa Machado BC, 3084-1, 13945-3, 83888-2, 7-1, 39949-4, CMP, 2731-8 #### [facility] ([id number]) [address], [address] [place] [address] Cholesterol in LDL [Mass/Vol] 59 mg/dL Normal <130 [facility] Comment on above: Result Comment: LDL <100 mg/dL - Desirable LDL >160 mg/dL - High Risk Performed By: #### Carter BC, 3084-1, 82915-2, 11394-9, 2777-1, 45586-2, CMP, 2731-8 #### [facility] ([id number]) [address], [address] [place] [address] Cholesterol in VLDL [Mass/Vol] 12 mg/dL Normal 0-30 [facility] Comment on above: Performed By: #### C BC, 3084-1, 92596-7, 75712-5, 2777-1, 30659-9, CMP, 2731-8 #### [facility] ([id number]) [address], [address] [place] [address] CHOLESTEROL:HDL 2.5 Normal 1.0-5.0 [facility] Comment on above: Performed By: #### C BC, 3084-1, 10176-7, 48080-2, 2777-1, 47659-5, CMP, 2731-8 #### [facility] ([id number]) [address], [address] [place] [address] Triglyceride [Mass/Vol] 62 mg/dL Normal 27-150 [facility] Comment on above: Performed By: #### C BC, 3084-1, 40241-5, 40196-0, 2777-1, 04403-2, CMP, 2731-8 #### [facility] ([id number]) [address], [address] [place] [address] MAGNESIUMon 11-05-2023 Magnesium [Mass/Vol] 1.9 mg/dL Normal 1.8-2.6 [facility] Comment on above: Performed By: #### C BC, 3084-1, 52552-4, 39440-9, 2777-1, 29507-1, CMP, 2731-8 #### [facility] ([id number]) [address], [address] [place] [address] PHOSPHORUSon 11-05-2023 Phosphate [Mass/Vol] 4.5 mg/dL Normal 2.4-4.9 [facility] Comment on above: Performed By: #### C , 3084-1, 05383-6, 40187-3, 2777-1, 51893-8, [facility], 2731-8 #### [facility] ([id number]) [address] [place] [address] Parathyrin.intact [Mass/Vol] on 11-05-2023 PTH INTACT 145 pg/mL High 12-88 [facility] Comment on above: Performed By: #### C , 3084-1, 48922-2, 04000-9, 2777-1, 14846-5, [facility], 2731-8 #### [facility] ([id number]) [address] [place] [address] URIC ACIDon 11-05-2023 Urate [Mass/Vol] 5.9 mg/dL Normal 2.6-7.2 [facility] Comment on above: Performed By: #### C , 3084-1, 27476-3, 91550-5, 2777-1, 57372-8, [facility], 2731-8 #### [facility] ([id number]) [address] [place] [address] Vitamin D+Metabolites [Mass/ Vol]on 11-05-2023 VITAMIN D 25 HYD TOT 27.9 ng/mL Low 30-100 [facility] Comment on above: Result Comment: Vitamin D status 25 [place] Vitamin D Deficiency <20 ng/mL Insufficiency 20-29 ng/mL Sufficiency 30-100 ng/mL Toxicity >100 ng/mL NOTE: A pediatric reference range has not been established by the equipment monitor phototypesetting of this kit. The [place] [employer] recommends a Vitamin D level of = or >20ng/mL in infants and children. Performed By: #### C BC, 3084-1, 65897-9, 31822-2, 2777-1, 43839-6, CMP, 2731-8 #### [facility] ([id number]) [address], [address] [place] [address] COMPREHENSIVE METABOLIC PANE [facility] 09-06-2021 Albumin [Mass/Vol] 4.2 g/dL Normal 3.6-5.1 [facility] Comment on above: Performed By: #### 1 0231, 7600 #### [facility] of [address], [address] [place] [address] [employer] Specialist: Fabien Forrest MD Albumin/Globulin [Mass ratio] 1.4 {ratio} Normal 1.0-2.5 [facility] Comment on above: Performed By: #### 1 0231, 7600 #### [facility] [address], [address] [place] [address] [employer] Specialist: Fabien Forrest MD ALP [Catalytic activity/Vol] 74 U/L Normal 37-153 [facility] Comment on above: Performed By: #### 1 023, 7600 #### [facility] [address], [address] [place] [address] [employer] Specialist: Fabien Forrest MD ALT [Catalytic activity/Vol] 11 U/L Normal 6-29 [facility] Comment on above: Result Comment: NO C OLLECTION DATE RECEIVED. WE HAVE USED THE DATE THE SPECIMEN WAS RECEIVED BY THIS LABORATORY THE COLLECTION DATE. IF THIS IS INCORRECT, PLEASE CONTACT CLIENT SERVICES. PHONE NUMBER: [phone] Performed By: #### 1 0231, 7600 #### [facility] [address], [address] [place] [address] [employer] Specialist: Fabien Forrest MD AST [Catalytic activity/Vol] 16 U/L Normal 10-35 [facility] Comment on above: Performed By: #### 1 0231, 7600 #### [facility] [address], [address] [place] [address] [employer] Specialist: Fabien Forrest MD Bilirubin [Mass/Vol] 0.5 mg/dL Normal 0.2-1.2 [facility] Comment on above: Performed By: #### 1 230, 7600 #### [facility] [address], [address] [place] [address] [employer] Specialist: Fabien Forrest MD Calcium [Mass/Vol] 8.9 mg/dL Normal 8.6-10.4 [facility] Comment on above: Performed By: #### 1 230, 7600 #### [facility] [place] [address] [employer] Specialist: Fabien Forrest MD Chloride [Moles/Vol] 100 mmol/L Normal 98-110 [facility] Comment on above: Performed By: #### 1 230, 7600 #### [facility] [place] [address] [employer] Specialist: Fabien Forrest MD CO2 [Moles/Vol] 34 mmol/L High 20-32 [facility] Comment on above: Performed By: #### 1 230, 0 #### [facility] [place] [address] [employer] Specialist: Fabien Forrest MD Creatinine [Mass/Vol] 0.99 mg/dL High 0.60-0.93 [facility] Comment on above: Result Comment: For patients >49 years of age, the reference limit for Creatinine is approximately 13% higher for people identified as -[place]. Performed By: #### 1 230, 0 #### [facility] [place] [address] [employer] Specialist: Fabien Forrest MD eGFR NON-AFR. AZERBAIJANI 56 mL/min/1.73m2 Low > OR = 60 [facility] Comment on above: Performed By: #### 1 230, 7600 #### [facility] [place] [address] [employer] Specialist: Fabien Forrest MD GFR/1.73 sq M.predicted among blacks MDRD (S/P/Bld) [Vol rate/Area] 65 mL/min/{1.73_m2} Normal > OR = 60 [facility] Comment on above: Performed By: #### 1 0231, 7600 #### [facility] of [place] [address] [employer] Specialist: Fabien Forrest MD Globulin (S) [Mass/Vol] 2.9 g/dL Normal 1.9-3.7 [facility] Comment on above: Performed By: #### 1 023, 7600 #### [facility] of [address], [address] [place] [address] [employer] Plan Specialist: Fabien Forrest MD Glucose [Mass/Vol] 82 mg/dL Normal 65-99 [facility] Comment on above: Result Comment: Fasting reference interval Performed By: #### 1 023, 7600 #### [facility] [place] [address] [employer] Specialist: Fabien Forrest MD Potassium [Moles/Vol] 5.0 mmol/L Normal 3.5-5.3 [facility] Comment on above: Performed By: #### 1 023, 0 #### [facility] [place] [address] [employer] Specialist: Fabien Forrest MD Protein [Mass/Vol] 7.1 g/dL Normal 6.1-8.1 [facility] Comment on above: Performed By: #### 1 023, 7600 #### [facility] [place] [address] [employer] Specialist: Fabien Forrest MD Sodium [Moles/Vol] 138 mmol/L Normal 135-146 [facility] Comment on above: Performed By: #### 1 0231, 7600 #### [facility] [place] [address] [employer] Specialist: Fabien Forrest MD Urea nitrogen [Mass/Vol] 18 mg/dL Normal 7-25 [facility] Comment on above: Performed By: #### 1 0231, 7600 #### [facility] of [address], [address] [place] [address] Financial Ret[employer] Plan Specialist: Fabien Forrest MD Urea nitrogen/Creatinine [Mass ratio] 18 mg/mg Normal 6-22 [facility] Comment on above: Performed By: #### 1 0231, 7600 #### [facility] [address], [address] [place] [address] [employer] Plan Specialist: Fabien Forrest MD LIPID PANEL, [facility] 08-11 Cholesterol [Mass/Vol] 162 mg/dL Normal <200 [facility] Comment on above: Performed By: #### 1 0231, 7600 #### [facility] [address], [address] [place] [address] Financial [employer] Plan Specialist: Fabien Forrest MD Cholesterol in HDL [Mass/Vol] 42 mg/dL Low > OR = 50 [facility] Comment on above: Performed By: #### 1 023, 7600 #### [facility] [address], [address] [place] [address] [employer] Plan Specialist: Fabien Forrest MD Cholesterol in LDL [Mass/Vol] 101 mg/dL High [facility] Comment on above: Result Comment: Refe rence range: <100 Desirable range <100 mg/dL for primary prevention; <70 mg/dL for patients with CHD or diabetic patients with > or = 2 CHD risk factors. LDL-C is now calculated using the Gama calculation, which is a validated novel method providing better accuracy than the Friedewald equation in the estimation of LDL-C. Angel VEGA et al. DELVIS. 2013;310(19): 1625-8761 (http://education.[employer].Health eVillages/faq/SVJ514) Performed By: #### 1 0231, 7600 #### [facility] [place] [address] [employer] Specialist: Fabien Forrest MD Cholesterol.total/Ch olesterol in HDL [Mass ratio] 3.9 {ratio} Normal <5.0 [facility] Comment on above: Performed By: #### 1 0231, 7600 #### [facility] [address], [address] [place] [address] [employer] Specialist: Fabien Forrest MD NON HDL CHOLESTEROL 120 mg/dL (calc) Normal <130 [facility] Comment on above: Result Comment: For patients with diabetes plus 1 major ASCVD risk factor, treating to a non-HDL-C goal of <100 mg/dL (LDL-C of <70 mg/dL) is considered a therapeutic option. Performed By: #### 1 0231, 7600 #### [facility] [address], [address] [place], [place] [id number] [employer] Specialist: Fabien Forrest MD Triglyceride [Mass/Vol] 99 mg/dL Normal <150 [facility] Comment on above: Performed By: #### 1 0231, 7600 #### [facility] [address], [address] [place], [place] [id number] [employer] Specialist: Fabien Forrest MD Vital Signs Date Time Vital Sign Value Performing Clinician Faci randally 12-09-2024 10:33-0400 Body height 157.5 cm Varun Furlong DO Work Phone: [facility] 12-09-2024 10:33-0400 Body mass index (BMI) [Ratio] 32.56 kg/m2 Varun Furlong DO Work Phone: [facility] 12-09-2024 10:33-0400 Body weight 80.74 kg Varun Furlong DO Work Phone: [facility] 12-09-2024 10:33-0400 Diastolic blood pressure 78 mm[Hg] Varun Furlong DO Work Phone: [facility] 12-09-2024 10:33-0400 Systolic blood pressure 148 mm[Hg] Varun Furlong DO Work Phone: [facility] 10-11-2024 12:57-0400 Body height 157.5 cm Varun Furlong DO Work Phone: [facility] 10-11-2024 12:57-0400 Body mass index (BMI) [Ratio] 31.78 kg/m2 Varun Furlong DO Work Phone: [facility] 10-11-2024 12:57-0400 Body temperature 98.1 [degF] Varun Furlong DO Work Phone: [facility] 10-11-2024 12:57-0400 Body weight 78.83 kg Varun Furlong DO Work Phone: [facility] 10-11-2024 12:57-0400 Diastolic blood pressure 62 mm[Hg] Varun Furlong DO Work Phone: [facility] 10-11-2024 12:57-0400 Heart rate 86 /min Varun Furlong DO Work Phone: [facility] 10-11-2024 12:57-0400 Respiratory rate 20 /min Varun Furlong DO Work Phone: [facility] 10-11-2024 12:57-0400 SaO2% (BldA) [Mass fraction] 93 % Varun Furlong DO Work Phone: [facility] 10-11-2024 12:57-0400 Systolic blood pressure 140 mm[Hg] Varun Furlong DO Work Phone: [facility] 04-30-2024 15:01-0500 Body temperature 97.3 [degF] Varun Furlong DO Work Phone: [facility] 04-27-2024 17:39-0500 Body temperature 98.1 [degF] Varun Furlong DO Work Phone: [facility] 04-27-2024 17:39-0500 Diastolic blood pressure 82 mm[Hg] Varun Furlong DO Work Phone: [facility] [facility] 04-27-2024 17:39-0500 Heart rate 84 /min Varun Furlong DO Work Phone: [facility] 04-27-2024 17:39-0500 Respiratory rate 18 /min Varun Veliz DO Work Phone: [facility] 04-27-2024 17:39-0500 SaO2% (BldA) [Mass fraction] 91 % Varun Veliz DO Work Phone: [facility] 04-27-2024 17:39-0500 Systolic blood pressure 138 mm[Hg] Var[facility] Veliz DO [facility] Encounters Encounter Date Encounter Type Care Provider Facility Start: 12-09-2024 End: 12-09-2024 Patient encounter procedure Varun Veliz DO Work Phone: [facility] Comment on above: Medicare annual well ness visit, subsequent (Primary Dx); Screening for depression Start: 12-09-2024 End: 12-09-2024 Orders Only Varun Veliz DO Work Phone: [facility] Start: 11-30-2024 End: 11-30-2024 Refill Varun Veliz DO Work Phone: [facility] Comment on above: Hyperlipidemia, unsp ecified Start: 11-15-2024 End: 11-15-2024 Refill Varun Veliz DO Work Phone: [facility] Start: 10-13-2024 End: 10-13-2024 Orders Only Varun Veliz DO Work Phone: [facility] Start: 10-11-2024 End: 10-11-2024 Office outpatient visit 25 minutes Varun Veliz DO Work Phone: [facility] Comment on above: Hypertensive kidney disease with stage 3b chronic kidney disease (CMS-HCC) (Primary Dx); Pain of right hand; Hyperlipidemia, unspecified hyperlipidemia type; Bilateral hearing loss, unspecified hearing loss type; Chronic obstructive pulmonary disease, unspecified COPD type ([facility]); Chronic bilateral low back pain without sciatica Start: 10-11-2024 End: 10-11-2024 ambulatory [facility] Start: 10-07-2024 End: 10-07-2024 Refill Varun Veliz DO Work Phone: [facility] Comment on above: Chronic gout without tophus, unspecified cause, unspecified site Start: 05-04-2024 End: 05-04-2024 Orders Only Varun Veliz DO Work Phone: [facility] Comment on above: Chronic obstructive pulmonary disease, unspecified COPD type ([facility]) (Primary Dx) Start: 04-30-2024 End: 04-30-2024 ambulatory Varun Veliz DO Work Phone: [facility] Comment on above: Chronic obstructive pulmonary disease, unspecified COPD type (CMS-HCC) (Primary Dx); Acute respiratory failure with hypoxia ([facility]); Closed nondisplaced fracture of greater trochanter of left femur with routine healing; Essential hypertension Start: 04-27-2024 End: 05-06-2024 ambulatory Varun Veliz DO Work Phone: [facility] Comment on above: Acute respiratory fa ilure with hypoxia ([facility]) (Primary Dx); Chronic obstructive pulmonary disease, unspecified COPD type ([facility]); Pneumonia due to infectious organism, unspecified laterality, unspecified part of lung; Essential hypertension; Class 1 obesity due to excess calories with serious comorbidity and body mass index (BMI) of 30.0 to 30.9 in adult; Hypertensive kidney disease with stage 3b chronic kidney disease ([facility]) Start: 12-15-2023 End: 12-15-2023 [facility] Start: 12-15-2023 End: 12-15-2023 [facility] Start: 11-05-2023 End: [facility] Start: 08-01-[address] FRENCH Nahomi VELIZ Fac ility:H1 Procedures Date Procedure Procedure Detail Performing Clinician Start: 12-09-2024 Adult depression scr eening assessment Varun Veliz DO Work Phone: Start: 10-11-2024 Comprehensive metabo lic panel Varun Veliz DO Work Phone: Start: 10-11-2024 Lipid panel Varun valencia DO Work Phone: Start: 10-11-2024 Adult depression scr eening assessment Varun Veliz DO Work Phone: Start: 12-15-2023 Adult depression scr eening assessment Varun Veliz DO Work Phone: Plan of Treatment Date Care Activity Detail Author Start: 12-13-2025 End: 12-13-2025 Patient encounter procedure 12/13/2025 11:00 AM EDT [facility] Visit [facility] [address] [place] [address] [facility] Start: 12-09-2025 Depression Screening Depression Screening [facility] Start: 12-09-2025 Fall Risk Screening Fall Risk Screening [facility] Start: 12-09-2025 Medicare Annual Wellness Visit Medicare Annual Wellness Visit [facility] Start: 10-11-2025 Depression Screening Depression Screening [facility] Start: 10-11-2025 Fall Risk Screening Fall Risk Screening [facility] Start: 10-11-2025 Tobacco Screening Tobacco Screening [facility] Start: 04-13-2025 End: 04-13-2025 Patient encounter procedure 04/13/2025 10:30 AM EST Office Visit [facility] [address] [place] [address] Varun Veliz DO [address] [place] [address] [facility] Start: 01-10-2025 Influenza vaccination Influenza Vaccine [facility] Start: 12-14-2024 Depression Screening Depression Screening [facility] Start: 12-14-2024 Fall Risk Screening Fall Risk Screening [facility] Start: 12-14-2024 Tobacco Screening Tobacco Screening [facility] Start: 12-09-2024 End: 12-09-2024 Patient encounter procedure 12/09/2024 10:40 AM EDT Office Visit [facility] [address] [place] [address] [facility] Family [facility] Start: 10-11-2024 End: 10-11-2024 Patient encounter procedure 10/11/2024 1:00 PM EDT Office Visit [facility] [address] [place] [address] Varun Veliz DO [address] [place] [address] [facility] Start: 09-23-2024 End: 09-23-2024 Patient encounter procedure 09/23/2024 12:20 PM EDT Office Visit [facility] [address] [place] [address] [facility] Start: 09-17-2024 Medicare Annual Wellness Visit Medicare Annual Wellness Visit [facility] Start: 08-16-2024 End: 08-16-2024 Patient encounter procedure 08/16/2024 10:00 AM EDT Office Visit [facility] [address] [place] [address] Varun Veliz DO [address] [place] [address] [facility] Start: 01-11-2024 Influenza vaccination Influenza Vaccine [facility] Start: 1996 Administration of varicella zoster vaccine Zoster (Shingles) Vaccine (1 of 2) [facility] Start: 1965 DTaP,Tdap and Td Vaccines (1 - Tdap) DTaP,Tdap and Td Vaccines (1 - Tdap) [facility] Payers Date Payer Category Payer Medicare HMO ANTH MEDICARE [id number] 2021 Medicare [id number] 1959 Self-pay 1945 Unknown [id number] 1945 Unknown [id number] 1945 Unknown [id number] 1945 Unknown [id number] 6 1945 Unknown [id number] 6 1945 Unknown [id number] Social History Date Type Detail Facility Start: 11-05-2023 Tobacco smoking stat [facility] Ex-smoker [facility] History of tobacco use Current smoker [facility] History of tobacco use Cigarette Smoker P [facility] Start: 08-15-2022 End: 11-05-2023 Cigarettes smoked current (pack per day) - Reported 1 [facility] Start: 11-05-2023 Tobacco use and exposure Smokeless tobacco non-user [facility] Start: 12-15-2023 End: 10-11-2024 Alcoholic beverage intake Ex-drinker (finding) [facility] Start: 08-15-2022 End: 09-18-2023 [facility] [employer] [facility] Has the [employer], or water [employer] threatened to shut off services in your home in past 12Mo No [facility] Are you now , , , , never or living with a partner? [facility] How often to you hav e a drink containing alcohol? Never [facility] How many standard drinks containing alcohol do you have on a typical day? Patient does not drink [facility] Do you feel stress - tense, restless, nervous, or anxious, or unable to sleep at night because your mind is troubled all the time - these days [OSQ] Not at all [facility] Start: 1945 Sex assigned at Not on file P [facility] Start: 01-11-2022 Sex Female (finding) [facility] [place] Clinical Notes 04-27-2024 to 12-09-2024 Varun Veliz, DO - 12/09/2024 10:40 AM Tika Veliz, DO - 10/11/2024 1:00 PM Tika Veliz, DO - 04/30/2024 3:00 PM Brayden Veliz, DO - 04/27/2024 11:59 PM EST Note Date & Type Note Facility 12-09-2024 History of Present illness Narrative Subjective SUBJECTIVE: Patient ID: Caryn Guzman is a 79 y.o. female who presents for a Medicare Annual Wellness exam. HPI The following portions of the patient's history were reviewed and updated as appropriate: allergies, current medications, past family history, past medical history, past social history, past surgical history and problem list. AWV FLOWSHEET : Lifestyle Assessment Do you smoke or use smokeless tobacco?: No If you smoke or use smokeless tobacco, are you ready to quit?: NA Are you exposed to secondhand smoke?: No On average, how many drinks of alcohol do you consume in a week?: None Do you exercise for 30 or more minutes on average at least 3 days a week?: (!) Never Do you have any tooth, denture, or oral problems?: (!) Yes Do you snore or has anyone told you that you snore?: No Do you try to eat a balanced diet?: (!) No Do you experience leakage of urine, also known as urinary incontinence?: Never Do you have difficulty bathing?: No Do you have difficulty dressing?: No Do you have difficulty grooming?: No Do you have difficulty eating?: No Do you have difficulty getting out of a chair?: (!) Yes Do you have difficulty walking?: (!) Yes Do you have difficulty using the toilet?: No Do you have difficulty doing laundry?: No Do you have difficulty with housekeeping?: No Do you have difficulty preparing a meal?: No Do you have difficulty shopping?: (!) Yes Do you have difficulty using transportation?: No Do you have difficulty paying bills?: No Do you have difficulty managing finances?: No Fall Risk Fall Risk Assessment Completed?: Yes Have you fallen in the past year?: (!) Yes How many times?: 1 Were you injured?: (!) Yes Are you worried about falling?: (!) Yes Do you feel unsteady when standing or walking?: (!) Yes Risk Stratification: High Risk Depression Screening Little interest or pleasure in doing things: Not at all Feeling down, depressed, or hopeless: Not at all Trouble falling or staying asleep, or sleeping too much: Not at all Feeling tired or having little energy: Not at all Poor appetite or overeating: Not at all Feeling bad about yourself - or that you are a failure or have let yourself or your family down: Not at all Trouble concentrating on things, such as reading the newspaper or watching television: Not at all Moving or speaking so slowly that other people could have noticed. Or the opposite - being so fidgety or restless that you have been moving around a lot more than usual: Not at all Thoughts that you would be better off , or of hurting yourself in some way: Not at all PEG Scale What number best describes your pain on average in the past week?: 4 Safety Assessment Do you have throw rugs on the floor?: No Do you feel safe at your home?: Yes Do you feel unsteady when walking?: (!) Yes Are you having difficulty with driving?: N/A Do you have trouble seeing?: No Do you use a bath bar/seat?: (!) Yes Do you use a raised toilet seat?: (!) Yes Do you use a cane?: (!) Yes Do you use a walker?: (!) Yes Do you use a wheelchair?: No Hearing Assessment Do you strain or struggle to hear/understand conversations?: (!) Yes Do you have trouble hearing the television or radio when others do not?: (!) Yes Does your family ever voice concerns about your hearing?: (!) Yes Do you wear hearing aid/s?: No Personal Health During the past 4 weeks, how would you rate your overall health?: (!) Poor Do you understand how to take all of your medications?: Yes How confident are you that you can control and manage most of your health problems?: (!) Somewhat confident In the past 12 months, how many times have you been hospitalized?: (!) One End of Life Planning Do you have a living will?: Yes Do you have a durable power of pelt dropper?: Yes Cognitive Screening Do you have trouble remembering or recalling facts or events?: (!) Yes Do family members or caregivers report that you have difficulty remembering things?: (!) Yes 6-Cit: Abnormal mini mental exam deferred REVIEW OF SYSTEMS: Review of Systems Objective PHYSICAL EXAMINATION: Vitals: 12/09/24 1033 BP: 148/78 Weight: 80.7 kg (178 lb) Height: 157.5 cm (5' 2 ) Physical Exam Assessment/Plan ASSESSMENT/PLAN Encounter Diagnoses Name Primary? Medicare annual wellness visit, subsequent Yes Screening for depression Health maintenance discussed. Depression screen was negative. At least 3 minute spent administering and discussing. Cognitive evaluation did reveal any impairment. She declines further evaluation. She has advanced directives in place. Return in about 1 year (around 12/09/2025). documented in this encounter [facility] 10-11-2024 History of Present illness Narrative Subjective Patient ID: Caryn Guzman is a 79 y.o. female. Adrienne presents for a CV recheck. She is taking her medications. She doesn't have any side effects. She has pain in her right hand. There is some swelling on the back of her hand but it hurts more in the palm. She stopped meloxicam because of her chronic kidney disease. Her step daughter wanted to know why it was stopped an it was due to CKD. She is also having trouble hearing and wants to know how to go about getting hearing aids but patient isn't sure she wants them. She also is having low back pain. It worsens the more she is up. She was taking meloxicam but that was stopped. Wants to know what she can take and if she should have x-rays. Pain doesn't radiate down her legs. Hyperlipidemia Hypertension The following portions of the patient's history were reviewed and updated as appropriate: allergies, current medications, past family history, past medical history, past social history, past surgical history, problem list, and medication reconciliation was completed including current medication and post discharge medication. Review of Systems Constitutional: Negative. HENT: Positive for hearing loss. Eyes: Negative. Respiratory: Negative. Cardiovascular: Negative. Gastrointestinal: Negative. Genitourinary: Negative. Musculoskeletal: Positive for arthralgias, back pain and gait problem. Psychiatric/Behavioral: Negative. Objective Physical Exam Vitals reviewed. Exam conducted with a breast worker present (step daughter and Carlos Cerda MS 3). Constitutional: General: She is not in acute distress. Appearance: She is obese. HENT: Head: Normocephalic. Ears: Dalal exam findings: Does not lateralize. Right Rinne: AC > BC. Left Rinne: AC > BC. Eyes: Extraocular Movements: Extraocular movements intact. Conjunctiva/sclera: Conjunctivae normal. Pupils: Pupils are equal, round, and reactive to light. Neck: Vascular: No carotid bruit. Cardiovascular: Rate and Rhythm: Normal rate and regular rhythm. Pulses: Normal pulses. Heart sounds: Normal heart sounds. No murmur heard. Pulmonary: Effort: Pulmonary effort is normal. No respiratory distress. Breath sounds: Normal breath sounds. No wheezing, rhonchi or rales. Musculoskeletal: General: Swelling (mild edema of posterior hand) present. Right lower leg: Edema (Trace) present. Left lower leg: Edema (Trace) present. Comments: Swelling improved Lymphadenopathy: Cervical: No cervical adenopathy. Neurological: General: No focal deficit present. Mental Status: She is alert and oriented to person, place, and time. Gait: Gait abnormal (She walks slowly with a walker). Psychiatric: Attention and Perception: Attention and perception normal. Mood and Affect: Mood and affect normal. Speech: Speech normal. Behavior: Behavior normal. Behavior is cooperative. Thought Content: Thought content normal. Judgment: Judgment normal. Assessment/Plan Caryn was seen today for hyperlipidemia and hypertension. Diagnoses and all orders for this visit: Hypertensive kidney disease with stage 3b chronic kidney disease ([facility]) - CBC without diff; Future - Comprehensive metabolic panel; Future - Magnesium; Future - Parathyroid Hormone, intact; Future - Phosphorus; Future - Uric acid; Future - Vitamin D 25 hydroxy; Future - Vitamin D 25 hydroxy - Uric acid - Phosphorus - Parathyroid Hormone, intact - Magnesium - Comprehensive metabolic panel - CBC without diff Check CKD labs. BP borderline high. Monitor at home periodically Pain of right hand I suspect a tendonitis. 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 Can refer to automotive parts specialist or can now buy OTC. They will let me know if they want a referral. Chronic obstructive pulmonary disease, unspecified COPD type ([facility]) Stable. Pt defers testing or meds Chronic bilateral low back pain without sciatica - X-ray spine lumbar 2 or 3 views Check x-ray of lumbar spine Other orders - predniSONE (DELTASONE) 20 mg tablet; Take 1 tablet (20 mg total) by mouth in the morning and 1 tablet (20 mg total) before bedtime. Do all this for 5 days. - famotidine (PEPCID AC) 10 mg tablet; Take 1 tablet (10 mg total) by mouth in the morning and 1 tablet (10 mg total) before bedtime. documented in this encounter [facility] [facility] 04-30-2024 History of Present illness Narrative Patient Name: Caryn Guzman Date of : 1945 Date of Service: 04/30/2024 Facility: [facility] Type of Visit: Skilled Visit Subjective Caryn Guzman is a 78 y.o. female seen today at [facility] facility for . Adrienne is going to be going home tomorrow. Therapy his complete to part due to her being cut by her insurance. She is able to get up and use the restroom by herself her oxygen level drops. Was 91% oxygen when she exerts herself it dropped to 87%. She needed oxygen 3 liters/minute to maintain O2 saturation >90%. He is finished with her antibiotics. It did give her diarrhea. She is using the nebulizer 3 times a day for shortness a breath. It is effective. Allergies: Aspirin Code Status: FULL CODE Temp 36.3 C (97.3 F) Physical Exam Vitals reviewed. Exam conducted with a breast worker present (Melina Hoang MS 3). Constitutional: General: She is not in acute distress. Appearance: She is not ill-appearing. Comments: In room HENT: Head: Normocephalic. Eyes: General: No scleral icterus. Extraocular Movements: Extraocular movements intact. Conjunctiva/sclera: Conjunctivae normal. Cardiovascular: Rate and Rhythm: Normal rate and regular rhythm. Pulses: Normal pulses. Heart sounds: Normal heart sounds. No murmur heard. Pulmonary: Effort: Pulmonary effort is normal. No respiratory distress. Breath sounds: Examination of the right-upper field reveals decreased breath sounds. Examination of the left-upper field reveals decreased breath sounds. Examination of the right-middle field reveals decreased breath sounds. Examination of the left-middle field reveals decreased breath sounds. Examination of the right-lower field reveals decreased breath sounds. Examination of the left-lower field reveals decreased breath sounds. Decreased breath sounds present. No wheezing, rhonchi or rales. Comments: Wearing O2 Abdominal: General: Bowel sounds are normal. Palpations: Abdomen is soft. Tenderness: There is no abdominal tenderness. Musculoskeletal: Cervical back: Neck supple. Left hip: Tenderness and bony tenderness present. No deformity or lacerations. Decreased range of motion. Right lower leg: No edema. Left lower leg: No edema. Lymphadenopathy: Cervical: No cervical adenopathy. Neurological: General: No focal deficit present. Mental Status: She is alert and oriented to person, place, and time. Gait: Gait abnormal (ambulates with a walker). Psychiatric: Attention and Perception: Attention and perception normal. Mood and Affect: Mood and affect normal. Speech: Speech normal. Behavior: Behavior normal. Behavior is cooperative. Thought Content: Thought content normal. Cognition and Memory: Cognition normal. Judgment: Judgment normal. Summary / Assessment / Plan 1. Chronic obstructive pulmonary disease, unspecified COPD type (CMS-HCC) 2. Acute respiratory failure with hypoxia (CMS-HCC) 3. Closed nondisplaced fracture of greater trochanter of left femur with routine healing 4. Essential hypertension We will arrange for home oxygen therapy. Also continue nebulizer at home. She will use DuoNebs 3 times a day. Prescription was sent in. Referral for home health made. Follow up in the office within 2 weeks of discharge for transition care visit. ELECTRONICALLY SIGNED BY: Varun Veliz DO documented in this encounter [facility] 04-27-2024 History of Present illness Narrative Patient Name: Caryn Guzman Date of : 1945 Date of Service: 04/27/2024 Facility: [facility] Type of Visit: Skilled Visit Subjective Caryn Guzman is a 78 y.o. female seen today at retirement facility for therapy visit. Adrienne was seen today for a skilled visit. She is participating in therapy. She has not had any breathing issues. In fact, she wants to see if she can get off the oxygen. Allergies: Aspirin Code Status: FULL CODE BP 138/82 Pulse 84 Temp 36.7 C (98.1 F) Resp 18 SpO2 91% PF (!) 3 L/min Physical Exam Vitals reviewed. Exam conducted with a breast worker present (Melina Hoang MS 3). Constitutional: General: She is not in acute distress. Appearance: She is not ill-appearing. Comments: In room getting ready to eat lunch wearing oxygen HENT: Head: Normocephalic. Eyes: General: No scleral icterus. Extraocular Movements: Extraocular movements intact. Conjunctiva/sclera: Conjunctivae normal. Cardiovascular: Rate and Rhythm: Normal rate and regular rhythm. Pulses: Normal pulses. Heart sounds: Normal heart sounds. Pulmonary: Effort: Pulmonary effort is normal. No respiratory distress. Breath sounds: Normal breath sounds. No wheezing, rhonchi or rales. Comments: Wearing O2 Abdominal: General: Bowel sounds are normal. Palpations: Abdomen is soft. Tenderness: There is no abdominal tenderness. Musculoskeletal: Cervical back: Neck supple. Left hip: Tenderness and bony tenderness present. No deformity or lacerations. Decreased range of motion. Right lower leg: No edema. Left lower leg: No edema. Lymphadenopathy: Cervical: No cervical adenopathy. Neurological: General: No focal deficit present. Mental Status: She is alert and oriented to person, place, and time. Gait: Gait abnormal (ambulates with a walker). Psychiatric: Attention and Perception: Attention and perception normal. Mood and Affect: Mood and affect normal. Speech: Speech normal. Behavior: Behavior normal. Behavior is cooperative. Thought Content: Thought content normal. Cognition and Memory: Cognition normal. Judgment: Judgment normal. Summary / Assessment / Plan 1. Acute respiratory failure with hypoxia (CMS-HCC) 2. Chronic obstructive pulmonary disease, unspecified COPD type (CMS-HCC) 3. Pneumonia due to infectious organism, unspecified laterality, unspecified part of lung 4. Essential hypertension 5. Class 1 obesity due to excess calories with serious comorbidity and body mass index (BMI) of 30.0 to 30.9 in adult 6. Hypertensive kidney disease with stage 3b chronic kidney disease (CMS-HCC) She is slowly improving. I'm going to try to wean her down off of the oxygen or least get her to the lowest effective flow. Continue therapy to reach maximum improvement. I suspect she will be able to go home in the next week or so. Continue other orders as directed. ELECTRONICALLY SIGNED BY: Varun Veliz DO documented in this encounter [facility] Evaluation note Diagnosis Chronic obstructive pulmonary disease, unspecified COPD type (CMS-HCC)- Primary Acute respiratory failure with hypoxia ([facility]) Closed nondisplaced fracture of greater trochanter of left femur with routine healing Essential hypertension Unspecified essential hypertension [facility] Diagnosis Chronic obstructive pulmonary disease, unspecified COPD type ([facility])- Primary [facility] Diagnosis Acute respiratory failure with hypoxia ([facility])- Primary Chronic obstructive pulmonary disease, unspecified COPD type ([facility]) Pneumonia due to infectious organism, unspecified laterality, unspecified part of lung Essential hypertension Unspecified essential hypertension Class 1 obesity due to excess calories with serious comorbidity and body mass index (BMI) of 30.0 to 30.9 in adult Hypertensive kidney disease with stage 3b chronic kidney disease ([facility]) documented in this encounter [facility]* Diagnosis Chronic gout without tophus, unspecified cause, unspecified site [facility] Diagnosis Hypertensive kidney disease with stage 3b chronic kidney disease ([facility])- Primary Pain of right hand Hyperlipidemia, unspecified hyperlipidemia type Bilateral hearing loss, unspecified hearing loss type Chronic obstructive pulmonary disease, unspecified COPD type ([facility]) Chronic bilateral low back pain without sciatica documented in this encounter [facility]* Diagnosis Hyperlipidemia, unspecified documented in this encounter [facility]* Diagnosis Medicare annual wellness visit, subsequent- Primary Screening for depression documented in this encounter [facility] filedocumented in this encounter [facility] filedocumented in this [facility] filedocumented in this [facility] filedocumented in this [facility] filedocumented in this [facility] filedocumented in this [facility] Summary Purpose Family History No Family History Records FoundNo Family History Records FoundNo Family History Records FoundNo Family History Records Found Advance Directives No Advanced Directives Records FoundNo Advanced Directives Records FoundNo Advanced Directives Records FoundNo Advanced Directives Records Found Additional Source Comments INFORMATION SOURCE (unrecogn ized section and content) DATE CREATED AUTHOR 09/08/2021 [facility] DATE CREATED AUTHOR AUTHOR'S ORGANIZ ATION 08/02/2022 [facility] DATE CREATED AUTHOR AUTHOR'S ORGANIZ ATION 12/17/2023 [facility] DATE CREATED AUTHOR AUTHOR'S ORGANIZ ATION 12/11/2024 [facility] Care Teams (unrecognized sec tion and content) 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 Relationship Specialty Start Date End Date Jose Alfredo Varun Comer DO [address] [place] [address] PCP - General Family Medicine 01/25/22 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 Relationship Specialty Start Date End Date Adryan Velizyefri ComerDO [address] [place] [address] PCP - General Family Medicine 01/25/22 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 Relationship Specialty Start Date End Date Varun Veliz DO [address] [place] [address] PCP - General Family Medicine 01/25/22 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 Relationship Specialty Start Date End Date Varun Veliz NahomiDO [address] [place] [address] PCP - General Family Medicine 01/25/22 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 Relationship Specialty Start Date End Date Varun Veliz DO [address] [place] [address] PCP - General Family Medicine 01/25/22 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 Relationship Specialty Start Date End Date Varun Veliz DO [address] [place] [address] PCP - General Family Medicine 01/25/22 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 Relationship Specialty Start Date End Date Varun Veliz DO [address], [place] [address] PCP - General Family Medicine 01/25/22 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 Relationship Specialty Start Date End Date Varun Veliz DO [address], [place] [address] PCP - General Family Medicine 01/25/22 Reason for Visit (unrecogniz ed section and content) Reason Comments Med Refill Reason Comments Hyperlipidemia Hypertension Reason Comments maw FOR RECORDS PERTAINING TO PATIENTS WHO ARE OR HAVE BEEN ENROLLED IN A CHEMICAL DEPENDENCY/SUBSTANCEABUSE PROGRAM, SOME INFORMATION MAY BE OMITTED. This clinical summary was aggregated from multiple sources. Caution should be exercised in using it in the provision of clinical care. This summary normalizes information from multiple sources, and as a consequence, information in this document may materially change the coding, format and clinical context of patient data. In addition, data may be omitted in some cases. CLINICAL DECISIONS SHOULD BE BASED ON THE PRIMARY CLINICAL RECORDS. [employer] [facility]. provides no warranty or guarantee of the accuracy or completeness of information in this document.
[2025-01-25] MEDS: IPRATROPIUM/ALBUTEROL SULFATE 3 ML AMPUL.NEB IH (14:48)
[2025-01-25 15:03] LABS: Alanine Aminotransferase 19 U/L (14-59); Albumin Globulin Ratio 0.8; Albumin Level 3.2 g/dL (3.4-5.0); Alkaline Phosphatase 86 U/L (46-116); Anion Gap 8.3; Aspartate Amino Transferase 23 U/L (15-37); Blood Urea Nitrogen 28.0 mg/dL (7.0-18.0); Calcium 8.6 mg/dL (8.5-10.1); Carbon Dioxide 34.7 mmol/L (21.0-32.0); Chloride 106 mmol/L (98-107); Estimated GFR (African America 38 (>=60 mL/min/1.73m^2); Estimated GFR (Non-African Ame 31 (>=60 mL/min/1.73m^2); Globulin 4.1 g/dL; Glucose 112 mg/dL (74-106); Potassium 5.0 mmol/L (3.5-5.1); Sodium 144 mmol/L (136-145); Total Protein 7.3 g/dL (6.4-8.2)
[2025-01-25 15:11] LABS: SARS-CoV-2 Ag NEGATIVE (NEGATIVE)
[2025-01-25 15:11] LABS: NT Pro B Type Natriuretic Pept 11043.0 pg/mL (<=1800.0)
--- NOTE | 2025-01-25 15:40 | ECG_ITS ---
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 Measurements Intervals [place] Rate: 79 P: -48328 CO: 211 QRS: 88 QRSD: 74 T: 30 QT: 316 QTc: 350 Interpretive Statements 51318 Atrial flutter with aberrant conduction, or ventricular premature complexes 3434 Septal myocardial infarction, age undetermined 8102 Low QRS voltage in chest leads 8305 Short QTc interval 9150 abnormal ECG Compared to ECG 04/15/2024 21:06:33 Ventricular premature complex(es) now present Aberrant conduction of supraventricular beat(s) now present Myocardial infarct finding now present Low QRS voltage now present Sinus rhythm no longer present Electronically Signed On 01-25-2025 20:16:29 EDT by VIRY BOCANEGRA M.D.
--- NOTE | 2025-01-25 15:40 | ECG_ITS ---
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 Measurements Intervals [place] Rate: 76 P: 69 VA: 220 QRS: 102 QRSD: 80 T: 11 QT: 332 QTc: 363 Interpretive Statements 1100 Sinus rhythm 2231 First degree AV block 4068 Nonspecific Twave abnormality 7100 Abnormal right axis deviation Compared to ECG 01/25/2025 14:09:27 Myocardial infarct finding no longer present Electronically Signed On 01-25-2025 20:21:49 EDT by VIRY BOCANEGRA M.D.
[2025-01-25] MEDS: FUROSEMIDE 40 MG/4 ML VIAL IVP (16:23)
[2025-01-25 16:36] LABS: Glucose Urine UA >=1000 mg/dL (NEGATIVE)
[2025-01-25 16:52] LABS: Cast Seen? SEEN #/LPF (NONE SEEN); Crystals Seen? None Seen #/HPF (None Seen); Urine Culture Indicated NO
[2025-01-25 17:05] LABS: Allen Test POSITIVE (POSITIVE); HCO3 ABG 32.0 mmol/L (22.0-26.0); Oxygen Saturation ABG 84.9 %
[2025-01-25 17:06] LABS: Liters per Minute 5; O2 Mode NC; Puncture Site LR
[2025-01-25 17:09] LABS: ABG PCO2 65.2 mmHg (35.0-45.0); PO2 ABG 52.1 mmHg (80.0-100.0)
--- NOTE | 2025-01-25 18:05 | PM.HP ---
HPI H&P: HPI History of Present Illness Chief complaint: LOWER EXTREMITY PAIN Narrative: Mrs. Guzman is a 79-year-old female with a history of hypertension and hyperlipidemia. Patient was brought in with progressive shortness of breath and bilateral lower extremity swelling. She was found to have hypoxic respiratory failure evidence of CHF and a fluid overload clinically and radiologically. Chest x-ray showed interstitial edema. The BNP is elevated. Blood pressure is elevated. Patient denies any prior history of heart disease. No stenting. She has hypertension, probable diabetes for which she is on Farxiga. Patient does not have oxygen at home. Progressive cognitive and functional loss according to her [id number]. She uses a walker and a cane at home. Progressive hearing loss. Opioid HPI Opioid Management Most Recent Pain and Opioid Data: Last Pain Scale 0 04/17/24, 11: Last Pain Intensity 0 04/17/24, 11:27 Last ORT Total Score 0 04/15/24, 22:14 Last ORT Risk Category Low Risk 04/15/24, 22:14 Review of Systems ROS Status of ROS 10 or more systems reviewed and unremarkable except as noted in history and below [facility] Medical History (Updated 01/25/25 @ 18:08 by Belkys Sahu MD) Bilateral pneumonia ?J18.9 - Pneumonia, unspecified organism (ICD-10) UTI (urinary tract infection) ?N39.0 - Urinary tract infection, site not specified (ICD-10) Hypoxia ?R09.02 - Hypoxemia (ICD-10) Acute UTI ?N39.0 - Urinary tract infection, site not specified (ICD-10) Closed fracture of greater trochanter of left femur ?S72.112A - Displaced fracture of greater trochanter of left femur, initial encounter for closed fracture (ICD-10) HLD (hyperlipidemia) ?E78.5 - Hyperlipidemia, unspecified (ICD-10) 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 Smoking status: Former smoker Non-prescribed substance use: denies use Highest level of school completed/degree received: 10th grade Little interest or pleasure in doing things: not at all Feeling down, depressed, or hopeless: not at all Feel stressed/tense/nervous/anxious/difficulty sleeping: not at all Meds Home Medications and Allergies Home Medications ?Medication ?Instructions ?Recorded ?Confirmed ?Type allopurinol 100 mg tablet 100 mg PO .QD 04/15/24 01/25/25 History atorvastatin 10 mg tablet 10 mg PO .QHS 04/15/24 01/25/25 History baclofen 5 mg tablet 5 mg PO TID PRN pain 04/15/24 04/16/24 History dapagliflozin propanediol 10 mg 10 mg PO .QD 04/15/24 01/25/25 History tablet (Farxiga) ipratropium 0.5 mg-albuterol 3 mg 3 ml inhalation Q6H #180 mL 04/19/24 Rx (2.5 mg base)/3 mL nebulization soln oxycodone-acetaminophen 5 mg-325 1 tab PO Q6H PRN pain #120 tabs 04/19/24 Rx mg tablet prednisone 10 mg tablet 40 mg (4 x 10 mg) PO DAILY #32 tabs 04/19/24 Rx cholecalciferol (vitamin D3) 1,250 01/25/25 History mcg (50,000 unit) capsule Allergies Allergy/AdvReac Type Severity Reaction Status Date / Time aspirin Allergy Mild Abdominal Verified 01/25/25 14:03 Pain Exam Narrative Exam Narrative: Patient is in mild respiratory distress. Respiratory is about 22. Patient is on BiPAP. Pale skin and buccal mucosa. Positive for JVD. Chest exam revealed bilateral crackles. Heart is regular and tachycardic. Abdomen soft. +2 pitting edema in both legs significant pitting component. Cognitive impairment. Patient is unable to hear me due to hearing loss and BiPAP on her face. Her stepdaughter is at the bedside providing information. Patient also has cognitive loss. Able to lift up her arms or legs against gravity and some resistance Constitutional Vital Signs, click to edit/add: Last Vital Signs Temp 98.8 F 01/25/25 13:53 Pulse 106 H 01/25/25 17:48 Resp 16 01/25/25 17:20 BP 158/75 H 01/25/25 13:53 Pulse Ox 94 L 01/25/25 17:48 O2 Del Method BIPAP 01/25/25 17:24 O2 Flow Rate 6 01/25/25 16:40 FiO2 60 01/25/25 17:48 Results Labs Labs: Short CBC 01/25/25 Range/Units 14:35 WBC 5.9 (4.0-11.0) 10^3/uL Hgb 15.1 (12.0-16.0) g/dL Hct 51.2 H (36.0-48.0) % Plt Count 152 (150-450) 10^3/uL BMP 01/25/25 14:35 Sodium 144 Potassium 5.0 Chloride 106 Carbon Dioxide 34.7 H BUN 28.0 H Creatinine 1.60 H Glucose 112 H Calcium 8.6 Liver Function 01/25/25 Range/Units 14:35 Total Bilirubin 0.4 (0.2-1.0) mg/dL AST 23 (15-37) U/L ALT 19 (14-59) U/L Alkaline Phosphatase 86 (46-116) U/L Albumin 3.2 L (3.4-5.0) g/dL Urine 01/25/25 Range/Units 16:28 Urine Color Yellow (YELLOW) Urine Clarity Clear (CLEAR) Urine pH 6.0 (5.0-9.0) Ur Specific [place] 1.025 (1.005-1.025) Urine Protein 100 A (NEG/TRACE) mg/dL Urine Glucose (UA) >=1000 A (NEGATIVE) mg/dL ABG ABG results: 01/25/25 17:00 ABG pH 7.300 L ABG pCO2 65.2 H* ABG pO2 52.1 L* ABG HCO3 32.0 H ABG O2 Saturation 84.9 ABG Base Excess 5.6 H Assessment and Plan Assessment and Plan (1) Pulmonary edema with congestive heart failure: (2) Acute congestive heart failure: (3) Acute kidney failure: (4) COPD (chronic obstructive pulmonary disease): (5) Hypercapnia: (6) Cognitive attention deficit: (7) Impaired functional mobility and activity tolerance: Plan Acute diastolic heart failure, probable systolic heart failure. Echo completed in April 2024 showed positive diastolic dysfunction, preserved EF. COPD with hypoxic and hypercapnic respiratory failure Pulmonary hypertension. Right ventricular pressure was 55. Acute respiratory failure secondary to above I have accepted to admit patient to the stepdown unit. I would start patient on Lasix drip. Input and output measurement. Echocardiogram Blood pressure control. High flow oxygen, 40 L, 6 L with titration to keep saturation above 92% May need coronary evaluation. No clinical evidence of ACS. Troponin is negative. Lower extremities ultrasound rule out DVT. BALDO, CKD. Likely secondary to heart failure and cardiorenal syndrome. Started patient on Lasix drip. Consider sonogram of the kidney rule out obstructive uropathy if no improvement of kidney function down to baseline. Avina catheter for input and output measurement Cognitive loss, hearing loss I suspect that the patient may have a degree of neurodegenerative disorder, probable vascular dementia. Near baseline according to her stepdaughter. Functional loss. Patient uses a walker and a cane at home as reported by her stepdaughter. Functional impairment is exaggerated by significant lower extremities edema. As well as osteoarthritis deformities. PT OT eval and treatment May require short-term skilled care. Diabetes, probable on fark [employer]. Check A1c. Start patient on sliding scale. Chronic medical conditions not listed above, incidental findings seen on labs and imaging. These would need to be addressed. Could be addressed when time and condition are appropriate. Could be addressed in the outpatient setting by PCP collaboration with other needed outpatient providers. Spent about 50 minutes in the critical care evaluation, assessment and treatment of this patient thus far. I discussed her case with the ER physician. I discussed her care with her stepdaughter at the bedside. Urinary Catheter Management Urinary Catheter Management Urethral: Cath placed during this visit: yes Urethral indwelling: No Insertion date: 01/25/25 Insertion time: 16:33
--- OUTSIDE RECORDS SUMMARY | 2025-01-25 20:17 | XMS_ITS | CCD ---
Author Organization [facility] Inform ion Partnership [facility] Care Team Providers Care Speech/Language Therapist Name Role Phone JOSE ALFREDO, DR VARUN Comer Attending Unavailable FURLONG, DR VARUN Comer Admitting Unavailable STEPHANIE, RUGEN Primary Care Unavailable FURLONG, VARUN Comer Referring Unavailable FURLONG, VARUN Comer Primary Care Unavailable FURLONG, VARUN Comer Referring Unavailable FURLONG, VARUN Comer Primary Care Unavailable Furlong DOVarun Primary Care Provider [phone] Furlong Varun SOTELO Primary Care Provider MARIA [...] Facility (1 source) Aspirin Drug Allergy [facility] Repository (12 sources) Aspirin; Translations: [ASPIRIN] Drug [...] in the morning. 30 tablet 08/23/2022 Active zcqvmpnz-hon-JJ-lycopen -lutein (COMPLETE MV ADULT 50 PLUS) 0.4 mg-300 mcg- 250 mcg tablet (10 sources) take 1 tablet by mouth once in the evening twxqjuwg-ial-JY-lycope n-lutein (COMPLETE MV ADULT 50 PLUS) 0.4 [...] Chronic obstructive pulmonary disease, unspecified COPD type ([facility]) Inhale 3 mL by nebulization 3 (three) [...] width (RBC) [Ratio] 14.9 % Normal 11.5-15 [facility] Comment on above: Performed By: #### C BC #### [facility] ([facility]) [address] [place] [address] VIR Hematocrit (Bld) [Volume fraction] 42.0 % Normal 35-47 [facility] Comment on above: Performed By: #### C BC #### [facility] ([facility]) [address] [place] [address] VIR Hemoglobin (Bld) [Mass/Vol] 13.5 g/dL Normal 11.7-15.5 [facility] Comment on above: Performed By: #### C BC #### [facility] ([facility]) [address] [place] [address] VIR MCH (RBC) [Entitic mass] 32.1 pg Normal 27-34 [facility] Comment on above: Performed By: #### C BC #### [facility] ([facility]) [address] [place] [address] VIR MCHC (RBC) [Mass/Vol] 32.2 g/dL Normal 32-36 [facility] Comment on above: Performed By: #### C BC #### [facility] ([facility]) [address] [place] [address] VIR MCV (RBC) [Entitic vol] 100 fL Normal 80-100 [facility] Comment on above: Performed By: #### C BC #### [facility] ([facility]) [address] [place] [address] VIR Platelet mean volume (Bld) [Entitic vol] 7.8 fL Normal 7-12 [facility] Comment on above: Performed By: #### C BC #### [facility] ([facility]) [address] [place] [address] VIR Platelets (Bld) [#/Vol] 201 10*3/uL Normal 150-450 [facility] Comment on above: Performed By: #### C BC #### [facility] ([facility]) [address] [place] [address] VIR RBC COUNT 4.22 X10E12/L Normal 3.8-5.2 [facility] Comment on above: Performed By: #### C BC #### [facility] ([facility]) [address] [place] [address] VIR WBC (Bld) [#/Vol] 6.5 10*3/uL Normal 4-11 [facility] Comment on above: Performed By: #### C BC #### [facility] ([facility]) [address] [place] [address] VIR CBC without diffon Erythrocyte distribution width (RBC) [Ratio] 14.9 % 11.5 - 15 % [facility] Hematocrit (Bld) [Volume fraction] 42 % 35 - 47 % [facility] Hemoglobin (Bld) [Mass/Vol] 13.5 g/dL 11.7 - 15.5 g/dL [facility] Interpretation and review of laboratory results Normal [facility] MCH (RBC) [Entitic mass] 32.1 pg 27 - 34 pg [facility] MCHC (RBC) [Mass/Vol] 32.2 g/dL 32 - 36 g/dL [facility] MCV (RBC) [Entitic vol] 100 fL 80 - 100 fL [facility] Platelet mean volume (Bld) [Entitic vol] 7.8 fL 7 - 12 fL [facility] Platelets (Bld) [#/Vol] 201 10*3/uL [facility] RBC (Bld) [#/Vol] 4.22 10*6/uL [facility] WBC LM Ql (Sput) 6.[address] [facility] COMPREHENSIVE METABOLIC PANE Refugio 10-11-2024 Albumin [Mass/Vol] 3.8 g/dL Normal 3.2-5.3 [facility] Comment on above: Performed By: #### C MP #### [facility] ([facility]) [address] [place] [address] VIR ALP [Catalytic activity/Vol] 85 U/L Normal 39-130 [facility] Comment on above: Performed By: #### C MP #### [facility] ([facility]) [address] [place] [address] VIR ALT [Catalytic activity/Vol] 12 U/L Normal <=31 [facility] Comment on above: Performed By: #### C MP #### [facility] ([facility]) [address] [place] [address] VIR Anion gap [Moles/Vol] 6 mmol/L Normal 5-15 [facility] Comment on above: Performed By: #### C MP #### [facility] ([facility]) [address] [place] [address] VIR AST [Catalytic activity/Vol] 16 U/L Normal <=41 [facility] Comment on above: Performed By: #### C MP #### [facility] ([facility]) [address] [place] [address] VIR Bilirubin [Mass/Vol] 0.3 mg/dL Normal 0.3-1.2 [facility] Comment on above: Performed By: #### C MP #### [facility] ([facility]) [address] [place] [address] VIR Calcium [Mass/Vol] 8.8 mg/dL Normal 8.5-10.5 [facility] Comment on above: Performed By: #### C MP #### [facility] ([facility]) [address] [place] [address] VIR Chloride [Moles/Vol] 101 mmol/L Normal 98-109 [facility] Comment on above: Performed By: #### C MP #### [facility] ([facility]) [address] [place] [address] VIR CO2 [Moles/Vol] 34 mmol/L High 22-32 [facility] Comment on above: Performed By: #### C MP #### [facility] ([facility]) [address] [place] [address] VIR Creatinine [Mass/Vol] 1.01 mg/dL High 0.40-1.00 [facility] Comment on above: Result Comment: METH OD TRACEABLE TO IDMS STANDARD Performed By: #### C MP #### [facility] ([facility]) [address] [place] [address] VIR GFR/1.73 sq M.predicted among non-blacks MDRD (S/P/Bld) [Vol rate/Area] 57 mL/min/{1.73_m2} Low >=60 [facility] Comment on above: Result Comment: Repo rted eGFR is based on the CKD-EPI 2020 equation that does not use a race coefficient. Performed By: #### C MP #### [facility] ([facility]) [address] [place] [address] VIR Glucose [Mass/Vol] 119 mg/dL High 65-99 [facility] Comment on above: Performed By: #### C MP #### [facility] ([facility]) [address] [place] [address] VIR Potassium [Moles/Vol] 4.4 mmol/L Normal 3.5-5.0 [facility] Comment on above: Performed By: #### C MP #### [facility] ([facility]) [address] [place] [address] VIR Protein [Mass/Vol] 7.2 g/dL Normal 6.0-8.0 [facility] Comment on above: Performed By: #### C MP #### [facility] ([facility]) [address] [place] [address] VIR Sodium [Moles/Vol] 141 mmol/L Normal 134-146 [facility] Comment on above: Performed By: #### C MP #### [facility] ([facility]) [address] [place] [address] VIR Urea nitrogen [Mass/Vol] 18 mg/dL Normal 5-27 [facility] Comment on above: Performed By: #### C MP #### [facility] ([facility]) [address] [place] [address] VIR Comprehensive metabolic pane refugio 10-11-2024 Albumin [Mass/Vol] 3.8 g/dL 3.2 - 5.3 g/dL [facility] ALP [Catalytic activity/Vol] 85 U/L 39 - 130 U/L [facility] ALT No additional P-5'-P [Catalytic activity/Vol] 12 U/L NINF - 31 U/L [facility] Anion gap [Moles/Vol] 6 mmol/L 5 - 15 mmol/L [facility] AST [Catalytic activity/Vol] 16 U/L NINF - 41 U/L [facility] Bilirubin [Mass/Vol] 0.3 mg/dL 0.3 - 1.2 mg/dL [facility] Calcium [Mass/Vol] 8.8 mg/dL 8.5 - 10. 5 mg/dL [facility] Chloride [Moles/Vol] 101 mmol/L 98 - 109 mmol/L [facility] CO2 [Moles/Vol] 34 mmol/L High 22 - 32 mmol/L [facility] Creatinine [Mass/Vol] 1.01 mg/dL High 0.40 - 1.00 mg/dL [facility] Comment on above: METHOD TRACEABLE TO IDMS STANDARD EGFR Non-Race Dependent 57 Low - PINF [facility] Comment on above: Reported eGFR is bas ed on the CKD-EPI 2020 equation that does not use a race coefficient. Glucose [Mass/Vol] 119 mg/dL High 65 - 99 mg/dL [facility] Potassium [Moles/Vol] 4.4 mmol/L 3.5 - 5.0 mmol/L [facility] Protein [Mass/Vol] 7.2 g/dL 6.0 - 8.0 g/dL Pr [facility] Sodium [Moles/Vol] 141 mmol/L 134 - 146 mmol/L [facility] Urea nitrogen [Mass/Vol] 18 mg/dL 5 - 27 mg/dL [facility] LIPID PROFILEon 10-11-2024 Cholesterol [Mass/Vol] 105 mg/dL Low 150-200 [facility] Comment on above: Performed By: #### L IPR #### [facility] ([facility]) [address] [place] [address] VIR Cholesterol in HDL [Mass/Vol] 49 mg/dL Normal >39 [facility] Comment on above: Result Comment: HDL <40 mg/dL - High Risk HDL > or = 40mg/dL- Desirable HDL >60 mg/dL - Negative Risk Performed By: #### L IPR #### [facility] ([facility]) [address] [place] [address] VIR Cholesterol in LDL [Mass/Vol] 41 mg/dL Normal <130 [facility] Comment on above: Result Comment: LDL <100 mg/dL - Desirable LDL >160 mg/dL - High Risk Performed By: #### L IPR #### [facility] ([facility]) [address] [place] [address] VIR CHOLESTEROL:HDL 2.1 Normal 1.0-5.0 [facility] Comment on above: Performed By: #### L IPR #### [facility] ([facility]) [address] [place] [address] VIR Triglyceride [Mass/Vol] 73 mg/dL Normal 27-150 [facility] Comment on above: Performed By: #### L IPR #### [facility] ([facility]) [address] [place] [address] VIR VERY LOW LIPOPROTEIN 15 mg/dL Normal 0-30 [facility] Comment on above: Performed By: #### L IPR #### [facility] ([facility]) [address] [place] [address] VIR Lipid profileon 10-11-2024 Cholesterol [Mass/Vol] 105 mg/dL Low 150 - 200 mg/dL [facility] Cholesterol in HDL [Mass/Vol] 49 mg/dL 39 - PINF mg/dL [facility] Comment on above: HDL <40 mg/dL - High Risk HDL > or = 40mg/dL- Desirable HDL >60 mg/dL - Negative Risk Cholesterol in HDL [Mass/Vol] 2.1 mg/dL 1.0 - 5.0 [facility] Cholesterol in LDL [Mass/Vol] 41 mg/dL NINF - 130 mg/dL [facility] Comment on above: LDL <100 mg/dL - Edgard irable LDL >160 mg/dL - High Risk Cholesterol in VLDL [Mass/Vol] 15 mg/dL 0 - 30 mg/dL [facility] Triglyceride [Mass/Vol] 73 mg/dL 27 - 150 mg/dL [facility] MAGNESIUMon 10-11-2024 Magnesium [Mass/Vol] 2.1 mg/dL Normal 1.8-2.6 [facility] Comment on above: Performed By: #### M G #### [facility] ([facility]) [address] [place] [address] VIR Magnesiumon 10-11-2024 Magnesium [Mass/Vol] 2.1 mg/dL 1.8 - 2.6 mg/dL [facility] No Panel Informationon 10-11 Interpretation and review of laboratory results Abnormal [facility] Interpretation and review of laboratory results Normal [facility] PARATHYROID HORMOME, INTACTo n 10-11-2024 PTH INTACT 169 pg/mL High 12-88 [facility] Comment on above: Performed By: #### P TH #### [facility] ([facility]) [address] [place] [address] VIR PHOSPHORUSon 10-11-2024 Phosphate [Mass/Vol] 4.0 mg/dL Normal 2.4-4.9 [facility] Comment on above: Performed By: #### P HOS #### [facility] ([facility]) [address] [place] [address] VIR Parathyroid Hormone, intacto n 10-11-2024 Interpretation and review of laboratory results Abnormal [facility] Parathyrin.intact [Mass/Vol] 169 pg/mL High 12 - 88 pg/mL [facility] Phosphoruson 10-11-2024 Phosphate [Mass/Vol] 4 mg/dL 2.4 - 4.9 mg/dL [facility] URIC ACIDon 10-11-2024 Urate [Mass/Vol] 4.3 mg/dL Normal 2.6-7.2 [facility] Comment on above: Performed By: #### U SHAKIR #### [facility] ([facility]) [address] [place] [address] VIR Uric acidon 10-11-2024 Urate [Mass/Vol] 4.3 mg/dL 2.6 - 7.2 mg/dL [facility] VITAMIN D 25 HYDROXYon 10-11 VITAMIN D 25 HYD TOT 24.7 ng/mL Low 30.0-100.0 [facility] Comment on above: Order Comment: Vitam in D status 25 [place] Vitamin D Deficiency <20 ng/mL Insufficiency 20-29 ng/mL Sufficiency 30-100 ng/mL Toxicity >100 ng/mL NOTE: A pediatric reference range has not been established by the [employer] bi developer of this kit. The [place] [employer] recommends a Vitamin D level of = or >20ng/mL in infants and children. Performed By: #### V ITD #### [facility] ([facility]) [address] [place] [address] VIR Vitamin D 25 hydroxyon 10-11 25-hydroxyvitamin D3 [Mass/Vol] 24.7 ng/mL Low 30.0 - 100.0 ng/mL [facility] Interpretation and review of laboratory results Abnormal [facility] Vitamin D status 25 [place] Vitamin D Deficiency <20 ng/mL Insufficiency 20-29 ng/mL Sufficiency 30-100 ng/mL Toxicity >100 ng/mL NOTE: A pediatric reference range has not been established by the microstr[employer] bi developer of this kit. The [place] [employer] recommends a Vitamin D level of = or >20ng/mL in infants and children. [facility] BASIC METABOLIC PANLon 12-14 Anion gap [Moles/Vol] 6 mmol/L Normal 5-15 [facility] Comment on above: Performed By: #### B MP #### [facility] ([id number]) [address] [place] [address] Calcium [Mass/Vol] 8.9 mg/dL Normal 8.5-10.5 [facility] Comment on above: Performed By: #### B MP #### [facility] ([id number]) [address] [place] [address] Chloride [Moles/Vol] 101 mmol/L Normal 98-109 [facility] Comment on above: Performed By: #### B MP #### [facility] ([id number]) [address] [place] [address] CO2 [Moles/Vol] 33 mmol/L High 22-32 [facility] Comment on above: Performed By: #### B MP #### [facility] ([id number]) [address] [place] [address] Creatinine [Mass/Vol] 1.40 mg/dL High 0.40-1.00 [facility] Comment on above: Result Comment: METH OD TRACEABLE TO IDMS STANDARD Performed By: #### B MP #### [facility] ([id number]) [address] [place] [address] GFR/1.73 sq M.predicted among non-blacks MDRD (S/P/Bld) [Vol rate/Area] 39 mL/min/{1.73_m2} Low >59 [facility] Comment on above: Result Comment: Reported eGFR is based on the CKD-EPI 2020 equation that does not use a race coefficient. Performed By: #### B MP #### [facility] ([id number]) [address] [place] [address] Glucose [Mass/Vol] 94 mg/dL Normal 65-99 [facility] Comment on above: Performed By: #### B MP #### [facility] ([id number]) [address] [place] [address] Potassium [Moles/Vol] 5.3 mmol/L High 3.5-5.0 [facility] Comment on above: Performed By: #### B MP #### [facility] ([id number]) [address] [place] [address] Sodium [Moles/Vol] 140 mmol/L Normal 134-146 [facility] Comment on above: Performed By: #### B MP #### [facility] ([id number]) [address] [place] [address] Urea nitrogen [Mass/Vol] 20 mg/dL Normal 5-27 [facility] Comment on above: Performed By: #### B MP #### [facility] ([id number]) [address] [place] [address] COMPLETE BLOOD COUNTon 11-04 Erythrocyte distribution width (RBC) [Ratio] 14.3 % Normal 11.5-15.0 [facility] Comment on above: Performed By: #### C BC, 3084-1, 10193-6, 26595-6, 2777-1, 82091-6, CMP, 2731-8 #### [facility] ([id number]) [address] [place] [address] Hematocrit (Bld) [Volume fraction] 41.9 % Normal 35-47 [facility] Comment on above: Performed By: #### C BC, 3084-1, 59167-1, 80444-1, 2777-1, 72243-1, CMP, 2731-8 #### [facility] ([id number]) [address] [place] [address] Hemoglobin (Bld) [Mass/Vol] 13.4 g/dL Normal 11.7-15.5 [facility] Comment on above: Performed By: #### Carter BC, 3084-1, 11025-5, 24688-7, 2777-1, 17038-8, CMP, 2730-8 #### [facility] ([id number]) [address] [place] [address] MCH (RBC) [Entitic mass] 33.0 pg Normal 27-34 [facility] Comment on above: Performed By: #### Carter BC, 3084-1, 23731-2, 03442-3, 7-1, 83180-0, CMP, 2730-8 #### [facility] ([id number]) [address] [place] [address] MCHC (RBC) [Mass/Vol] 32.1 g/dL Normal 32-36 [facility] Comment on above: Performed By: #### C BC, 3084-1, 71204-8, 50784-6, 2777-1, 88685-1, CMP, 273-8 #### [facility] ([id number]) [address] [place] [address] MCV (RBC) [Entitic vol] 103 fL High 80-100 [facility] Comment on above: Performed By: #### C BC, 3084-1, 97017-2, 82644-6, 2777-1, 41732-0, CMP, 273-8 #### [facility] ([id number]) [address] [place] [address] Platelet mean volume (Bld) [Entitic vol] 8.5 fL Normal 7-12 [facility] Comment on above: Performed By: #### C BC, 3084-1, 20393-1, 64152-3, 2777-1, 73251-0, CMP, 2731-8 #### [facility] ([id number]) [address] [place] [address] Platelets (Bld) [#/Vol] 184 10*3/uL Normal 150-450 [facility] Comment on above: Performed By: #### C BC, 3084-1, 78100-6, 01934-6, 2777-1, 68816-9, CMP, 2731-8 #### [facility] ([id number]) [address] [place] [address] RBC COUNT 4.08 X10E12/L Normal 3.80-5.20 [facility] Comment on above: Performed By: #### C BC, 3084-1, 09098-5, 14306-7, 2777-1, 33374-6, CMP, 2731-8 #### [facility] ([id number]) [address] [place] [address] WBC (Bld) [#/Vol] 5.9 10*3/uL Normal 4.0-11.0 [facility] Comment on above: Performed By: #### C BC, 3084-1, 11770-9, 95838-8, 2777-1, 24991-9, CMP, 2731-8 #### [facility] ([id number]) [address] [place] [address] COMPREHENSIVE METABOLIC PANE Refugio 11-05-2023 Albumin [Mass/Vol] 3.9 g/dL Normal 3.2-5.3 [facility] Comment on above: Performed By: #### C BC, 3084-1, 41222-7, 27636-6, 2777-1, 62333-6, CMP, 2731-8 #### [facility] ([id number]) [address] [place] [address] ALP [Catalytic activity/Vol] 84 U/L Normal 39-130 [facility] Comment on above: Performed By: #### C , 3084-1, 63788-1, 59358-6, 2777-1, 20125-2, CMP, 2731-8 #### [facility] ([id number]) [address] [place] [address] ALT [Catalytic activity/Vol] 17 U/L Normal 0-31 [facility] Comment on above: Performed By: #### C , 3084-1, 17980-4, 07928-2, 2777-1, 65395-6, CMP, 2731-8 #### [facility] ([id number]) [address] [place] [address] Anion gap [Moles/Vol] 7 mmol/L Normal 5-15 [facility] Comment on above: Performed By: #### Carter , 3084-1, 78614-9, 24746-5, 2777-1, 13876-7, CMP, 2731-8 #### [facility] ([id number]) [address] [place] [address] AST [Catalytic activity/Vol] 22 U/L Normal 0-41 [facility] Comment on above: Performed By: #### Carter , 3084-1, 75940-2, 27959-8, 2777-1, 69526-9, CMP, 2731-8 #### [facility] ([id number]) [address] [place] [address] Bilirubin [Mass/Vol] 0.6 mg/dL Normal 0.3-1.2 [facility] Comment on above: Performed By: #### Carter BC, 3084-1, 19983-4, 10904-3, 2777-1, 96683-5, CMP, 2731-8 #### [facility] ([id number]) [address] [place] [address] Calcium [Mass/Vol] 9.1 mg/dL Normal 8.5-10.5 [facility] Comment on above: Performed By: #### Carter BC, 3084-1, 18331-0, 24634-9, 2777-1, 11922-9, CMP, 2731-8 #### [facility] ([id number]) [address], [address] [place] [address] Chloride [Moles/Vol] 99 mmol/L Normal 98-109 [facility] Comment on above: Performed By: #### Carter BC, 3084-1, 00707-6, 45864-5, 2777-1, 88839-9, CMP, 2731-8 #### [facility] ([id number]) [address], [address] [place] [address] CO2 [Moles/Vol] 30 mmol/L Normal 22-32 [facility] Comment on above: Performed By: #### Carter BC, 3084-1, 80659-4, 79669-9, 2777-1, 43750-5, CMP, 2731-8 #### [facility] ([id number]) [address], [address] [place] [address] Creatinine [Mass/Vol] 1.23 mg/dL High 0.40-1.00 [facility] Comment on above: Result Comment: METH OD TRACEABLE TO IDMS STANDARD Performed By: #### Carter BC, 3084-1, 06583-5, 22434-8, 2777-1, 51778-3, CMP, 2731-8 #### [facility] ([id number]) [address], [address] [place] [address] GFR/1.73 sq M.predicted among non-blacks MDRD (S/P/Bld) [Vol rate/Area] 45 mL/min/{1.73_m2} Low >59 [facility] Comment on above: Result Comment: Reported eGFR is based on the CKD-EPI 2020 equation that does not use a race coefficient. Performed By: #### C BC, 3084-1, 68315-9, 87742-7, 2777-1, 57419-9, CMP, 2731-8 #### [facility] ([id number]) [address], [address] [place] [address] Glucose [Mass/Vol] 85 mg/dL Normal 65-99 [facility] Comment on above: Performed By: #### C , 3084-1, 79316-5, 31148-8, 2777-1, 23918-9, CMP, 2731-8 #### [facility] ([id number]) [address] [address], [address] [place] [address] Potassium [Moles/Vol] 6.0 mmol/L High 3.5-5.0 [facility] Comment on above: Performed By: #### Carter , 3084-1, 29584-7, 85522-7, 2777-1, 95019-8, CMP, 2731-8 #### [facility] ([id number]) [address], [address] [place] [address] Protein [Mass/Vol] 6.9 g/dL Normal 6.0-8.0 [facility] Comment on above: Performed By: #### C , 3084-1, 13614-3, 70584-2, 2777-1, 75988-3, CMP, 2731-8 #### [facility] ([id number]) [address], [address] [place] [address] Sodium [Moles/Vol] 136 mmol/L Normal 134-146 [facility] Comment on above: Performed By: #### C BC, 3084-1, 27153-0, 57021-2, 2777-1, 56282-8, CMP, 2731-8 #### [facility] ([id number]) [address], [address] [place] [address] Urea nitrogen [Mass/Vol] 22 mg/dL Normal 5-27 [facility] Comment on above: Performed By: #### Carter PAZ, 3084-1, 92566-8, 80384-3, 7-1, 33230-0, CMP, 2731-8 #### [facility] ([id number]) [address], [address] [place] [address] Lipid 1996 panelon 4 Cholesterol [Mass/Vol] 118 mg/dL Low 150-200 [facility] Comment on above: Performed By: #### Carter PAZ, 3084-1, 91510-4, 18908-6, 2777-1, 84743-5, CMP, 2731-8 #### [facility] ([id number]) [address], [address] [place] [address] Cholesterol in HDL [Mass/Vol] 47 mg/dL Normal >39 [facility] Comment on above: Result Comment: HDL <40 mg/dL - High Risk HDL > or = 40mg/dL- Desirable HDL >60 mg/dL - Negative Risk Performed By: ###Lesa Machado BC, 3084-1, 49520-8, 20975-9, 7-1, 21676-4, CMP, 2731-8 #### [facility] ([id number]) [address], [address] [place] [address] Cholesterol in LDL [Mass/Vol] 59 mg/dL Normal <130 [facility] Comment on above: Result Comment: LDL <100 mg/dL - Desirable LDL >160 mg/dL - High Risk Performed By: #### Carter BC, 3084-1, 25223-2, 85426-4, 2777-1, 05855-3, CMP, 2731-8 #### [facility] ([id number]) [address], [address] [place] [address] Cholesterol in VLDL [Mass/Vol] 12 mg/dL Normal 0-30 [facility] Comment on above: Performed By: #### C BC, 3084-1, 13589-9, 94473-9, 2777-1, 65781-1, CMP, 2731-8 #### [facility] ([id number]) [address], [address] [place] [address] CHOLESTEROL:HDL 2.5 Normal 1.0-5.0 [facility] Comment on above: Performed By: #### C BC, 3084-1, 82636-3, 49474-2, 2777-1, 19353-3, CMP, 2731-8 #### [facility] ([id number]) [address], [address] [place] [address] Triglyceride [Mass/Vol] 62 mg/dL Normal 27-150 [facility] Comment on above: Performed By: #### C BC, 3084-1, 17595-3, 55737-4, 2777-1, 72105-4, CMP, 2731-8 #### [facility] ([id number]) [address], [address] [place] [address] MAGNESIUMon 11-05-2023 Magnesium [Mass/Vol] 1.9 mg/dL Normal 1.8-2.6 [facility] Comment on above: Performed By: #### C BC, 3084-1, 00165-0, 87035-3, 2777-1, 43938-3, CMP, 2731-8 #### [facility] ([id number]) [address], [address] [place] [address] PHOSPHORUSon 11-05-2023 Phosphate [Mass/Vol] 4.5 mg/dL Normal 2.4-4.9 [facility] Comment on above: Performed By: #### C , 3084-1, 43624-6, 30179-1, 2777-1, 25831-7, [facility], 2731-8 #### [facility] ([id number]) [address], [address] [place] [address] Parathyrin.intact [Mass/Vol] on 11-05-2023 PTH INTACT 145 pg/mL High 12-88 [facility] Comment on above: Performed By: #### C , 3084-1, 32344-0, 44778-5, 2777-1, 18593-4, [facility], 2731-8 #### [facility] ([id number]) [address], [address] [place] [address] URIC ACIDon 11-05-2023 Urate [Mass/Vol] 5.9 mg/dL Normal 2.6-7.2 [facility] Comment on above: Performed By: #### C , 3084-1, 01260-2, 02601-3, 2777-1, 46067-9, [facility], 2731-8 #### [facility] ([id number]) [address], [address] [place] [address] Vitamin D+Metabolites [Mass/ Vol]on 11-05-2023 VITAMIN D 25 HYD TOT 27.9 ng/mL Low 30-100 [facility] Comment on above: Result Comment: Vitamin D status 25 [place] Vitamin D Deficiency <20 ng/mL Insufficiency 20-29 ng/mL Sufficiency 30-100 ng/mL Toxicity >100 ng/mL NOTE: A pediatric reference range has not been established by the [employer] bi developer of this kit. The [place] [employer] recommends a Vitamin D level of = or >20ng/mL in infants and children. Performed By: #### C BC, 3084-1, 51695-2, 71627-1, 2777-1, 18476-0, CMP, 2731-8 #### [facility] ([id number]) [address] [address] [place] [address] COMPREHENSIVE METABOLIC PANE [facility] 09-06-2021 Albumin [Mass/Vol] 4.2 g/dL Normal 3.6-5.1 [facility] Comment on above: Performed By: #### 1 0231, 7600 #### [facility] of [address], [address] [place] [address] Marketing Underwriter: Fabien Forrest MD Albumin/Globulin [Mass ratio] 1.4 {ratio} Normal 1.0-2.5 [facility] Comment on above: Performed By: #### 1 0231, 7600 #### [facility] [address], [address] [place] [address] Marketing Underwriter: Fabien Forrest MD ALP [Catalytic activity/Vol] 74 U/L Normal 37-153 [facility] Comment on above: Performed By: #### 1 023, 7600 #### [facility] [address], [address] [place] [address] Marketing Underwriter: Fabien Forrest MD ALT [Catalytic activity/Vol] 11 U/L Normal 6-29 [facility] Comment on above: Result Comment: NO C OLLECTION DATE RECEIVED. WE HAVE USED THE DATE THE SPECIMEN WAS RECEIVED BY THIS LABORATORY THE COLLECTION DATE. IF THIS IS INCORRECT, PLEASE CONTACT CLIENT SERVICES. PHONE NUMBER: [phone] Performed By: #### 1 0231, 7600 #### [facility] [address], [address] [place] [address] Marketing Underwriter: Fabien Forrest MD AST [Catalytic activity/Vol] 16 U/L Normal 10-35 [facility] Comment on above: Performed By: #### 1 0231, 7600 #### [facility] [address], [address] [place] [address] Marketing Underwriter: Fabien Forrest MD Bilirubin [Mass/Vol] 0.5 mg/dL Normal 0.2-1.2 [facility] Comment on above: Performed By: #### 1 230, 7600 #### [facility] [address], [address] [place] [address] Marketing Underwriter: Fabien Forrest MD Calcium [Mass/Vol] 8.9 mg/dL Normal 8.6-10.4 [facility] Comment on above: Performed By: #### 1 230, 7600 #### [facility] [place] [address] Marketing Underwriter: Fabien Forrest MD Chloride [Moles/Vol] 100 mmol/L Normal 98-110 [facility] Comment on above: Performed By: #### 1 230, 7600 #### [facility] [place] [address] Marketing Underwriter: Fabien Forrest MD CO2 [Moles/Vol] 34 mmol/L High 20-32 [facility] Comment on above: Performed By: #### 1 230, 0 #### [facility] [place] [address] Marketing Underwriter: Fabien Forrest MD Creatinine [Mass/Vol] 0.99 mg/dL High 0.60-0.93 [facility] Comment on above: Result Comment: For patients >49 years of age, the reference limit for Creatinine is approximately 13% higher for people identified as -[place]. Performed By: #### 1 230, 0 #### [facility] [place] [address] Marketing Underwriter: Fabien Forrest MD eGFR NON-AFR. BURUNDIAN 56 mL/min/1.73m2 Low > OR = 60 [facility] Comment on above: Performed By: #### 1 230, 7600 #### [facility] [place] [address] Marketing Underwriter: Fabien Forrest MD GFR/1.73 sq M.predicted among blacks MDRD (S/P/Bld) [Vol rate/Area] 65 mL/min/{1.73_m2} Normal > OR = 60 [facility] Comment on above: Performed By: #### 1 0231, 7600 #### [facility] of [place] [address] Marketing Underwriter: Fabien Forrest MD Globulin (S) [Mass/Vol] 2.9 g/dL Normal 1.9-3.7 [facility] Comment on above: Performed By: #### 1 023, 7600 #### [facility] of [address], [address] [place] [address] Marketing Underwriter: Fabien Forrest MD Glucose [Mass/Vol] 82 mg/dL Normal 65-99 [facility] Comment on above: Result Comment: Fasting reference interval Performed By: #### 1 023, 7600 #### [facility] [place] [address] Marketing Underwriter: Fabien Forrest MD Potassium [Moles/Vol] 5.0 mmol/L Normal 3.5-5.3 [facility] Comment on above: Performed By: #### 1 023, 0 #### [facility] [place] [address] Marketing Underwriter: Fabien Forrest MD Protein [Mass/Vol] 7.1 g/dL Normal 6.1-8.1 [facility] Comment on above: Performed By: #### 1 023, 7600 #### [facility] [place] [address] Marketing Underwriter: Fabien Forrest MD Sodium [Moles/Vol] 138 mmol/L Normal 135-146 [facility] Comment on above: Performed By: #### 1 0231, 7600 #### [facility] [place] [address] Marketing Underwriter: Fabien Forrest MD Urea nitrogen [Mass/Vol] 18 mg/dL Normal 7-25 [facility] Comment on above: Performed By: #### 1 0231, 7600 #### [facility] of [address], [address] [place] [address] Marketing Underwriter: Fabien Forrest MD Urea nitrogen/Creatinine [Mass ratio] 18 mg/mg Normal 6-22 [facility] Comment on above: Performed By: #### 1 0231, 7600 #### [facility] [address], [address] [place] [address] Marketing Underwriter: Fabien Forrest MD LIPID PANEL, [facility] 08-11 Cholesterol [Mass/Vol] 162 mg/dL Normal <200 [facility] Comment on above: Performed By: #### 1 0231, 7600 #### [facility] [address], [address] [place] [address] Marketing Underwriter: Fabien Forrest MD Cholesterol in HDL [Mass/Vol] 42 mg/dL Low > OR = 50 [facility] Comment on above: Performed By: #### 1 023, 7600 #### [facility] [address], [address] [place] [address] Marketing Underwriter: Fabien Forrest MD Cholesterol in LDL [Mass/Vol] [...] LDL-C. Angel VEGA et al. DELVIS. 2013;310(19): 9564-1346 (http://[email or web address].Schoology/faq/WOE586) Performed By: #### 1 0231, 7600 #### [facility] [place] [address] Marketing Underwriter: Fabien Forrest MD Cholesterol.total/Ch olesterol in HDL [Mass ratio] 3.9 {ratio} Normal <5.0 [facility] Comment on above: Performed By: #### 1 0231, 7600 #### [facility] [address], [address] [place] [address] Marketing Underwriter: Fabien Forrest MD NON HDL CHOLESTEROL 120 mg/dL (calc) Normal <130 [facility] Comment on above: Result Comment: For patients with diabetes plus 1 major ASCVD risk factor, treating to a non-HDL-C goal of <100 mg/dL (LDL-C of <70 mg/dL) is considered a therapeutic option. Performed By: #### 1 0231, 7600 #### [facility] [address], [address] [place], [place] [id number] Marketing Underwriter: Fabien Forrest MD Triglyceride [Mass/Vol] 99 mg/dL Normal <150 [facility] Comment on above: Performed By: #### 1 0231, 7600 #### [facility] [address], [address] [place], [place] [id number] Marketing Underwriter: Fabien Forrest MD Vital Signs Date Time Vital Sign Value Performing Clinician Faci randally 12-09-2024 10:33-0400 Body height 157.5 cm Varun Furlong DO Work Phone: [facility] 12-09-2024 10:33-0400 Body mass index (BMI) [Ratio] 32.56 kg/m2 Varun Furlong DO Work Phone: [facility] 12-09-2024 10:33-0400 Body weight 80.74 kg Varun Furlong DO Work Phone: [facility] 12-09-2024 10:33-0400 Diastolic blood pressure 78 mm[Hg] Varun Furlong DO Work Phone: [facility] 12-09-2024 10:33-0400 Systolic blood pressure 148 mm[Hg] Varun Furlong DO Work Phone: [facility] 10-11-2024 12:57-0400 Body height 157.5 cm Varun Furlong DO Work Phone: [facility] 10-11-2024 12:57-0400 Body mass index (BMI) [Ratio] 31.78 kg/m2 Varun Furlong DO Work Phone: [facility] [employer] [facility] 10-11-2024 12:57-0400 Body temperature 98.1 [degF] Varun Furlong DO Work Phone: [facility] [employer] [facility] 10-11-2024 12:57-0400 Body weight 78.83 kg Varun Furlong DO Work Phone: [facility] [employer] [facility] 10-11-2024 12:57-0400 Diastolic blood pressure 62 mm[Hg] Varun Furlong DO Work Phone: [facility] [employer] [facility] 10-11-2024 12:57-0400 Heart rate 86 /min Varun Furlong DO Work Phone: [facility] [employer] [facility] 10-11-2024 12:57-0400 Respiratory rate 20 /min Varun Furlong DO Work Phone: [facility] 10-11-2024 12:57-0400 SaO2% (BldA) [Mass fraction] 93 % Varun Furlong DO Work Phone: [facility] 10-11-2024 12:57-0400 Systolic blood pressure 140 mm[Hg] Varun Furlong DO Work Phone: [facility] [employer] [facility] 04-30-2024 15:01-0500 Body temperature 97.3 [degF] Varun Furlong DO Work Phone: [facility] [employer] [facility] 04-27-2024 17:39-0500 Body temperature 98.1 [degF] Varun Furlong DO Work Phone: [facility] [employer] [facility] 04-27-2024 17:39-0500 Diastolic blood pressure 82 mm[Hg] Varun Furlong DO Work Phone: [facility] [employer] [facility] 04-27-2024 17:39-0500 Heart rate 84 /min Varun Furlong DO Work Phone: [facility] 04-27-2024 17:39-0500 Respiratory rate 18 /min Varun Veliz DO Work Phone: [facility] 04-27-2024 17:39-0500 SaO2% (BldA) [Mass fraction] 91 % Varun Veliz DO Work Phone: [facility] 04-27-2024 17:39-0500 Systolic blood pressure 138 mm[Hg] [facility] Veliz [facility] Encounters Encounter Date Encounter Type Care Provider Facility Start: 12-09-2024 End: 12-09-2024 Patient encounter procedure Varun Veliz DO Work Phone: [facility] Comment [...] Chronic obstructive pulmonary disease, unspecified COPD type ([facility]); Chronic bilateral low back pain without sciatica Start: 10-11-2024 End: 10-11-2024 ambulatory [facility] Start: 10-07-2024 End: 10-07-2024 Refill Varun Veliz DO Work Phone: [facility] Comment on above: Chronic gout without tophus, unspecified cause, unspecified site Start: 05-04-2024 End: 05-04-2024 Orders Only Varun Veliz DO Work Phone: [facility] Comment on above: Chronic obstructive pulmonary disease, unspecified COPD type ([facility]) (Primary Dx) Start: 04-30-2024 End: 04-30-2024 ambulatory Varun Veliz DO Work Phone: [facility] Comment on above: Chronic obstructive pulmonary disease, unspecified COPD type (CMS-HCC) (Primary Dx); Acute respiratory failure with hypoxia ([facility]); Closed nondisplaced fracture of greater trochanter of left femur with routine healing; Essential hypertension Start: 04-27-2024 End: 05-06-2024 ambulatory Varun Veliz DO Work Phone: [facility] Comment on above: Acute respiratory fa ilure with hypoxia ([facility]) (Primary Dx); Chronic obstructive pulmonary disease, unspecified COPD type ([facility]); Pneumonia due to infectious organism, unspecified laterality, unspecified part of lung; Essential hypertension; Class 1 obesity due to excess calories with serious comorbidity and body mass index (BMI) of 30.0 to 30.9 in adult; Hypertensive kidney disease with stage 3b chronic kidney disease ([facility]) Start: 12-15-2023 End: 12-15-2023 [facility] Start: 12-15-2023 End: 12-15-2023 [facility] Start: 11-05-2023 End: [facility]-05-[facility] Start: 08-01-[address] FRENCH Nahomi VELIZ [...] procedure 12/13/2025 11:00 AM EDT Office Visit [facility] [address] [place] [address] [facility] Start: 12-09-2025 Depression Screening Depression Screening [facility] Start: 12-09-2025 Fall Risk Screening Fall Risk Screening [facility] Start: 12-09-2025 Medicare Annual Wellness Visit Medicare Annual Wellness Visit [facility] Start: 10-11-2025 Depression Screening Depression Screening [facility] Start: 10-11-2025 Fall Risk Screening Fall Risk Screening [facility] Start: 10-11-2025 Tobacco Screening Tobacco Screening [facility] Start: 04-13-2025 End: 04-13-2025 Patient encounter procedure 04/13/2025 10:30 AM EST Office Visit [facility] [address] [place] [address] Varun Veliz DO [address] [place] [address] [facility] Internal [facility] Family [facility] Start: 01-10-2025 Influenza vaccination Influenza Vaccine [facility] Start: 12-14-2024 Depression Screening Depression Screening [facility] Start: 12-14-2024 Fall Risk Screening Fall Risk Screening [facility] Start: 12-14-2024 Tobacco Screening Tobacco Screening [facility] Start: 12-09-2024 End: 12-09-2024 Patient encounter procedure 12/09/2024 10:40 AM EDT Office Visit [facility] [address] [place] [address] [facility] Start: 10-11-2024 End: 10-11-2024 Patient encounter procedure 10/11/2024 1:00 PM EDT Office Visit [facility] [address] [place] [address] Varun Veliz DO [address] [place] [address] [facility] Start: 09-23-2024 End: 09-23-2024 Patient encounter procedure 09/23/2024 12:20 PM EDT Office Visit [facility] [address] [place] [address] [facility] Start: 09-17-2024 Medicare Annual Wellness Visit Medicare Annual Wellness Visit [facility] Start: 08-16-2024 End: 08-16-2024 Patient encounter procedure 08/16/2024 10:00 AM EDT Office Visit [facility] [address] [place] [address] Varun Veliz DO [address], [place] [address] [facility] Start: 01-11-2024 Influenza vaccination Influenza Vaccine [facility] Start: 1996 Administration of varicella zoster vaccine Zoster (Shingles) Vaccine (1 of 2) [facility] Start: 1965 DTaP,Tdap and Td Vaccines (1 - Tdap) DTaP,Tdap and Td Vaccines (1 - Tdap) [facility] Payers Date Payer Category Payer Medicare HMO ANTH MEDICARE [id number] 2021 Medicare [id number] 1958 Self-pay 1945 Unknown [id number] 1945 Unknown [id number] 6 1945 Unknown [id number] 6 1945 Unknown [id number] 6 1945 Unknown [id number] 6 1945 Unknown [id number] 6 Social History Date Type Detail Facility Start: 11-05-2023 Tobacco smoking stat [facility] Ex-smoker [facility] History of tobacco use Current smoker [facility] History of tobacco use Cigarette Smoker [facility] Start: 08-15-2022 End: 11-05-2023 Cigarettes smoked current (pack per day) - Reported 1 [facility] Start: 11-05-2023 Tobacco use and exposure Smokeless tobacco non-user [facility] Start: 12-15-2023 End: 10-11-2024 Alcoholic beverage intake Ex-drinker (finding) [facility] Start: 08-15-2022 End: 09-18-2023 [facility] [employer] [facility] Has the [place], or water Errund threatened to shut off services in your home in past 12Mo No [facility] Are you now , , , , never or living with a partner? [facility] How often to you hav e a drink containing alcohol? Never [facility] How many standard drinks containing alcohol do you have on a typical day? Patient does not drink [facility] Do you feel stress - tense, restless, nervous, or anxious, or unable to sleep at night because your mind is troubled all the time - these days [OSQ] Not at all [facility] Start: 1945 Sex assigned at Not on file [facility] Start: 01-11-2022 Sex Female (finding) [facility] Clinical Notes 04-27-2024 to 12-09-2024 Varun Veliz, [...] Do you have a durable power of commercial real estate attorney?: Yes Cognitive Screening Do you have trouble [...] year (around 12/09/2025). documented in this encounter [facility] 10-11-2024 History of Present illness Narrative Subjective [...] Exam Vitals reviewed. Exam conducted with a diversified crops supervisor present (step daughter and Carlos Cerda MS [...] disease with stage 3b chronic kidney disease ([facility]) - CBC without diff; Future - Comprehensive [...] be a SNHL b/l. Can refer to ship design teacher or can now buy OTC. They will let me know if they want a referral. Chronic obstructive pulmonary disease, unspecified COPD type ([facility]) Stable. Pt defers testing or meds Chronic [...] total) before bedtime. documented in this encounter [facility] [employer] 04-30-2024 History of Present illness Narrative Patient Name: Caryn Guzman Date of : 1945 Date of Service: 04/30/2024 Facility: [facility] Type of Visit: Skilled Visit Subjective Caryn Guzman is a 78 y.o. female seen today at group home facility for . Adrienne is going to [...] Exam Vitals reviewed. Exam conducted with a diversified crops supervisor present (Melina Hoang MS 3). Constitutional: General: [...] Varun Veliz DO documented in this encounter [facility] 04-27-2024 History of Present illness Narrative Patient Name: Caryn Guzman Date of : 1945 Date of Service: 04/27/2024 Facility: [facility] Type of Visit: Skilled Visit Subjective Caryn Guzman is a 78 y.o. female seen today at group home facility for therapy visit. Adrienne was seen [...] Exam Vitals reviewed. Exam conducted with a diversified crops supervisor present (Melina Hoang MS 3). Constitutional: General: [...] Varun Veliz DO documented in this encounter [facility] System Evaluation note Diagnosis Chronic obstructive pulmonary disease, unspecified COPD type (CMS-HCC)- Primary Acute respiratory failure with hypoxia ([facility]) Closed nondisplaced fracture of greater trochanter of left femur with routine healing Essential hypertension Unspecified essential hypertension [facility] Diagnosis Chronic obstructive pulmonary disease, unspecified COPD type ([facility])- Primary [facility] Diagnosis Acute respiratory failure with hypoxia ([facility])- Primary Chronic obstructive pulmonary disease, unspecified COPD type ([facility]) Pneumonia due to infectious organism, unspecified laterality, unspecified part of lung Essential hypertension Unspecified essential hypertension Class 1 obesity due to excess calories with serious comorbidity and body mass index (BMI) of 30.0 to 30.9 in adult Hypertensive kidney disease with stage 3b chronic kidney disease ([facility]) documented in this encounter [facility] SystemEvaluation note* Diagnosis Chronic gout without tophus, unspecified cause, unspecified site [facility] Diagnosis Hypertensive kidney disease with stage 3b chronic kidney disease ([facility] Primary Pain of right hand Hyperlipidemia, unspecified hyperlipidemia type Bilateral hearing loss, unspecified hearing loss type Chronic obstructive pulmonary disease, unspecified COPD type ([facility]) Chronic bilateral low back pain without sciatica documented in this encounter [facility] SystemEvaluation note* Diagnosis Hyperlipidemia, unspecified documented in this encounter [facility] note* Diagnosis Medicare annual wellness visit, subsequent- Primary Screening for depression documented in this encounter [facility] System[facility]ructionsNot on filedocumented in this encounter [...] CREATED AUTHOR AUTHOR'S ORGANIZ ATION 08/02/2022 [facility] DATE CREATED AUTHOR AUTHOR'S ORGANIZ ATION 12/17/2023 [facility] DATE CREATED AUTHOR AUTHOR'S ORGANIZ ATION 12/11/2024 [facility] Care Teams (unrecognized sec tion and content) Speech/Language Therapist Relationship Specialty Start Date End Date Jose Alfredo Varun Comer DO [address] [place] [address] PCP - General Family Medicine 01/25/22 Speech/Language Therapist Relationship Specialty Start Date End Date Adryan Velizyefri ComerDO [address] [place] [address] PCP - General Family Medicine 01/25/22 Speech/Language Therapist Relationship Specialty Start Date End Date Varun Veliz DO [address] [place] [address] PCP - General Family Medicine 01/25/22 Speech/Language Therapist Relationship Specialty Start Date End Date Varun Veliz NahomiDO [address] [place] [address] PCP - General Family Medicine 01/25/22 Speech/Language Therapist Relationship Specialty Start Date End Date Varun Veliz DO [address] [place] [address] PCP - General Family Medicine 01/25/22 Speech/Language Therapist Relationship Specialty Start Date End Date Varun Veliz DO [address] [place] [address] PCP - General Family Medicine 01/25/22 Speech/Language Therapist Relationship Specialty Start Date End Date Varun Veliz DO [address], [place] [address] PCP - General Family Medicine 01/25/22 Speech/Language Therapist Relationship Specialty Start Date End Date Varun Veliz DO [address], [place] [address] PCP - General Family Medicine 01/25/22 Reason [...] BE BASED ON THE PRIMARY CLINICAL RECORDS. [facility]. provides no warranty or guarantee of the accuracy or completeness of information in this document.
[2025-01-25] MEDS: FUROSEMIDE 400 MG in 0.9 % SODIUM CHLORIDE 160 ML IV (21:36)
[2025-01-25] MEDS: ENOXAPARIN SODIUM 40 MG/0.4 ML SYRINGE SUBQ (21:46)
[2025-01-25] MEDS: ATORVASTATIN CALCIUM 10 MG TABLET PO (21:46)
[2025-01-25 22:15] LABS: Anion Gap 8.3; Blood Urea Nitrogen 29.0 mg/dL (7.0-18.0); Calcium 8.4 mg/dL (8.5-10.1); Carbon Dioxide 35.4 mmol/L (21.0-32.0); Chloride 106 mmol/L (98-107); Estimated GFR (African America 42 (>=60 mL/min/1.73m^2); Estimated GFR (Non-African Ame 34 (>=60 mL/min/1.73m^2); Glucose 158 mg/dL (74-106); Potassium 4.7 mmol/L (3.5-5.1); Sodium 145 mmol/L (136-145)
[2025-01-26] VITALS (76 sets, daily range): BP systolic 110–142; BP diastolic 67–95; PULSE 73–118; TEMP 36.5–37.1; O2SAT 78–98
[2025-01-26 05:49] LABS: Hematocrit 53.4 % (36.0-48.0); Hemoglobin 16.2 g/dL (12.0-16.0); Immature Granulocytes Abs Auto 0.06 10^3/uL (0.00-0.03); Immature Granulocytes Pct Auto 1.4 % (0.0-0.5); Lymphocytes Absolute Auto 0.6 10^3/uL (1.2-3.8); Mean Corpuscular HGB Conc 30.3 g/dL (29.9-35.2); Mean Corpuscular Hemoglobin 31.3 pg (26.7-34.0); Mean Corpuscular Volume 103.3 fL (81.0-99.0); Platelet Count 136 10^3/uL (150-450); Red Blood Count 5.17 10^6/uL (4.20-5.40); White Blood Count 4.3 10^3/uL (4.0-11.0)
[2025-01-26 06:12] LABS: Anion Gap 7.4; Blood Urea Nitrogen 29.0 mg/dL (7.0-18.0); Calcium 8.4 mg/dL (8.5-10.1); Carbon Dioxide 37.6 mmol/L (21.0-32.0); Chloride 103 mmol/L (98-107); Cholesterol 102 mg/dL (<=200); Estimated GFR (African America 41 (>=60 mL/min/1.73m^2); Estimated GFR (Non-African Ame 34 (>=60 mL/min/1.73m^2); Glucose 129 mg/dL (74-106); HDL Cholesterol 41 mg/dL (40-60); Magnesium 1.8 mg/dL (1.8-2.4); Potassium 5.0 mmol/L (3.5-5.1); Sodium 143 mmol/L (136-145); Triglycerides 50 mg/dL (<=150); VLDL CHOLESTEROL 10.0 mg/dL
--- NOTE | 2025-01-26 08:00 | ECG_ITS ---
The [facility] Test Date: 2025-01-26 Pat Name: KENTON EATON Department: Room: [facility] Gender: Female Collision Estimator: : 1945 Requested By: [id number] Order Number: [id number] Reading MD: Alonso Mack Measurements Intervals Elmer Rate: 80 P: 52 NV: 224 QRS: 104 QRSD: 88 T: -13 QT: 336 QTc: 373 Interpretive Statements 1100 Sinus rhythm 2231 First degree AV block 4068 Nonspecific Twave abnormality 6220 Possible left atrial enlargement 7100 Abnormal right axis deviation 9150 abnormal ECG Compared to ECG 01/25/2025 15:50:09 No significant changes Electronically Signed On 01-26-2025 12:36:51 EDT by Alonso Mack
--- NOTE | 2025-01-26 08:25 | CM.NOTE ---
Rounds made with Dr. Sahu, discussed with pt plan of care and reason for admission. Pt continues to require vapotherm. No discharge today, pt is inpatient status.
--- NOTE | 2025-01-26 09:21 | PM.PN ---
Progress Note: Subjective Subjective Interval history: Patient is feeling better. She continues to require high flow oxygen. 40 L, 60%. Saturation 97%. No chest pain. No abdominal pain. No nausea or vomiting. Exam Narrative Exam Narrative: Patient is in mild respiratory distress. Respiratory is about 22. Patient is on BiPAP. Pale skin and buccal mucosa. Positive for JVD. Chest exam revealed bilateral crackles. Heart is regular and tachycardic. Abdomen soft. +2 pitting edema in both legs significant pitting component. Cognitive impairment. Patient is unable to hear me due to hearing loss, Able to lift upper arms and legs against gravity. She needs assist stand up and walk Constitutional Vital Signs, click to edit/add: Last Vital Signs Temp 98.7 F 01/26/25 04:00 Pulse 75 01/26/25 08:00 Resp 14 01/26/25 04:00 BP 123/70 01/26/25 04:00 Pulse Ox 94 L 01/26/25 05:05 O2 Del Method Vapotherm 01/26/25 05:05 O2 Flow Rate 40 01/26/25 05:05 FiO2 60 01/26/25 05:05 Progress Note: Objective Labs Labs: Short CBC 01/25/25 01/26/25 Range/Units 14:35 05:43 WBC 5.9 4.3 (4.0-11.0) 10^3/uL Hgb 15.1 16.2 H (12.0-16.0) g/dL Hct 51.2 H 53.4 H (36.0-48.0) % Plt Count 152 136 L (150-450) 10^3/uL BMP 01/25/25 01/25/25 01/26/25 14:35 21:35 05:43 Sodium 144 145 143 Potassium 5.0 4.7 5.0 Chloride 106 106 103 Carbon Dioxide 34.7 H 35.4 H 37.6 H BUN 28.0 H 29.0 H 29.0 H Creatinine 1.60 H 1.47 H 1.48 H Glucose 112 H 158 H 129 H Calcium 8.6 8.4 L 8.4 L Liver Function 01/25/25 Range/Units 14:35 Total Bilirubin 0.4 (0.2-1.0) mg/dL AST 23 (15-37) U/L ALT 19 (14-59) U/L Alkaline Phosphatase 86 (46-116) U/L Albumin 3.2 L (3.4-5.0) g/dL Urine 01/25/25 Range/Units 16:28 Urine Color Yellow (YELLOW) Urine Clarity Clear (CLEAR) Urine pH 6.0 (5.0-9.0) Ur Specific [place] 1.025 (1.005-1.025) Urine Protein 100 A (NEG/TRACE) mg/dL Urine Glucose (UA) >=1000 A (NEGATIVE) mg/dL Progress Note: A&P Assessment and Plan (1) Pulmonary edema with congestive heart failure: (2) Acute congestive heart failure: (3) Acute kidney failure: (4) COPD (chronic obstructive pulmonary disease): (5) Hypercapnia: (6) Cognitive attention deficit: (7) Impaired functional mobility and activity tolerance: Plan Acute diastolic heart failure, probable systolic heart failure. Echo completed in April 2024 showed positive diastolic dysfunction, preserved EF. COPD with hypoxic and hypercapnic respiratory failure Pulmonary hypertension. Right ventricular pressure was 55. Acute respiratory failure secondary to above I have accepted to admit patient to the stepdown unit. I would start patient on Lasix drip. So far she is 1.5 L negative balance Input and output measurement. Echocardiogram is pending. Blood pressure control. High flow oxygen, 40 L, 60% with titration to keep saturation above 92% May need coronary evaluation. No clinical evidence of ACS. Troponin is negative. Lower extremities ultrasound rule out DVT. Negative for DVT. BALDO, CKD. Likely secondary to heart failure and cardiorenal syndrome. Started patient on Lasix drip. Kidney function is at baseline which is consistent with stage III Cognitive loss, hearing loss I suspect that the patient may have a degree of neurodegenerative disorder, probable vascular dementia. Near baseline according to her stepdaughter. Functional loss. Patient uses a walker and a cane at home as reported by her stepdaughter. Functional impairment is exaggerated by significant lower extremities edema. As well as osteoarthritis deformities. PT OT eval and treatment May require short-term skilled care. Diabetes, probable, on . Check A1c. This came back at 5.7. Patient may not have diabetes. Continue sliding scale for now Chronic medical conditions not listed above, incidental findings seen on labs and imaging. These would need to be addressed. Could be addressed when time and condition are appropriate. Could be addressed in the outpatient setting by PCP collaboration with other needed outpatient providers. Urinary Catheter Management Urinary Catheter Management Urethral: Cath placed during this visit: yes Urethral indwelling: No Insertion date: 01/25/25 Insertion time: 16:33
[2025-01-26] MEDS: ALLOPURINOL 100 MG TABLET PO (09:25)
[2025-01-26] MEDS: PNEUMOC 20-VAL CONJ-DIP CRM/PF 0.5 ML SYRINGE IM (09:26)
[2025-01-26] MEDS: CALCIUM ACETATE 667 MG CAPSULE 1334 MG PO ×2 (11:41→16:00)
--- NOTE | 2025-01-26 14:17 | SWNOTE1 ---
Important Message from Medicare reviewed and discussed with patient. Pt. verbalized understanding and signed the form. Original given to patient and copy placed in patient?s chart.
--- NOTE | 2025-01-26 14:17 | SWNOTE1 ---
LUÍS met with pt to discuss dc needs. Pt knows she is at [facility], knows it is Friday, and knows it is January. Pt lives at home with her son and sister. She helps care for her sister at home. She voiced her son is there all the time and her step daughter comes in to the home as well to assist. She washes herself up at home and uses a walker to get around. She does not have any services coming in at this time. Pt previously was at [facility] for rehab, she thinks a few months ago. She voiced she did get stronger. SW let her know that SW will review therapy notes and it is possible they may recommend SNF again. Pt voiced she did not like the food at [facility]. LUÍS advised that SW will bring in a list of facilties from Medicare.gov to review if SNF is recommended. LUÍS also asked permission to call her family? Pt is alright with this. LUÍS can call Shaunna (step daughter) or Aung (son). LUÍS reviewed pt's chart and pt completed HCPOA and Aung is her POA. LUÍS also reviewed therapy notes and SNF is recommended.
--- NOTE | 2025-01-26 14:47 | SWNOTE1 ---
SW stopped back in and spoke with pt about recommendations of rehab. SW expressed to pt that at this time for pt's safety rehab is being recommended. SW let her know it would help build her strength up. SW also let pt know she does not have to return to [facility]. SW provided pt with list from Medicare.gov. Pt stated she is not really sure about going to rehab at this time. SW again encouraged pt that it would only be short term like last time and it would help her get stronger. Pt still unsure and would like to think about it. LUÍS asked permission to call her son and step daughter. Pt is in agreement for LUÍS to call Aung and Shaunna. SW called Shaunna and left her a message. SW called and spoke to her son Aung. SW let him know that rehab is recommended and that pt is going to think about it. SW advised it would only be short term. Aung voiced understanding and appreciated the update. SW let him know that SW left Shaunna a message as well. LUÍS also let Aung know that she does not have to return to the facility in [place], can be a different facility.
--- NOTE | 2025-01-26 15:03 | SWNOTE1 ---
SW did receive a call back from pt's step daughter, Shaunna. Shaunna and LUÍS spoke about recommendations or SNF for rehab for short time. Shaunna voiced that prior to pt filling up with fluid, she was doing pretty well at home and ambulating with walker. She did speak with physician yesterday and they are trying to get the fluid off of her and it could take a few days. She stated once the fluid is off, pt will likely be feeling better and will be able to get around better. She is uncertain if pt will need rehab, but not ruling it out. She would like to see how pt does within the next day or 2. SW did let her know that pt's insurance does sometimes take a few days to get approval and it may be beneficial that we do plan A and plan B. Plan A would be home health and plan B would be SNF. Shaunna did ask if her insurance covers SNF. LUÍS explained that her insurance would approve for a few days and the nursing facility would send updates to try and get more days. Eventually the insurance would cut her. Shaunna is familiar with home health and she voiced she would make sure the days that HH does not come in, she would make her do exercises. Shaunna voiced she checks on pt daily at home. At this time no plans for SNF have been made and Shaunna plans on coming to the hospital tomorrow morning. SW to follow.
--- NOTE | 2025-01-26 17:33 | CA_ITS ---
Patient Name: KENTON EATON MR#: [id number] : 1945 Exam Date: 01/26/2025 Ordering Doctor: ERIC HEATON ECHOCARDIOGRAM REPORT PROCEDURE: CA ECHO DOPPLER COMPLETE INDICATIONS: CHF COMPARISON: None. DESCRIPTION: COMPLETE ECHOCARDIOGRAM Real-time transthoracic echocardiography with 2D, M-mode, spectral and color flow Doppler performed. QUALITY: Technical quality was adequate. LEFT VENTRICLE: Normal chamber size. Thickened septal wall. LV EF: Global left ventricular systolic function is at lower normal limits: visually estimated ejection fraction is 50%. D-shaped septum consistent with right ventricular pressure and/or volume overload. DIASTOLIC: Grade II diastolic dysfunction. ATRIAL SEPTUM: Inadequately seen. LEFT ATRIUM: Mild dilatation. RIGHT ATRIUM: Moderate dilation. RIGHT VENTRICLE: Severe dilatation. Decreased right ventricular systolic function. TRICUSPID VALVE: Normal mobility and thickness. Moderate to severe regurgitation. Moderate pulmonary hypertension. RVSP 50mmHg. MITRAL VALVE: Normal mobility and thickness. No evidence of mitral valve stenosis. Mild mitral annular calcification. Trivial mitral regurgitation. AORTIC VALVE: Normal trileaflet appearance. Mildly calcified aortic valve. Normal leaflet mobility. No evidence of aortic valve stenosis. No aortic regurgitation. AORTIC ROOT: Normal diameter and appearance. Measuring 3.5cm. The ascending aorta measures 3.1cm. PULMONIC VALVE: Normal thickness and mobility. No stenosis. Trivial regurgitation. PERICARDIUM: No evidence of pericardial effusion. IVC: Mild dilatation. Measuring 2.3cm with no collapse. CONCLUSION: 1. Global left ventricular systolic function is lower normal limits; visually estimated ejection fraction is 50% 2. D-shaped septum consistent with right ventricular pressure and/or volume overload 3. The right ventricle is severely dilated with reduced systolic function 4. Biatrial dilatation 5. Grade 2 diastolic dysfunction 6. Moderate to severe tricuspid regurgitation 7. Moderately elevated right ventricular systolic pressure; RVSP 50 mmHg Adult Echocardiography Procedure Report Left Ventricle LVEDD (3.7 - 5.6 cm): 4.08 cm LVESD (2.2 - 4.0 cm): 3.09 cm LVIVS thickness (0.6 - 1.2 cm): 1.70 cm LVPW thickness (0.5 - 1.0 cm): 1.46 cm LVOT Max Gradient: 3 mm[Hg] Peak Velocity (LVOT): 88.00 cm/s Mean Velocity (LVOT): 59.80 cm/s LVOT Diameter 2.30 cm Left Ventricular Ejection Fraction: 48.80 % Left Atrium LA Volume Index (2D A2C): 25563 mm3 Left Atrium Systolic Dimension: 3.00 cm Mitral Valve MV E to A Ratio: 0.60 Mitral Valve A-Wave Peak Velocity: 92.80 cm/s Mitral Valve E-Wave Peak Velocity: 60.20 cm/s Cardiovascular Orifice Area: 3.73 cm2 Right Ventricle Aorta AO Root Diam: 3.50 cm Aortic Valve AoV Area (Peak Diogo): 2.81 cm2 AoV Area (VTI): 3.15 cm2 Peak Velocity(Antegrade Flow): 130.00 cm/s Peak Gradient(Antegrade Flow): 7 mm[Hg] Mean Velocity(Antegrade Flow): 92.20 cm/s Mean Gradient(Antegrade Flow): 4 mm[Hg] Velocity Time Integral: 23.20 cm Tricuspid Valve Peak Velocity (Regurgitant Flow): 297.00 cm/s Pulmonic Valve Peak Velocity: 76.00 cm/s, 84.20 cm/s Peak Gradient: 3 mm[Hg] Right Atrium Dictated by: Vignesh Howard M.D. on 01/26/2025 at 12:38 Approved by: Vignesh Howard M.D. on 01/26/2025 at 12:43
[2025-01-26 20:11] LABS: Anion Gap 4.0; Blood Urea Nitrogen 32.0 mg/dL (7.0-18.0); Calcium 8.4 mg/dL (8.5-10.1); Carbon Dioxide 44.4 mmol/L (21.0-32.0); Chloride 99 mmol/L (98-107); Estimated GFR (African America 34 (>=60 mL/min/1.73m^2); Estimated GFR (Non-African Ame 28 (>=60 mL/min/1.73m^2); Glucose 107 mg/dL (74-106); Potassium 4.4 mmol/L (3.5-5.1); Sodium 143 mmol/L (136-145)
[2025-01-26] MEDS: ENOXAPARIN SODIUM 30 MG/0.3 ML SYRINGE SUBQ (22:47)
[2025-01-26] MEDS: ATORVASTATIN CALCIUM 10 MG TABLET PO (22:47)
[2025-01-27] VITALS (58 sets, daily range): BP systolic 101–160; BP diastolic 61–82; PULSE 71–259; TEMP 36.3–36.9; O2SAT 85–95
[2025-01-27] MEDS: ACETAMINOPHEN 325 MG TABLET 650 MG PO (03:21)
[2025-01-27 06:00] LABS: Anion Gap 2.3; Blood Urea Nitrogen 36.0 mg/dL (7.0-18.0); Calcium 8.6 mg/dL (8.5-10.1); Carbon Dioxide 45.9 mmol/L (21.0-32.0); Chloride 98 mmol/L (98-107); Estimated GFR (African America 36 (>=60 mL/min/1.73m^2); Estimated GFR (Non-African Ame 30 (>=60 mL/min/1.73m^2); Glucose 92 mg/dL (74-106); Potassium 4.2 mmol/L (3.5-5.1); Sodium 142 mmol/L (136-145)
[2025-01-27 06:19] LABS: NT Pro B Type Natriuretic Pept 6940.0 pg/mL (<=1800.0)
--- NOTE | 2025-01-27 07:00 | XR_ITS ---
The [address] [address] Patient Name: KENTON EATON MRN: [id number] date: 1945 Sex: F Assigned Patient Location: [place] Current Patient Location: [place] Accession/Order Number: [id number] Exam Date: 01/27/2025 06:00 Report Date: 01/27/2025 08:34 At the request of: ERIC HEATON MD Procedure: XR chest 1V PORTABLE AP ERECT CHEST 0542 hours CLINICAL HISTORY: CHF comparison to last CXR COMPARISON: 01/25/2025 There is shallow inspiration. The cardiac and mediastinal contours are similar. The perihilar vascular prominence on the prior has essentially resolved. There is mild atelectasis and/or scarring at the right base. Although there are multiple overlying chest leads, pleural parenchymal change at the left base is still suspected. No pneumothorax is seen. The bony structures are osteopenic. XR/XR chest 1V IMPRESSION: RESOLVED FAILURE. CONTINUED BIBASILAR PARENCHYMAL CHANGE, GREATER ON THE LEFT WHERE PLEURAL EFFUSION IS NOT EXCLUDED. Impression dictated by: Chelsie Langford M.D. 01/27/2025 8:34 AM Dictation Location: [place] [address] Electronically authenticated by: [id number] Y Date: 01/27/2025 08:34
--- NOTE | 2025-01-27 08:05 | CM.NOTE ---
Rounds made with Dr. Sahu, discussed plan of care [facility] pt. Pt remains on vapotherm, RN will attempt to wean oxygen as tolerated.
[2025-01-27] MEDS: ALLOPURINOL 100 MG TABLET PO (09:17)
[2025-01-27] MEDS: CALCIUM ACETATE 667 MG CAPSULE 1334 MG PO ×3 (09:17→16:12)
--- NOTE | 2025-01-27 10:45 | PM.PN ---
Progress Note: Subjective Subjective Interval history: Patient is feeling better. She continues to require high flow oxygen. 40 L, 40%. Saturation 97%. No chest pain. No abdominal pain. No nausea or vomiting. Exam Narrative Exam Narrative: Patient is in mild respiratory distress. Respiratory is about 16. Patient is on BiPAP. Pale skin and buccal mucosa. Positive for JVD. Chest exam resolution of the bilateral crackles. Heart is regular and tachycardic. Abdomen soft. +2 pitting edema in both legs significant pitting component. Cognitive impairment. Patient is unable to hear me due to hearing loss, Able to lift upper arms and legs against gravity. She needs assist stand up and walk Constitutional Vital Signs, click to edit/add: Last Vital Signs Temp 97.6 F 01/27/25 08:29 Pulse 71 01/27/25 10:01 Resp 18 01/27/25 10:01 BP 122/66 01/27/25 10:01 Pulse Ox 91 L 01/27/25 10:01 O2 Del Method Vapotherm 01/27/25 08:29 O2 Flow Rate 40 01/27/25 06:25 FiO2 45 01/27/25 06:25 Progress Note: Objective Labs Labs: BMP 01/26/25 01/27/25 19:52 05:24 Sodium 143 142 Potassium 4.4 4.2 Chloride 99 98 Carbon Dioxide 44.4 H 45.9 H BUN 32.0 H 36.0 H Creatinine 1.76 H 1.66 H Glucose 107 H 92 Calcium 8.4 L 8.6 Progress Note: A&P Assessment and Plan (1) Pulmonary edema with congestive heart failure: (2) Acute congestive heart failure: (3) Acute kidney failure: (4) COPD (chronic obstructive pulmonary disease): (5) Hypercapnia: (6) Cognitive attention deficit: (7) Impaired functional mobility and activity tolerance: Plan Acute diastolic heart failure, probable systolic heart failure. Echo completed in April 2024 showed positive diastolic dysfunction, preserved EF. COPD with hypoxic and hypercapnic respiratory failure Pulmonary hypertension. Right ventricular pressure was 55. Acute respiratory failure secondary to above requiring high flow oxygen, 40 L, 80%. Currently down to 40 L, 40%. I have accepted to admit patient to the stepdown unit. I would start patient on Lasix drip. So far she is 7 L negative balance Continue input and output measurement. Continue blood pressure control. Follow-up chest x-ray showed resolution of interstitial edema. Follow-up BNP showed significant reduction in BNP level Discontinued Lasix drip and started on Lasix 20 mg every 8 hours. BALDO, CKD. Likely secondary to heart failure and cardiorenal syndrome. Continue diuretics. Discontinued drip and started on every 8 hours 20 mg injection. Kidney function is at baseline which is consistent with stage III Cognitive loss, hearing loss I suspect that the patient may have a degree of neurodegenerative disorder, probable vascular dementia. Near baseline according to her stepdaughter. Functional loss. Patient uses a walker and a cane at home as reported by her stepdaughter. Functional impairment is exaggerated by significant lower extremities edema. As well as osteoarthritis deformities. PT OT eval and treatment May require short-term skilled care. Family declined arrangement for skilled understanding potential risk and implication. Family requested discharge home with home health care Diabetes, probable, on . Check A1c. This came back at 5.7. Patient may not have diabetes. Continue sliding scale for now Chronic medical conditions not listed above, incidental findings seen on labs and imaging. These would need to be addressed. Could be addressed when time and condition are appropriate. Could be addressed in the outpatient setting by PCP collaboration with other needed outpatient providers. I discussed her case with evelyn at the bedside. Urinary Catheter Management Urinary Catheter Management Urethral: Cath placed during this visit: yes Urethral indwelling: No Insertion date: 01/25/25 Insertion time: 16:33
[2025-01-27] MEDS: NEOMYCIN TOPICAL ×2 (11:08→20:13)
[2025-01-27] MEDS: POLYMYXIN B TOPICAL ×2 (11:08→20:13)
[2025-01-27] MEDS: BACITRACIN TOPICAL ×2 (11:08→20:13)
[2025-01-27] MEDS: FUROSEMIDE 20 MG/2 ML VIAL IVP ×2 (11:09→20:13)
--- NOTE | 2025-01-27 12:19 | SWNOTE1 ---
SW stopped in to see pt. Pt was sitting in chair and has vapotherm on. Pt voiced she was happy because she did not have to use the bed gauthier and could use bedside commode. She voiced she is feeling alright. She stated she can't wait to get home and wash her hair. SW advised that nursing can assist with showering her here as well. She voiced understanding. Pt stated her goal is to go home at discharge. SW to continue to check on pt daily. Pt is a precert if she needs skilled at discharge.
--- NOTE | 2025-01-27 13:20 | REH.PTDLY ---
Physical Therapy Daily Note PT Daily Note/Assess Start: 01/27/25 13:08 Freq: Status: Active Protocol: Document 01/27/25 13:09 ESTEPHANIE (Rec: 01/27/25 13:20 [id number] Physical Therapy Daily Note/Assessment Time In 12:15 Time Out 12:36 Subjective Pt up in chair upon arrival, on vapotherm. Reports R knee pain with certain movements or to the touch. Pt has swelling in Jesse LEs. Pt hard of hearing with noise of vapotherm. Therapeutic Exercise 9 Minutes (minutes) Therapeutic Exercise 1 Units Therapeutic Exercise Instructed in B LE exs with feet elevated in chair Treatment including AP, heel slides abd slides and SLR within small ROM 10x ea . Cues for QS, but pt does not comprehend. Pt winces at time with palpation to LEs. With feet lowered in chair instructed in B LE LAQ, marching, hip abd and hip add 10x ea. Therapeutic Activity 7 Minutes (minutes) Therapeutic Activity 0 Units Therapeutic Activity Sit to stand transfers Min A while on vapotherm, taking Comments 5 steps forward and retro. Pt completed this sequence 2 times. SpO2 fluctuates between 88-91% during rx. Pt denies having an increase in SOB, however pt is pursed lip breathing with activity. Total Therapy 16 Minutes Total Physical 1 Therapy Units Daily Note Summary Pt has pain in R knee with exs, however does not complain of pain when standing or taking steps. Pt on vapotherm so gait and activity tolerance is limited. Continue to progress pt as she is able.
[2025-01-27] MEDS: ENOXAPARIN SODIUM 30 MG/0.3 ML SYRINGE SUBQ (21:16)
[2025-01-27] MEDS: ATORVASTATIN CALCIUM 10 MG TABLET PO (21:17)
[2025-01-28] VITALS (59 sets, daily range): BP systolic 115–139; BP diastolic 62–117; PULSE 66–122; TEMP 36.6–37.1; O2SAT 88–96
[2025-01-28] MEDS: ACETAMINOPHEN 325 MG TABLET 650 MG PO (00:29)
[2025-01-28] MEDS: FUROSEMIDE 20 MG/2 ML VIAL IVP (04:27)
[2025-01-28 06:07] LABS: Anion Gap 0.2; Blood Urea Nitrogen 33.0 mg/dL (7.0-18.0); Calcium 8.9 mg/dL (8.5-10.1); Carbon Dioxide 51.0 mmol/L (21.0-32.0); Chloride 90 mmol/L (98-107); Estimated GFR (African America 38 (>=60 mL/min/1.73m^2); Estimated GFR (Non-African Ame 32 (>=60 mL/min/1.73m^2); Glucose 94 mg/dL (74-106); Potassium 3.2 mmol/L (3.5-5.1); Sodium 138 mmol/L (136-145)
[2025-01-28] MEDS: BACITRACIN TOPICAL ×2 (08:03→22:04)
[2025-01-28] MEDS: ALLOPURINOL 100 MG TABLET PO (08:03)
[2025-01-28] MEDS: NEOMYCIN TOPICAL ×2 (08:03→22:04)
[2025-01-28] MEDS: POTASSIUM CHLORIDE 10 MEQ ER TABLET 20 MEQ PO (08:03)
[2025-01-28] MEDS: CALCIUM ACETATE 667 MG CAPSULE 1334 MG PO (08:03)
[2025-01-28] MEDS: POLYMYXIN B TOPICAL ×2 (08:03→22:04)
--- NOTE | 2025-01-28 08:20 | CM.NOTE ---
Rounds made with Dr. Sahu, pt continues to require Vapotherm. RN will attempt weaning today again. CM or SW will discuss discharge planning with pt and family again today. Pt continues with weakness and oxygen requirements.
--- NOTE | 2025-01-28 08:46 | CM.NOTE ---
2nd Important Message from Medicare discussed with pt, denies questions or concerns.
--- NOTE | 2025-01-28 10:25 | PM.PN ---
Progress Note: Subjective Subjective Interval history: Patient is feeling better. She continues to require high flow oxygen. 40 L, 60%. Saturation 97%. No chest pain. No abdominal pain. No nausea or vomiting. Exam Constitutional Vital Signs, click to edit/add: Last Vital Signs Temp 98 F 01/28/25 07:45 Pulse 87 01/28/25 07:59 Resp 20 01/28/25 07:45 BP 115/73 01/28/25 07:45 Pulse Ox 94 L 01/28/25 09:45 O2 Del Method Vapotherm 01/28/25 09:45 O2 Flow Rate 40 01/28/25 09:45 FiO2 65 01/28/25 09:45 Progress Note: Objective Labs Labs: BMP 01/28/25 05:15 Sodium 138 Potassium 3.2 L Chloride 90 L Carbon Dioxide 51.0 H BUN 33.0 H Creatinine 1.58 H Glucose 94 Calcium 8.9 Progress Note: A&P Assessment and Plan (1) Pulmonary edema with congestive heart failure: (2) Acute congestive heart failure: (3) Acute kidney failure: (4) COPD (chronic obstructive pulmonary disease): (5) Hypercapnia: (6) Cognitive attention deficit: (7) Impaired functional mobility and activity tolerance: Plan Acute diastolic heart failure, probable systolic heart failure. Repeat echocardiogram showed preserved ejection fraction. Positive for pulmonary hypertension. RVSP is 50. Positive for diastolic heart failure as well. COPD with hypoxic and hypercapnic respiratory failure Pulmonary hypertension. Right ventricular pressure was 55. Acute respiratory failure secondary to above requiring high flow oxygen, 40 L, 80%. Currently down to 40 L, 40%. I have accepted to admit patient to the stepdown unit. I would start patient on Lasix drip. So far she is 10 L negative balance Continue input and output measurement. Continue blood pressure control. Follow-up chest x-ray showed resolution of interstitial edema. Follow-up BNP showed significant reduction in BNP level Her bicarb is climbing up. Discontinue diuretics. Consideration to use as torsemide. Persistent hypoxemia requiring continuation of high flow oxygen. The possibility of PE is less likely but not 100% excluded. CTA potentially could cause acute nephropathy given her CKD. Consideration for VQ scan. Venous ultrasound the legs are negative for DVT. Start patient on albuterol, Atrovent and Decadron hopefully that will improve her obstructive acute process if any BALDO, CKD. Likely secondary to heart failure and cardiorenal syndrome. Continue diuretics. Discontinued drip and started on every 8 hours 20 mg injection. Kidney function is at baseline which is consistent with stage III Cognitive loss, hearing loss I suspect that the patient may have a degree of neurodegenerative disorder, probable vascular dementia. Near baseline according to her stepdaughter. Functional loss. Patient uses a walker and a cane at home as reported by her stepdaughter. Functional impairment is exaggerated by significant lower extremities edema. As well as osteoarthritis deformities. PT OT eval and treatment May require short-term skilled care. Family declined arrangement for skilled understanding potential risk and implication. Family requested discharge home with home health care Diabetes, probable, on . Check A1c. This came back at 5.7. Patient may not have diabetes. Continue sliding scale for now Chronic medical conditions not listed above, incidental findings seen on labs and imaging. These would need to be addressed. Could be addressed when time and condition are appropriate. Could be addressed in the outpatient setting by PCP collaboration with other needed outpatient providers. I discussed her case with randidarachel at the bedside. Urinary Catheter Management Urinary Catheter Management Urethral: Cath placed during this visit: yes Urethral indwelling: No Insertion date: 01/25/25 Insertion time: 16:33
--- NOTE | 2025-01-28 10:27 | SWNOTE1 ---
SW stopped in and spoke with pt. SW explained to pt that there is a possibility that she will need rehab at discharge for a short time to get stronger. SW explained that she may get to a point where she is medically stable for discharge from hospital, but not strong enough to return home and need some therapy. Pt voiced understanding and is alright with having a plan in place in case she needs rehab. She is unsure of which facility, just does not want to go back to [facility]. SW asked if we should call her step daughter, Shaunna. Pt in agreement. Physical therapy came in room to work with pt. SW called Shaunna in room while pt worked with PT. Nurse came in room as well. LUÍS explained to Shaunna that we need to have a plan in place in case pt gets to a point where she is medically stable for discharge from hospital, but still needs therapy and needs to transition to SNF for a short time. Shaunna did express that her goal is to get pt better and then possibly home with home health. The absolute last resort is going to SNF. She stated it is depressing for pt and concerns for her mental state if she goes to SNF. SW did voice understanding and let Shaunna know she is not ready for discharge today, but we need to get a plan in place in case she needs SNF at discharge. LUÍS explained pt is a precert and the insurance does usually take a few days to approve. She did voiced understanding. SW did let her know the facilities in the area that accept her insurance. She is going to make some calls to friends and will call SW back and let her know facility of choice.
--- NOTE | 2025-01-28 10:28 | NM_ITS ---
The [address] [address] Patient Name: KENTON EATON MRN: [id number] date: 1945 Sex: F Assigned Patient Location: Current Patient Location: Accession/Order Number: [id number] Exam Date: 01/28/2025 13:00 Report Date: 01/28/2025 17:06 At the request of: ERIC HEATON MD Procedure: NM pul vent and perfuse NM pul vent and perfuse 01/28/2025 2:34 PM SIGNS AND SYMPTOMS: Hypoxemia r/ PE PROTOCOL: Hypoxia, rule out PE COMPARISON: Chest radiograph from the same date. RADIOPHARMACEUTICAL: 5.7 mCi of intravenous technetium 99m MAA and 25.6 mCi of technetium 99m aerosol FINDINGS: There is a matched segmental perfusion and ventilation defect in the right upper lobe. There are a few matched subsegmental defects in the left upper lobe. No mismatch defects are noted. NM/NM pul vent and perfuse IMPRESSION: Matched ventilation and perfusion segmental and subsegmental defects in the right upper and left upper lobes without radiographic correlate. Low to intermediate probability of pulmonary embolism. Impression dictated by: Boni Silva M.D. 01/28/2025 5:06 PM Dictation Location: [place] [address] Electronically authenticated by: [id number] Y Date: 01/28/2025 17:06
[2025-01-28] MEDS: DEXAMETHASONE SOD PHOS 4 MG/ML VIAL IV ×2 (10:35→22:05)
--- NOTE | 2025-01-28 12:14 | SWNOTE1 ---
SW received a call back from Shaunna, pt's step daughter, and she spoke to friends and pt's daughter and the very last resort would be [facility]. Shaunna voiced very strongly pt going skilled to [facility] is the very last option. First choice would be for her to return home, next choice is home health. She wants SW to look in to HH. LUÍS advised that SW can get HH set up the same day of discharge with no issues. She again expressed that pt is bull headed and determined and Shaunna voiced she really wants her to be able to return home. Shaunna is aware of skilled and home health differences. LUÍS did express to Shaunna that SW was in room while PT worked with pt and she did have some trouble standing up and transitioning to chair. Shaunna voiced as more fluid comes off, hopeful she will ambulate better. Shaunna also stated that she would like to be called with any updates over the weekend in regards to discharge. She wants to be notified if she is discharging to [facility]. LUÍS assured her that someone will call her and LUÍS will document in chart as well. At this time Shaunna is alright with LUÍS sending referral to [facility] for a last resort at discharge. Pt is in agreement as well. Referral sent to [facility]. Referral included face sheet, ED note, H&P, provider notes, case management report, nursing notes, diagnostic imaging, med list, and PT/OT notes.
[2025-01-28] MEDS: ALBUMIN HUMAN 25 GM/100 ML PREMIX IV (12:51)
[2025-01-28] MEDS: IPRATROPIUM/ALBUTEROL SULFATE 3 ML AMPUL.NEB IH ×2 (14:53→20:18)
--- NOTE | 2025-01-28 15:00 | RESP.RT ---
decreased to 50% 40 LPM
--- NOTE | 2025-01-28 15:06 | SWNOTE1 ---
LUÍS received a message from Leanne at [facility]. She stated their DON would like to follow patient through the weekend and follow up on Friday. The DON would like pt to be around 4-5 liters nasal canula for them to manage. No precert started.
[2025-01-28] MEDS: INSULIN ASPART 300 UNIT/3 ML PEN SUBQ ×2 (16:31→22:03)
[2025-01-28] MEDS: ATORVASTATIN CALCIUM 10 MG TABLET PO (22:04)
[2025-01-28] MEDS: ENOXAPARIN SODIUM 30 MG/0.3 ML SYRINGE SUBQ (22:04)
[2025-01-29] VITALS (110 sets, daily range): BP systolic 132–148; BP diastolic 63–85; PULSE 68–122; TEMP 36.7–36.8; O2SAT 80–98
[2025-01-29 07:41] LABS: Hematocrit 49.7 % (36.0-48.0); Hemoglobin 15.4 g/dL (12.0-16.0); Mean Corpuscular HGB Conc 31.0 g/dL (29.9-35.2); Mean Corpuscular Hemoglobin 30.6 pg (26.7-34.0); Mean Corpuscular Volume 98.8 fL (81.0-99.0); Platelet Count 128 10^3/uL (150-450); Red Blood Count 5.03 10^6/uL (4.20-5.40); White Blood Count 6.0 10^3/uL (4.0-11.0)
[2025-01-29 07:52] LABS: Alanine Aminotransferase 10 U/L (14-59); Albumin Globulin Ratio 0.8; Albumin Level 3.1 g/dL (3.4-5.0); Alkaline Phosphatase 60 U/L (46-116); Anion Gap 4.8; Aspartate Amino Transferase 14 U/L (15-37); Blood Urea Nitrogen 33.0 mg/dL (7.0-18.0); Calcium 8.9 mg/dL (8.5-10.1); Carbon Dioxide 48.0 mmol/L (21.0-32.0); Chloride 93 mmol/L (98-107); Estimated GFR (African America 55 (>=60 mL/min/1.73m^2); Estimated GFR (Non-African Ame 46 (>=60 mL/min/1.73m^2); Globulin 3.9 g/dL; Glucose 120 mg/dL (74-106); Potassium 3.8 mmol/L (3.5-5.1); Sodium 142 mmol/L (136-145); Total Protein 7.0 g/dL (6.4-8.2)
[2025-01-29] MEDS: POLYMYXIN B TOPICAL ×2 (08:59→22:06)
[2025-01-29] MEDS: BACITRACIN TOPICAL ×2 (08:59→22:06)
[2025-01-29] MEDS: ALLOPURINOL 100 MG TABLET PO (08:59)
[2025-01-29] MEDS: ACETAMINOPHEN 325 MG TABLET 650 MG PO ×3 (08:59→22:05)
[2025-01-29] MEDS: NEOMYCIN TOPICAL ×2 (08:59→22:06)
--- NOTE | 2025-01-29 09:21 | PT.DAILY ---
Physical Therapy Daily Note PT Daily Note/Assess Start: 01/27/25 13:08 Freq: Status: Active Protocol: Document 01/29/25 09:10 [id number] (Rec: 01/29/25 09:21 [id number]) Physical Therapy Daily Note/Assessment Time In/Time Out Time In 08:34 Time Out 08:53 Pain In Pain Level 3 Pain Out Pain Level 4 Subjective Subjective Patient received seated in chair at bedside. Patient reports she has a CLAIRE at 3/10 and legs are 3-4/10. Patient agreeable to participate with PT. Therapeutic Exercise Time Therapeutic Exercise 5 Minutes (minutes) Therapeutic Exercise 0 Units Therapeutic Exercise Treatment Therapeutic Exercise Patient performed seated LIANNA LE ther ex to increase Treatment strength to improve functional mobility. LIANNA LAQ, MRE hip ABD/ADD and marching for 10 reps each. Requires verbal cues to slow pace of reps for maximal benefit. Therapeutic Activity Time Therapeutic Activity 14 Minutes (minutes) Therapeutic Activity 1 Units Therapeutic Activity Treatment Chair Transfer Minimum Assist,2 Person Assist Ability Therapeutic Activity Verbal cues to scoot to edge of chair and to place Comments hands on arm rests in preparation for transfers. Sit to stand transfer to 2WW MIN A +2. Patient stood for several minutes while nursing cleansed patients backside. Patient walked FWD ~4 feet and returned x 2 with 2WW w/ CGA +1. Patient distance limited due to medical lines. Patient returned to chair with legs elevated, CBWR and all need met. O2 level prior to standing was 84% and post treatment 79%. Nursing aware of O2 levels. Patient requested a Tylenol for her CLAIRE. Notified PRESTON Irvin of patient's request. Total Physical Therapy Time Total Therapy 19 Minutes Total Physical 1 Therapy Units Summary Daily Note Summary Patient with improved functional mobility this date, limited due to fatigue. Verbalizes less R knee pain in weight bearing. Patient verbalizes fatigue post treatment. Patient would benefit from SNF upon discharge to address functional deficits in order to return to PLOF.
[2025-01-29] MEDS: IPRATROPIUM/ALBUTEROL SULFATE 3 ML AMPUL.NEB IH ×3 (09:57→20:37)
[2025-01-29] MEDS: DEXAMETHASONE SOD PHOS 4 MG/ML VIAL IV ×3 (10:12→22:05)
--- NOTE | 2025-01-29 10:22 | CT_ITS ---
[address] [address] Patient Name: KENTON EATON MRN: [id number] date: 1945 Sex: F Assigned Patient Location: Current Patient Location: Accession/Order Number: [id number] Exam Date: 01/29/2025 11:30 Report Date: 01/29/2025 12:35 At the request of: ERIC HEATON MD Procedure: CT angio chest CT ANGIOGRAM OF THE CHEST, PULMONARY EMBOLISM PROTOCOL: Indication: Leg swelling, rule out pulmonary embolism TECHNIQUE: Following intravenous injection of contrast CT scans of the chest were obtained using pulmonary embolism protocol. Coronal and sagittal reconstructed images, as well as volume rendered CT pulmonary angiographic images were also submitted.The CT exam was performed using one or more of the following dose reduction techniques: Automated exposure control, adjustment of the MA and/or Kv according to patient size, or use of the iterative reconstruction technique. FINDINGS: Pulmonary Vasculature: Less than optimal contrast bolus. Mildly enlarged pulmonary trunk 3.5 cm. No large saddle or lobar emboli. Mediastinum : Thoracic aorta demonstrates moderate plaque. No pericardial effusion. No definite mediastinal or hilar adenopathy Lungs: Bibasilar airspace consolidation. Emphysema. No large effusion or pneumothorax. Upper abdomen: No acute findings Soft tissue/bones: Multilevel degenerative changes. CT/CT angio chest IMPRESSION: LESS THAN OPTIMAL TIMING CONTRAST BOLUS. NO DEFINITE CENTRAL TO LUMBAR PULMONARY EMBOLI. CARDIOMEGALY. BIBASILAR AIRSPACE OPACITIES FAVOR ATELECTASIS. Impression dictated by: Juan Alberto Herrera M.D. 01/29/2025 12:35 PM Dictation Location[facility] Electronically authenticated by: [id number] Y Date: 01/29/2025 12:35
--- NOTE | 2025-01-29 10:28 | PM.PN ---
Progress Note: Subjective Subjective Interval history: Patient is feeling better. She continues to require high flow oxygen. 40 L, 60%. Saturation 97%. No chest pain. No abdominal pain. No nausea or vomiting. Exam Narrative Exam Narrative: Patient is in mild respiratory distress. Respiratory is about 16. Patient is on high flow oxygen pale skin and buccal mucosa. Positive for JVD. Chest exam resolution of the bilateral crackles. Heart is regular and tachycardic. Abdomen soft. +1 pitting edema in both legs significant pitting component. Cognitive impairment. Patient is unable to hear me due to hearing loss, Able to lift upper arms and legs against gravity. She needs assist stand up and walk Constitutional Vital Signs, click to edit/add: Last Vital Signs Temp 98.3 F 01/29/25 07:33 Pulse 104 H 01/29/25 10:15 Resp 21 H 01/29/25 10:15 BP 132/79 01/29/25 07:33 Pulse Ox 91 L 01/29/25 10:15 O2 Del Method Nasal Cannula 01/29/25 09:59 O2 Flow Rate 10 01/29/25 10:15 FiO2 50 01/29/25 07:00 Progress Note: Objective Labs Labs: Short CBC 01/29/25 Range/Units 06:40 WBC 6.0 (4.0-11.0) 10^3/uL Hgb 15.4 (12.0-16.0) g/dL Hct 49.7 H (36.0-48.0) % Plt Count 128 L (150-450) 10^3/uL BMP 01/29/25 06:40 Sodium 142 Potassium 3.8 Chloride 93 L Carbon Dioxide 48.0 H BUN 33.0 H Creatinine 1.15 H Glucose 120 H Calcium 8.9 Liver Function 01/29/25 Range/Units 06:40 Total Bilirubin 0.6 (0.2-1.0) mg/dL AST 14 L (15-37) U/L ALT 10 L (14-59) U/L Alkaline Phosphatase 60 (46-116) U/L Albumin 3.1 L (3.4-5.0) g/dL Progress Note: A&P Assessment and Plan (1) Pulmonary edema with congestive heart failure: (2) Acute congestive heart failure: (3) Acute kidney failure: (4) COPD (chronic obstructive pulmonary disease): (5) Hypercapnia: (6) Cognitive attention deficit: (7) Impaired functional mobility and activity tolerance: Plan Acute diastolic heart failure. Repeat echocardiogram showed preserved ejection fraction. Positive for pulmonary hypertension. RVSP is 50. Positive for diastolic heart failure as well. COPD with hypoxic and hypercapnic respiratory failure Pulmonary hypertension. Right ventricular pressure was 55. Acute respiratory failure secondary to above requiring high flow oxygen, 40 L, 80%. Currently down to 40 L, 40%. Significant lower extremities edema. Venous studies negative for DVT Despite removal of the 12 L since admission, the patient continues to be hypoxic requiring high flow oxygen. Every time the nurse tries to wean her down her saturation will drop to 86%. VQ scan showed low to medium probability of PE. Kidney function had improved over the last 24 hours. Creatinine down to 1.15. Clinically I cannot exclude the possibility of pulmonary embolism causing the severe hypoxemia despite fluid removal Risk benefits were discussed. Plan to proceed with a CT of the chest to rule out PE and also take a better look at the lung parenchyma and the significance of her obstructive pulmonary disease Meanwhile, patient developed metabolic alkalosis requiring holding her Lasix. Instead I started her on acetazolamide. Also requested to check influenza and RSV. COVID is negative. Patient may still have viral infection with other viruses that are not detected here such as adenovirus, [place] human pneumo, parainfluenza and others. BALDO, CKD. Likely secondary to heart failure and cardiorenal syndrome. Proved significantly with diuresis. 12 L removal since admission. Cognitive loss, hearing loss I suspect that the patient may have a degree of neurodegenerative disorder, probable vascular dementia. Near baseline according to her stepdaughter. Functional loss. Patient uses a walker and a cane at home as reported by her stepdaughter. Functional impairment is exaggerated by significant lower extremities edema. As well as osteoarthritis deformities. PT OT eval and treatment May require short-term skilled care. Family declined arrangement for skilled understanding potential risk and implication. Family requested discharge home with home health care Diabetes, probable, on . Check A1c. This came back at 5.7. Patient may not have diabetes. Continue sliding scale for now Chronic medical conditions not listed above, incidental findings seen on labs and imaging. These would need to be addressed. Could be addressed when time and condition are appropriate. Could be addressed in the outpatient setting by PCP collaboration with other needed outpatient providers. Urinary Catheter Management Urinary Catheter Management Urethral: Cath placed during this visit: yes Urethral indwelling: No Insertion date: 01/25/25 Insertion time: 16:33
[2025-01-29] MEDS: INSULIN ASPART 300 UNIT/3 ML PEN SUBQ (16:50)
[2025-01-29] MEDS: BUDESONIDE 0.5 MG/2 ML AMPULE NEB IH (20:37)
[2025-01-29] MEDS: ENOXAPARIN SODIUM 30 MG/0.3 ML SYRINGE SUBQ (22:05)
[2025-01-29] MEDS: ATORVASTATIN CALCIUM 10 MG TABLET PO (22:06)
[2025-01-29] MEDS: ACETAZOLAMIDE 250 MG TABLET 500 MG PO (22:06)
[2025-01-30] VITALS (104 sets, daily range): BP systolic 131–141; BP diastolic 62–76; PULSE 69–116; TEMP 36.5–37; O2SAT 82–98
[2025-01-30] MEDS: DEXAMETHASONE SOD PHOS 4 MG/ML VIAL IV ×3 (06:36→21:39)
[2025-01-30 06:47] LABS: Hematocrit 52.2 % (36.0-48.0); Hemoglobin 16.0 g/dL (12.0-16.0); Mean Corpuscular HGB Conc 30.7 g/dL (29.9-35.2); Mean Corpuscular Hemoglobin 30.8 pg (26.7-34.0); Mean Corpuscular Volume 100.6 fL (81.0-99.0); Platelet Count 128 10^3/uL (150-450); Red Blood Count 5.19 10^6/uL (4.20-5.40); White Blood Count 8.5 10^3/uL (4.0-11.0)
[2025-01-30 07:07] LABS: Anion Gap 5.6; Blood Urea Nitrogen 27.0 mg/dL (7.0-18.0); Calcium 8.8 mg/dL (8.5-10.1); Carbon Dioxide 43.1 mmol/L (21.0-32.0); Chloride 95 mmol/L (98-107); Estimated GFR (African America >60 (>=60 mL/min/1.73m^2); Estimated GFR (Non-African Ame 51 (>=60 mL/min/1.73m^2); Glucose 120 mg/dL (74-106); Potassium 3.7 mmol/L (3.5-5.1); Sodium 140 mmol/L (136-145)
[2025-01-30 07:58] LABS: NT Pro B Type Natriuretic Pept 2109.0 pg/mL (<=1800.0)
[2025-01-30] MEDS: ACETAZOLAMIDE 250 MG TABLET 500 MG PO ×2 (08:06→21:40)
[2025-01-30] MEDS: POLYMYXIN B TOPICAL ×2 (08:06→21:40)
[2025-01-30] MEDS: ALLOPURINOL 100 MG TABLET PO (08:06)
[2025-01-30] MEDS: ACETAMINOPHEN 325 MG TABLET 650 MG PO ×2 (08:06→19:58)
[2025-01-30] MEDS: SENNOSIDES/DOCUSATE SODIUM 1 TAB TABLET PO (08:06)
[2025-01-30] MEDS: BACITRACIN TOPICAL ×2 (08:06→21:40)
[2025-01-30] MEDS: NEOMYCIN TOPICAL ×2 (08:06→21:40)
--- NOTE | 2025-01-30 08:36 | P.PN_ITS ---
Progress Note: Subjective Subjective Interval history: Patient is feeling better. Patient is off high flow on 6 L. Saturation 90 %. No chest pain. No abdominal pain. No nausea or vomiting. Exam Narrative Exam Narrative: Patient is in mild respiratory distress. Respiratory is about 16. Patient is on high flow oxygen pale skin and buccal mucosa. Positive for JVD. Chest exam resolution of the bilateral crackles. Heart is regular and tachycardic. Abdomen soft. Trace pitting edema in both legs significant pitting component. Significant resolution of bilateral lower extremities edema compared to admission state. Cognitive impairment. Patient is unable to hear me due to hearing loss, Able to lift upper arms and legs against gravity. She needs assist stand up and walk Constitutional Vital Signs, click to edit/add: Last Vital Signs Temp 98.6 F 01/30/25 07:27 Pulse 75 01/30/25 08:00 Resp 23 H 01/30/25 07:45 BP 138/76 01/30/25 07:27 Pulse Ox 87 L 01/30/25 07:45 O2 Del Method Nasal Cannula 01/30/25 07:27 O2 Flow Rate 5 01/30/25 07:27 FiO2 40 01/29/25 20:37 Progress Note: Objective Labs Labs: Short CBC 01/30/25 Range/Units 06:09 WBC 8.5 (4.0-11.0) 10^3/uL Hgb 16.0 (12.0-16.0) g/dL Hct 52.2 H (36.0-48.0) % Plt Count 128 L (150-450) 10^3/uL BMP 01/30/25 06:09 Sodium 140 Potassium 3.7 Chloride 95 L Carbon Dioxide 43.1 H BUN 27.0 H Creatinine 1.04 H Glucose 120 H Calcium 8.8 Progress Note: A&P Assessment and Plan (1) Pulmonary edema with congestive heart failure: (2) Acute congestive heart failure: (3) Acute kidney failure: (4) COPD (chronic obstructive pulmonary disease): (5) Hypercapnia: (6) Cognitive attention deficit: (7) Impaired functional mobility and activity tolerance: Plan Acute diastolic heart failure. Repeat echocardiogram showed preserved ejection fraction. Positive for pulmonary hypertension. RVSP is 50. Positive for diastolic heart failure as well. COPD with hypoxic and hypercapnic respiratory failure Pulmonary hypertension. Right ventricular pressure was 55. Acute respiratory failure secondary to above requiring high flow oxygen, 40 L, 80%. Currently down to nasal cannula 6 L Significant lower extremities edema. Venous studies negative for DVT Despite removal of the 15 L since admission, the patient continues to be hypoxic requiring high flow oxygen. VQ scan showed low to medium probability of PE. Kidney function had improved over the last 24 hours. Creatinine down to 1.15. CAT scan did not show any large or segmental PE. Clear evidence of obstructive pulmonary disease or destruction. Continue albuterol, Atrovent and Decadron Continue Diamox. Additional potassium supplementation Also requested to check influenza and RSV. COVID is negative. Patient may still have viral infection with other viruses that are not detected here such as adenovirus, [place] human pneumo, parainfluenza and others. Patient may need additional pulmonary evaluation such as a pulmonary function test to determine the significance of her obstructive disease. BALDO, CKD. Likely secondary to heart failure and cardiorenal syndrome. Proved significantly with diuresis. 15 L removal since admission. BALDO had resolved Cognitive loss, hearing loss I suspect that the patient may have a degree of neurodegenerative disorder, probable vascular dementia. Near baseline according to her stepdaughter. Functional loss. Patient uses a walker and a cane at home as reported by her stepdaughter. Functional impairment is exaggerated by significant lower extremities edema. As well as osteoarthritis deformities. PT OT eval and treatment May require short-term skilled care. Family declined arrangement for skilled understanding potential risk and implication. Family requested discharge home with home health care Diabetes, probable, on . Check A1c. This came back at 5.7. Patient may not have diabetes. Continue sliding scale for now Chronic medical conditions not listed above, incidental findings seen on labs and imaging. These would need to be addressed. Could be addressed when time and condition are appropriate. Could be addressed in the outpatient setting by PCP collaboration with other needed outpatient providers. Urinary Catheter Management Urinary Catheter Management Urethral: Cath placed during this visit: yes Urethral indwelling: No Insertion date: 01/25/25 Insertion time: 16:33
[2025-01-30] MEDS: POTASSIUM CHLORIDE 10 MEQ ER TABLET 20 MEQ PO ×2 (08:56→09:25)
[2025-01-30] MEDS: SODIUM CHLORIDE 0.65% OCEAN NASAL SPRAY 2 SPRAY NS (08:56)
[2025-01-30] MEDS: BUDESONIDE 0.5 MG/2 ML AMPULE NEB IH ×2 (09:44→20:32)
[2025-01-30] MEDS: IPRATROPIUM/ALBUTEROL SULFATE 3 ML AMPUL.NEB IH ×3 (09:44→20:32)
[2025-01-30] MEDS: ATORVASTATIN CALCIUM 10 MG TABLET PO (21:40)
[2025-01-30] MEDS: ENOXAPARIN SODIUM 40 MG/0.4 ML SYRINGE SUBQ (21:40)
[2025-01-30] MEDS: INSULIN ASPART 300 UNIT/3 ML PEN SUBQ (21:55)
[2025-01-31] VITALS (68 sets, daily range): BP systolic 131–141; BP diastolic 70–81; PULSE 65–191; TEMP 36.4–37; O2SAT 83–97
[2025-01-31] MEDS: DEXAMETHASONE SOD PHOS 4 MG/ML VIAL IV ×2 (05:37→19:48)
[2025-01-31] MEDS: POLYMYXIN B TOPICAL ×2 (08:03→22:02)
[2025-01-31] MEDS: POTASSIUM CHLORIDE 10 MEQ ER TABLET 20 MEQ PO (08:03)
[2025-01-31] MEDS: ALLOPURINOL 100 MG TABLET PO (08:03)
[2025-01-31] MEDS: BACITRACIN TOPICAL ×2 (08:03→22:02)
[2025-01-31] MEDS: ACETAZOLAMIDE 250 MG TABLET 500 MG PO (08:03)
[2025-01-31] MEDS: NEOMYCIN TOPICAL ×2 (08:03→22:02)
--- NOTE | 2025-01-31 08:10 | CM.NOTE ---
Rounds made with Dr. Sahu, pt up in chair and RN weaning oxygen as tolerated.
--- NOTE | 2025-01-31 08:31 | REH.PTDLY ---
Physical Therapy Daily Note PT Daily Note/Assess Start: 01/27/25 13:08 Freq: Status: Active Protocol: Document 01/31/25 08:16 ESTEPHANIE (Rec: 01/31/25 08:31 [id number]) Physical Therapy Daily Note/Assessment Time In 07:58 Time Out 08:12 Subjective Pt up in chair upon arrival. Agreeable to therapy. Nursing comes in and states she just put pt on nasal cannula at 6 L of O2. SpO2 at 88%. Therapeutic Exercise 8 Minutes (minutes) Therapeutic Exercise 1 Units Therapeutic Exercise Pt performed Jesse LE exs in seated position 10-12x ea Treatment with several verbal cues needed for pt understanding. Cues for pt to perform at slower pace as well. Pt performs AP, LAQ, hip add, hip abd MRE, and marching. Therapeutic Activity 6 Minutes (minutes) Therapeutic Activity 0 Units Therapeutic Activity Sit to stand transfer from chair SBA with pt using Comments chair arms to push up. Gait training with RW on 6 L of O2 4 feet forward and retro 3x. Pt's SpO2 levels start to decline, instructed pt to sit as she has dropped to 83%, dropped to 80% once sitting. Cues for pt to breathe thru her nose opposed to her mouth. Sats rise back up to 87%, nursing in room and increases O2 flow. Nursing in room with pt setting her up for breakfast post rx. Total Therapy 14 Minutes Total Physical 1 Therapy Units Daily Note Summary Pt now on 6L of O2, but still having low O2 sats of 88% at rest and dropping further with activity. Nursing adjusting O2 after therapy. Several cues needed during rx for proper breathing techniques. Pt denies any knee pain today when asked, opposed to previous visits. Pt reports she feels fine during rx when asked with activity, even though O2 sats report otherwise.
[2025-01-31] MEDS: IPRATROPIUM/ALBUTEROL SULFATE 3 ML AMPUL.NEB IH ×3 (08:44→20:35)
[2025-01-31] MEDS: BUDESONIDE 0.5 MG/2 ML AMPULE NEB IH ×2 (08:47→20:36)
--- NOTE | 2025-01-31 09:38 | SWNOTE1 ---
LUÍS sent updated physician notes, labs, vtials, med list, and PT/OT from the weekend to Polly at [facility]. LUÍS advised that pt is between 6 and 7 liters nasal canula. SW waiting to hear back.
--- NOTE | 2025-01-31 10:19 | PC.NURSE ---
pt sitting up in chair, resting. spo2 84% on 6lnc, increased to 7lnc, no change in spo2. increased to 8lnc and rt called. pt breathing through mouth, when pt breaths through nose, spo2 increases. pt placed on simple mask per rt, 96% on 7lnc, decreased to 6lnc, spo2 96%
--- NOTE | 2025-01-31 12:32 | SWNOTE1 ---
SW received a message from Polly at [facility] and they are alright to start precert. SW confirmed with nurse and ok to have precert started. SW faxed most recent vitals as well.
--- NOTE | 2025-01-31 12:33 | SWNOTE1 ---
SW faxed OT note as well to Leanne at [facility].
--- NOTE | 2025-01-31 13:01 | SWNOTE1 ---
SW stopped to see pt. Pt was sitting in chair, step daughter Shaunna was present as well. Pt voiced she was feeling better. Nurse in room as well and she is on 4 liters now. SW did let pt and Shaunna know that precert has been started to [facility]. Shaunna did voiced that her legs are less swollen and she seemed better. Shaunna voiced [facility] is very last resort and still wanting pt to return home with home health. LUÍS did ask Shaunna if she could be here for therapy to see if pt is close to her baseline? Shaunna voiced she was here one day while they were doing therapy. SW did recommend to come in the morning during therapy again, that way she can see pt ambulating and transferring. Shaunna did ask medically when physician is thinking for discharge? SW was unsure at this time. LUÍS did ask what home health compnay pt had in the past? Pt and daughter unsure, but recommended calling [facility] as they set it up when she left there. SW to call. LUÍS did explain to pt and daughter that pt could be close to being medically stable for discharge from hospital, but still need some rehab. Shaunna again voiced home health would be first option. SW also explained there is chance pt will need home oxygen at discharge as well. This would be new for pt. Shaunna voiced understanding. Shaunna would like to speak with physician if possible. SW to reach out. LUÍS sent Dr. Sahu a message in regards to step daughter wanting to speak with physician. LUÍS reached out to Sharath and Mari at [facility] to see if they know what home health company was used for pt. Waiting to hear back.
[2025-01-31] MEDS: SENNOSIDES/DOCUSATE SODIUM 1 TAB TABLET 2 TAB PO (14:29)
[2025-01-31] MEDS: MAGNESIUM CITRATE 296 ML SOLUTION PO (14:30)
--- NOTE | 2025-01-31 16:54 | P.PN_ITS ---
Progress Note: Subjective Subjective Interval history: Patient is feeling better. Patient is off high flow on 6 L. Saturation 94 %. No chest pain. No abdominal pain. No nausea or vomiting. Exam Narrative Exam Narrative: Patient is in mild respiratory distress. Respiratory is about 16. Patient is on high flow oxygen pale skin and buccal mucosa. Positive for JVD. Chest exam resolution of the bilateral crackles. Heart is regular and tachycardic. Abdomen soft. Trace pitting edema in both legs significant pitting component. Significant resolution of bilateral lower extremities edema compared to admission state. Cognitive impairment. Patient is unable to hear me due to hearing loss, Able to lift upper arms and legs against gravity. She needs assist stand up and walk Constitutional Vital Signs, click to edit/add: Last Vital Signs Temp 97.9 F 01/31/25 07:16 Pulse 78 01/31/25 16:16 Resp 24 H 01/31/25 16:16 BP 138/70 01/31/25 16:16 Pulse Ox 92 L 01/31/25 16:16 O2 Del Method Nasal Cannula 01/31/25 16:00 O2 Flow Rate 2 01/31/25 16:00 FiO2 40 01/31/25 07:16 Progress Note: A&P Assessment and Plan (1) Pulmonary edema with congestive heart failure: (2) Acute congestive heart failure: (3) Acute kidney failure: (4) COPD (chronic obstructive pulmonary disease): (5) Hypercapnia: (6) Cognitive attention deficit: (7) Impaired functional mobility and activity tolerance: Plan Acute diastolic heart failure. Repeat echocardiogram showed preserved ejection fraction. Positive for pulmonary hypertension. RVSP is 50. Positive for diastolic heart failure as well. COPD with hypoxic and hypercapnic respiratory failure Pulmonary hypertension. Right ventricular pressure was 55. Acute respiratory failure secondary to above requiring high flow oxygen, 40 L, 80%. Currently down to nasal cannula 6 L Significant lower extremities edema. Venous studies negative for DVT Despite removal of the 15 L since admission, the patient continues to be hypoxic requiring high flow oxygen. VQ scan showed low to medium probability of PE. Kidney function had improved over the last 24 hours. Creatinine down to 1.15. CAT scan did not show any large or segmental PE. Clear evidence of obstructive pulmonary disease or destruction. Continue albuterol, Atrovent and Decadron Continue Diamox. Additional potassium supplementation Also requested to check influenza and RSV. COVID is negative. Patient may still have viral infection with other viruses that are not detected here such as adenovirus, [place] human pneumo, parainfluenza and others. Patient may need additional pulmonary evaluation such as a pulmonary function test to determine the significance of her obstructive disease. BALDO, CKD. Likely secondary to heart failure and cardiorenal syndrome. Proved significantly with diuresis. 15 L removal since admission. BALDO had resolved Cognitive loss, hearing loss I suspect that the patient may have a degree of neurodegenerative disorder, probable vascular dementia. Near baseline according to her stepdaughter. Functional loss. Patient uses a walker and a cane at home as reported by her stepdaughter. Functional impairment is exaggerated by significant lower extremities edema. As well as osteoarthritis deformities. PT OT eval and treatment May require short-term skilled care. Family declined arrangement for skilled understanding potential risk and implication. Family requested discharge home with home health care Diabetes, probable, on . Check A1c. This came back at 5.7. Patient may not have diabetes. Continue sliding scale for now Chronic medical conditions not listed above, incidental findings seen on labs and imaging. These would need to be addressed. Could be addressed when time and condition are appropriate. Could be addressed in the outpatient setting by PCP collaboration with other needed outpatient providers. I discussed her case with her dtr in law at length. ( 30 mins ) Urinary Catheter Management Urinary Catheter Management Urethral: Cath placed during this visit: yes Urethral indwelling: No Insertion date: 01/25/25 Insertion time: 16:33
[2025-01-31] MEDS: ACETAMINOPHEN 325 MG TABLET 650 MG PO (19:48)
[2025-01-31] MEDS: ENOXAPARIN SODIUM 40 MG/0.4 ML SYRINGE SUBQ (22:00)
[2025-01-31] MEDS: ATORVASTATIN CALCIUM 10 MG TABLET PO (22:01)
[2025-01-31] MEDS: ACETAZOLAMIDE 250 MG TABLET PO (22:02)
[2025-02-01] VITALS (40 sets, daily range): BP systolic 120–144; BP diastolic 72–81; PULSE 68–90; TEMP 36.6; O2SAT 86–97
[2025-02-01 06:13] LABS: Anion Gap 7.2; Blood Urea Nitrogen 35.0 mg/dL (7.0-18.0); Calcium 9.1 mg/dL (8.5-10.1); Carbon Dioxide 35.2 mmol/L (21.0-32.0); Chloride 99 mmol/L (98-107); Estimated GFR (African America >60 (>=60 mL/min/1.73m^2); Estimated GFR (Non-African Ame 56 (>=60 mL/min/1.73m^2); Glucose 113 mg/dL (74-106); Potassium 4.4 mmol/L (3.5-5.1); Sodium 137 mmol/L (136-145)
[2025-02-01] MEDS: BACITRACIN TOPICAL (08:02)
[2025-02-01] MEDS: ACETAZOLAMIDE 250 MG TABLET PO (08:02)
[2025-02-01] MEDS: NEOMYCIN TOPICAL (08:02)
[2025-02-01] MEDS: ACETAMINOPHEN 325 MG TABLET 650 MG PO (08:02)
[2025-02-01] MEDS: POLYMYXIN B TOPICAL (08:02)
[2025-02-01] MEDS: POTASSIUM CHLORIDE 10 MEQ ER TABLET 20 MEQ PO (08:02)
[2025-02-01] MEDS: ALLOPURINOL 100 MG TABLET PO (08:03)
[2025-02-01] MEDS: SENNOSIDES/DOCUSATE SODIUM 1 TAB TABLET 2 TAB PO (08:03)
[2025-02-01] MEDS: DEXAMETHASONE SOD PHOS 4 MG/ML VIAL IV (08:03)
--- NOTE | 2025-02-01 08:30 | CM.NOTE ---
CRF completed for correction at discharge. SW will set up transport and contact family.
--- NOTE | 2025-02-01 08:52 | REH.PTDLY ---
Physical Therapy Daily Note PT Daily Note/Assess Start: 01/27/25 13:08 Freq: Status: Active Protocol: Document 02/01/25 08:41 ESTEPHANIE (Rec: 02/01/25 08:52 ESTEPHANIE [id number]) Physical Therapy Daily Note/Assessment Time In 07:48 Time Out 08:07 Subjective Pt in bed upon arrival and is awake. Seems disoriented, but once talking closer to pt's left ear pt does better at conversing. Nursing reports she was already in with pt this morning and pt can get up into chair for breakfast. Pt has O2 in mouth on 2L, SpO2 at 90% Therapeutic Exercise 6 Minutes (minutes) Therapeutic Exercise 0 Units Therapeutic Exercise Instructed in B LE seated exs 15x ea for improved Treatment strength with tactile cues to prevent pt from performing exs at such a rapid pace. Exs included LAQ, marching, hip abd, and hip add squeeze. Therapeutic Activity 10 Minutes (minutes) Therapeutic Activity 1 Units Therapeutic Activity Attempted putting O2 in nose while pt is resting in Comments supine, but O2 sats start to drop to 85%. Placed back in pt's mouth and they rise back to 88-90%. Pt requires Min A with supine to sit transfer from bed. Pt able to perform sit to stand transfers SBA. Gait training with 2L of O2 in mouth 15 feet with RW CGA, cues for when turning to sit in chair and cues for pt to reach back for chair for safety. SpO2 at 83% after gait and increases quickly back to 88% once sitting. Nursing in room upon exiting. Total Therapy 16 Minutes Total Physical 1 Therapy Units Daily Note Summary Progressed with gait distance this morning with pt's O2 dropping again. Pt does recover better with O2 placed in mouth opposed to nose since pt is a mouth breather. Several cues needed verbal and tactile with exs for pt to perform properly. Pt does need Min A with supine to sit transfers to sit bedside. Pt fatigued after 15 feet of gait. Pt would benefit from SNF stay to improve strength due to weakness/fatigue with gait and O2 sats dropping with activity.
--- NOTE | 2025-02-01 09:00 | CM.NOTE ---
Rounds made with Dr. Sahu, pt will discharge to [facility] for skilled care. SW will update family on pt's discharge.
--- NOTE | 2025-02-01 09:01 | SWNOTE1 ---
LUÍS received a message from Jennifer at [facility] and pt is approved. SW sent message to case management.
--- NOTE | 2025-02-01 09:41 | SWNOTE1 ---
LUÍS called and spoke to step daughter, Shaunna. SW advised that pt is stable for discharge today. SW did ask if she spoke to physician yesterday about pt going to rehab. She voiced that she did and he did recommend she goes for 2-3 weeks to get her strength built up for home. Shaunna and pt are in agreement with this. Shaunna did ask about oxygen level, SW addressed and she did ask about mccray and water pill at discharge. LUÍS advised that SW will have to check with case management. Shaunna did ask about transportation, LUÍS advised we will set up trips so pt can go by wheelchair with her oxygen. Shaunna also asked about oxygen at discharge from [facility]. LUÍS advised that [facility] will assess once she is ready for discharge from there. Shaunna asked about portability and that she does not want the tubing. LUÍS advised that [facility] will complete walk test and assess at discharge from their facility. SW to call Shaunna back with time and answers to her questions about water pill and mccray.
--- NOTE | 2025-02-01 10:49 | PM.DS1 ---
DS: Providers Provider Date of admission: 01/25/25 20:00 Primary care physician: MANOLO DAILY Consults: 01/25/25 17:44 Occupational Therapy Eval and Treat Routine Reason for consultation: Weakness Physical Therapy Eval and Treat Routine Reason for consultation: Weakness DS: Diagnosis Discharge Diagnosis (1) Pulmonary edema with congestive heart failure: (2) Acute congestive heart failure: (3) Acute kidney failure: (4) COPD (chronic obstructive pulmonary disease): (5) Hypercapnia: (6) Cognitive attention deficit: (7) Impaired functional mobility and activity tolerance: Plan As listed above, below and others that are not listed DS: Summary Hospital Course Hospital Course: Mrs. Guzman is a 79-year-old female who came in with shortness of breath. She was found to have the following: Acute diastolic heart failure. Repeat echocardiogram showed preserved ejection fraction. Positive for pulmonary hypertension. RVSP is 50. Positive for diastolic heart failure as well. COPD with hypoxic and hypercapnic respiratory failure Pulmonary hypertension. Right ventricular pressure was 55. Acute respiratory failure secondary to above requiring high flow oxygen, 40 L, 80%. Currently down to nasal cannula 2-4 L Significant lower extremities edema. Venous studies negative for DVT Despite removal of the 20 L since admission, noticeable improvement of her oxygenation since admission down from high flow oxygen 40 L, 80% to 2 to 4 L today. VQ scan showed low to medium probability of PE. CAT scan did not show any large or segmental PE. Clear evidence of obstructive pulmonary disease or destruction. Continue albuterol, Atrovent and Decadron Continue Diamox due to alkalosis. Additional potassium supplementation. Alkalosis had resolved. Change diuretics to torsemide on discharge Also requested to check influenza and RSV. COVID is negative. Patient may still have viral infection with other viruses that are not detected here such as adenovirus, [place] human pneumo, parainfluenza and others. Patient may need additional pulmonary evaluation such as a pulmonary function test to determine the significance of her obstructive disease. BALDO, CKD. Likely secondary to heart failure and cardiorenal syndrome. Proved significantly with diuresis. 20 L removal since admission. BALDO had resolved Cognitive loss, hearing loss I suspect that the patient may have a degree of neurodegenerative disorder, probable vascular dementia. Near baseline according to her stepdaughter. Functional loss. Patient uses a walker and a cane at home as reported by her stepdaughter. Functional impairment is exaggerated by significant lower extremities edema. As well as osteoarthritis deformities. PT OT eval and treatment Discussed her care with the case management, PT OT team and her [id number]. Plan is to discharge to skilled care Diabetes, probable, on . Check A1c. This came back at 5.7. Patient may not have diabetes. Discontinue sliding scale Chronic medical conditions not listed above, incidental findings seen on labs and imaging. These would need to be addressed. Could be addressed when time and condition are appropriate. Could be addressed in the outpatient setting by PCP collaboration with other needed outpatient providers. Patient has multiple complex medical issues as listed above and others that are not listed. All appear to be stable. Patient had made significant improvement of her status since admission. I do not have any clear or strong clinical justification to extend inpatient hospitalization. Patient however will require close and frequent monitoring as well as additional work-up, investigation and therapeutic intervention that could take place from this point on post discharge. That is to prevent relapse, decompensation, rehospitalization and other medical implications. I instructed patient to ask her primary care doctor to obtain [facility] record entirely to address abnormalities seen on labs and imaging that I have and have not addressed during this hospitalization, follow-up on pending blood work, imaging and pathology is if available and to follow-up on needed medical care in the outpatient setting. Time Spent with Patient Time attestation: Total time spent providing and/or coordinating discharge services: Exam Narrative Exam Narrative: Patient is sitting up in a chair. She is on 2 L nasal cannula. Saturation 91%. Comfortable. Awake and oriented. Eating breakfast. Chest exam revealed resolution of crackles. Heart regular. Abdomen soft. Lower extremity showed significant resolution of +3 pitting edema compared to presentation. Functional cognitive loss for which patient will be going to skilled care. Constitutional Vital Signs, click to edit/add: Last Vital Signs Temp 97.8 F 02/01/25 07:48 Pulse 70 02/01/25 10:45 Resp 20 02/01/25 10:45 BP 129/75 02/01/25 07:32 Pulse Ox 97 02/01/25 10:45 O2 Del Method Nasal Cannula 02/01/25 09:04 O2 Flow Rate 2 02/01/25 09:04 FiO2 40 01/31/25 07:16 DS: Data Data Completed and Pending Labs on day of discharge: Labs from last 24 hours 02/01/25 01/31/25 01/31/25 05:31 22:49 16:09 Sodium 137 Potassium 4.4 Chloride 99 Carbon Dioxide 35.2 H Anion Gap 7.2 BUN 35.0 H Creatinine 0.96 Est GFR ( Amer) >60 Est GFR (Non-Af Amer) 56 L BUN/Creatinine Ratio 36.5 Glucose 113 H Calcium 9.1 POC Glucose 134 H 107 H 01/31/25 11:35 Sodium Potassium Chloride Carbon Dioxide Anion Gap BUN Creatinine Est GFR ( Amer) Est GFR (Non-Af Amer) BUN/Creatinine Ratio Glucose Calcium POC Glucose 119 H Discharge Plan Discharge Disposition: Xfer SNF Condition: Fair Discharge Medications: New ipratropium-albuterol 0.5 mg-3 mg(2.5 mg base)/3 mL Solution For Nebulization 3 ml inhalation RTTID PRN (Reason: Wheezing and SOB) Qty: 90 0RF sennosides-docusate sodium 8.6-50 mg Tablet 2 tab PO QD Qty: 0 0RF Deep Sea Nasal 0.65 % Aerosol,[place] 2 spray intranasal QID PRN (Reason: Dry Nasal Passages) Qty: 0 0RF polyethylene glycol 3350 [Miralax] 17 gram/dose powder 8.5 g PO DAILY PRN (Reason: constipation) Qty: 119 0RF prednisone 10 mg tablet 10 mg PO .as directed Qty: 30 0RF Rx Instructions: Take 1 tablet 3 times a day for 5 days then 1 tablet twice a day for 5 days then 1 tablet daily for 5 days torsemide 10 mg tablet 10 mg PO DAILY Qty: 30 0RF spironolactone [Aldactone] 25 mg tablet 25 mg PO DAILY Qty: 30 0RF fluticasone propion-salmeterol [Advair HFA] 115-21 mcg/actuation HFA aerosol inhaler 2 inh inhalation BID Qty: 12 0RF cholecalciferol (vitamin D3) [Vitamin D3] 25 mcg (1,000 unit) tablet 25 mcg PO DAILY Qty: 30 0RF Continued atorvastatin 10 mg tablet 10 mg PO .QHS allopurinol 100 mg tablet 100 mg PO .QD Discontinued dapagliflozin propanediol [Farxiga] 10 mg tablet 10 mg PO .QD cholecalciferol (vitamin D3) 1,250 mcg (50,000 unit) capsule 1,250 mcg PO QWEEK Patient Comments: patient takes on fridays Print Language: Romansh Activity Restrictions/Additional Instructions: I may not have addressed or treated all of your medical illnesses or the abnormal blood work or imaging studies during this hospitalization. Please ask your primary care provider to obtain [facility] records entirely to follow up on all of the abnormal physical, laboratory, and imaging findings that I have not addressed. Please return back to the emergency room or seek medical attention if your symptoms worsen or return. For care home provider Titrate oxygen to keep saturation between 90 and 92 BMP weekly Fall precaution Discharging you from [facility] does not mean that your medical care ends here and now. You may still need additional monitoring, work up, investigation, and treatment plan to be handled from this point on by out patient providers including your primary care provider and specialists. For any medication question, please contact your retail pharmacist or your primary care provider. Thank you. Forms: Portal Instructions Referrals: ROSLYN LOVE MD [Physician, Family Practice] Referral Note: Regarding COPD MANOLO DAILY [Primary Care Provider, Family Practice]
--- NOTE | 2025-02-01 12:30 | SWNOTE1 ---
Pt is being discharged to [facility] skilled today. LUÍS faxed dc med rec and dc summary to Jennifer at [facility]. LUÍS completed HENS online. LUÍS called and set up trips for 5-5:30 pm. LUÍS notified [facility], nurse, and Shaunna (step daughter of time). LUÍS also let Shaunna know that there is water pill in her dc med rec. LUÍS let her know visiting hours and the code to get in to [facility] once doors locked. Shaunna did request that she gets a call once pt leaves the hospital. LUÍS to tell pt's nurse the request. LUÍS took CRF and packet out to med surge floor.
--- NOTE | 2025-02-01 15:59 | PC.NURSE ---
iv dc'd and tele dc'd for discharge. report called to [facility], given to [place]en[place]. pt aware of dc, supper ordered.
[2025-02-01] MEDS: IPRATROPIUM/ALBUTEROL SULFATE 3 ML AMPUL.NEB IH (16:08)
--- NOTE | 2025-02-01 16:42 | PC.NURSE ---
taken to exit via wheelchair and with o2 tank. 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 son aware of eta to [facility].
== END 2025-02-01 16:35 | DRG 291 ==
LOC: ER 16:39 → MS 20:10
PROVIDERS: Physician Assistant; Admitting Provider Internal Medicine; Emergency Provider Emergency Medicine; PCP Family Medicine; Visit Provider Internal Medicine
DX: I13.0 Hypertensive heart and chronic kidney disease with heart failure and stage 1 through stage 4 chronic kidney disease, or unspecified chronic kidney disease (principal); I50.31 Acute diastolic (congestive) heart failure; J96.02 Acute respiratory failure with hypercapnia; J96.01 Acute respiratory failure with hypoxia; N17.9 Acute kidney failure, unspecified; E87.3 Alkalosis; E11.22 Type 2 diabetes mellitus with diabetic chronic kidney disease; N18.30 Chronic kidney disease, stage 3 unspecified; J44.9 Chronic obstructive pulmonary disease, unspecified; I27.20 Pulmonary hypertension, unspecified; H91.90 Unspecified hearing loss, unspecified ear; Z87.891 Personal history of nicotine dependence; Z79.84 Long term (current) use of oral hypoglycemic drugs; Z79.899 Other long term (current) drug therapy; E78.5 Hyperlipidemia, unspecified; Z87.440 Personal history of urinary (tract) infections; Z87.01 Personal history of pneumonia (recurrent); R41.840 Attention and concentration deficit; F01.50 Vascular dementia, unspecified severity, without behavioral disturbance, psychotic disturbance, mood disturbance, and anxiety
CPT/HCPCS: 36415; 36600; 51702; 71045; 71275; 78582; 80048; 80053; 80061; 81001; 82805; 82948; 83036; 83735; 83880; 84100; 84484; 85025; 85027; 87420; 87804; 87811; 90677; 93005; 93306; 93970; 94640; 94660; 94667; 94668; 94761; 94799; 96374; 96375; 97110; 97161; 97165; 97530; 97535; 99291; A9540; A9567; J1100; J1650; J1938; J2919; P9046; Q9967